=== PATIENT | male | born 1970 | race Caucasian/White ===

== ENCOUNTER 2017-01-19 15:50 | Inpatient (IN) | payer OTHER ==
[~2017-01-19] VITALS: Ht 193 cm; Wt 101.4 kg
[~2017-01-19 15:50] MED LIST: GABA-113 PO; HMLI SC; IBUP-1050 PO; INSUINJ12 SC; METF-384 PO; ONDA8TAB7 PO; PROC1TAB5 PO; XLD/500 PO
[2017-01-19] MEDS ORDERED: VANCOMYCIN 1GM/270ML NSS IV STA (17:58)
[2017-01-19] MEDS ORDERED: PIPERACILLIN/TAZOBACTAM 4.5 GM/100ML D5W IV STA (17:58)
[2017-01-19] MEDS ORDERED: SODIUM CHLORIDE 0.9% 1000ML 1,000 ML IV ONE (18:00)
[2017-01-19] MEDS ORDERED: TRIF0.27 PO (18:01)
[2017-01-19] MEDS ORDERED: ATOR-22 PO (18:06)
[2017-01-19] MEDS ORDERED: NITR1CAP32 PO (18:07)
[2017-01-19] MEDS ORDERED: NITR100C41 PO (18:08)
[2017-01-19] MEDS ORDERED: OLAN10TA11 PO (18:09)
[2017-01-19] MEDS ORDERED: LVMI SC (18:15)
[2017-01-19] MEDS ORDERED: ZFR/8 PO (18:20)
[2017-01-19 18:36] LABS: BASO % 0.2 %; BASO ABS # 0.01 K/uL (0-0.2); COMPLETE YES; EOS % 0.7 %; HEMATOCRIT 31.2 % (42-52); IG% 0.2 %; LYMPH % 18.2 %; LYMPH ABS # 1.02 K/uL (1.2-3.4); MEAN CELL VOLUME 80.4 fL (80-100); MEAN CORPUSCULAR HEMOGLOBIN 26.5 pg (25-34); MEAN PLATELET VOLUME 9.4 fL (7.4-10.4); MONO % 10.2 %; NEUT % 70.5 %; PLATELET COUNT 372 K/uL (130-400); RED BLOOD COUNT 3.88 M/uL (4.7-6.1); WHITE BLOOD COUNT 5.59 K/uL (4.8-10.8)
[2017-01-19 18:53] LABS: CALCIUM 9.2 mg/dl (8.5-10.1); CREATININE 1.7 mg/dl (0.60-1.40); POTASSIUM 4.4 mmol/L (3.5-5.1)
[2017-01-19 19:03] LABS: BETA-HYDROXYBUTYRATE 0.92 mg/dL (0.2-2.81)
--- NOTE | 2017-01-19 19:12 | DIAGNOSTIC IMAGING REPORT ---
RIGHT FOOT MIN 3 VIEWS ROUTINE CLINICAL HISTORY: foot infection Right pain COMPARISON: 11/18/2013 DISCUSSION: Prior dictation phalanges of the right great toe. Cortical fracture distal aspect proximal phalanx fourth toe. Localized soft tissue edematous change. Heel spur. Soft tissue vascular calcifications. Moderate generalized soft tissue edema IMPRESSION: Cortical fracture distal aspect proximal phalanx fourth toe. Soft tissue edematous change. Postoperative changes as noted Electronically signed by: Edmund Iniguez M.D. 01/19/2017 7:10 PM Dictated Date/Time: 01/19/2017 7:09 PM
[2017-01-19] MEDS ORDERED: GLUCOSE 10 TABS/TUBE PO PRN (19:30)
[2017-01-19] MEDS ORDERED: ACETAMINOPHEN 325 MG TAB PO PRN (19:30)
[2017-01-19] MEDS ORDERED: ONDANSETRON INJ 2 MG/ML 2 ML VIAL IV PRN (19:30)
[2017-01-19] MEDS ORDERED: GLUCAGON FOR INJ 1 MG VIAL SQ PRN (19:30)
[2017-01-19] MEDS ORDERED: ONDANSETRON 8 MG TAB PO PRN (19:30)
[2017-01-19] MEDS ORDERED: GLUCOSE 40% GEL 15 GM TUBE PO PRN (19:30)
[2017-01-19] MEDS ORDERED: PROCHLORPERAZINE MALEATE 10 MG TAB PO PRN (19:30)
[2017-01-19] MEDS ORDERED: ZOLPIDEM TARTRATE 5 MG TAB PO PRN (19:30)
[2017-01-19] MEDS ORDERED: DEXTROSE 50% 50 ML SYR IV PRN (19:30)
[2017-01-19] MEDS ORDERED: VANCOMYCIN CONSULT ACTIVE PRN (21:00)
[2017-01-19] MEDS ORDERED: PIPERACILL/TAZOBAC CONSULT ACTIVE PRN (21:00)
--- NOTE | 2017-01-19 21:11 | History and Physical ---
History & Physical Date & Time of Service: Jan 19, 2017 at 21:11 Chief Complaint: Smashed 4TH Toe On Rt Foot Primary Care Physician: Ozzie Cohen M.D. History of Present Illness Source: patient The patient is a 46-year-old male who presents to the emergency department complaining of progressively worsening redness and swelling after injuring his right fourth toe by dropping a heavy object on it several days ago. He has a previous history of diabetic foot ulcers, and is status post amputation of his right great toe. He reports that he was hoping that the symptoms will go away on their own, as he was also hoping that his abnormally high blood sugars in the 250s and 300s since he injured his foot will go away as well. Because of worsening symptoms, he presents to the emergency department for assessment tonight. Past Medical/Surgical History Medical Problems: (1) Colon Cancer Status: Chronic (2) Colostomy Status: Resolved (3) Diabetes mellitus Status: Chronic (4) Necrotizing fasciitis Status: Resolved (5) Rectal adenocarcinoma Status: Chronic Family History No significant family history Social History Smoking Status: Never Smoker Smokeless Tobacco Use: No Alcohol Use: none Drug Use: none Marital Status: single Occupational Status: employed Immunizations History of Influenza Vaccine: Yes Influenza Vaccine Date: Jul 26, 2013 History of Tetanus Vaccine?: utd History of Pneumococcal: Unknown History of Hepatitis B Vaccine: No Multi-Drug Resistant Organisms History of MDRO: No Allergies Coded Allergies: No Known Allergies (Verified , 01/19/17) Home Medications Scheduled Atorvastatin (Lipitor), 20 MG PO HS Gabapentin (Neurontin), 300 MG PO TID Insulin Detemir (Levemir), 100 UNITS SC HS Insulin Lispro (Humalog), 16 UNITS SC AC Metformin Hcl (Glucophage), 1,000 MG PO BID Nitrofurantoin Macrocrystal (Nitrofurantoin), 100 MG PO QPM Olanzapine (Zyprexa), 10 MG PO DAILY Trifluridine-Tipiracil (Lonsurf 20-8.19 mg), 4 TABS PO QAM AND QPM Scheduled PRN Ondansetron (Ondansetron HCl), 8 MG PO Q8H PRN for Nausea Prochlorperazine Maleate (Compazine), 10 MG PO Q6H PRN for Nausea Review of Systems The patient denies chest pain, palpitations, shortness of breath, cough, vision change, hearing change, sore throat, fevers, chills, sweats, weight change, fatigue, nausea, vomiting, abdominal pain, pelvic pain, blood in urine or stool , dysuria, urinary frequency or urgency, lightheadedness, dizziness, headache, memory loss, rash, abnormal bruising or bleeding, imbalance, focal or generalized weakness, arthralgias or myalgias, back or neck pain, night sweats, or allergy symptoms. The review of systems is otherwise negative other than for that already noted above, and at least 10 systems have been reviewed. Physical Exam Vital Signs Date Time Temp Pulse Resp B/P Pulse Ox O2 Delivery O2 Flow Rate FiO2 01/19/17 21:03 104 20 116/83 94 01/19/17 19:21 95 20 111/70 99 Room Air 01/19/17 18:06 103 18 114/77 98 Room Air 01/19/17 15:52 36.6 118 18 117/71 99 Room Air The patient is awake, well-developed and adequately nourished, alert and oriented 3, normocephalic and atraumatic, lying in bed and in no acute distress. HEENT--PERRL, EOMI, mucous membranes and oropharynx dry. Neck--supple, no JVD or bruits, thyroid normal, trachea midline, no adenopathy. Heart--normal S1 and S2, no extra beats, no murmurs, rubs or gallops. Lungs--clear bilaterally with good air movement, no respiratory distress, no accessory muscle use. Abdomen--normal bowel sounds and soft, nontender and nondistended, no hernias or masses, no organomegaly. Extremities--left lower extremity-no cyanosis, clubbing or edema. There are diminished distal pulses b/l. Right lower extremity with 2+ pedal edema, right great toe amputation, erythema and warmth third and fourth toes and skin over second through fifth metatarsals. Dermatologic--normal skin turgor, normal color, warm and dry, no abnormal lymph nodes, no rash. Neurologic--cranial nerves II through XII grossly intact, motor and sensory examination normal. Rheumatologic--normal range of motion, nontender, muscles and joints. Psychiatric--normal affect. Diagnostics Laboratory Results Results Past 24 Hours Test 01/19/17 18:10 01/19/17 18:12 01/19/17 19:29 Range/Units White Blood Count 5.59 4.8-10.8 K/uL Red Blood Count 3.88 4.7-6.1 M/uL Hemoglobin 10.3 14.0-18.0 g/dL Hematocrit 31.2 42-52 % Mean Corpuscular Volume 80.4 80-100 fL Mean Corpuscular Hemoglobin 26.5 25-34 pg Mean Corpuscular Hemoglobin Concent 33.0 32-36 g/dl Platelet Count 372 130-400 K/uL Mean Platelet Volume 9.4 7.4-10.4 fL Neutrophils (%) (Auto) 70.5 % Lymphocytes (%) (Auto) 18.2 % Monocytes (%) (Auto) 10.2 % Eosinophils (%) (Auto) 0.7 % Basophils (%) (Auto) 0.2 % Neutrophils # (Auto) 3.94 1.4-6.5 K/uL Lymphocytes # (Auto) 1.02 1.2-3.4 K/uL Monocytes # (Auto) 0.57 0.11-0.59 K/uL Eosinophils # (Auto) 0.04 0-0.5 K/uL Basophils # (Auto) 0.01 0-0.2 K/uL RDW Standard Deviation 47.0 36.4-46.3 fL RDW Coefficient of Variation 16.2 11.5-14.5 % Immature Granulocyte % (Auto) 0.2 % Immature Granulocyte # (Auto) 0.01 0.00-0.02 K/uL Sodium Level 135 136-145 mmol/L Potassium Level 4.4 3.5-5.1 mmol/L Chloride Level 102 98-107 mmol/L Carbon Dioxide Level 21 21-32 mmol/L Anion Gap 12.0 3-11 mmol/L Blood Urea Nitrogen 29 7-18 mg/dl Creatinine 1.70 0.60-1.40 mg/dl Est Creatinine Clear Calc Drug Dose 65.9 ml/min Estimated GFR () 54.5 Estimated GFR (Non- 47.0 BUN/Creatinine Ratio 17.0 10-20 Random Glucose 325 70-99 mg/dl Calcium Level 9.2 8.5-10.1 mg/dl Beta-Hydroxybutyric Acid 0.92 0.2-2.81 mg/dL Bedside Lactic Acid Venous 2.93 0.90-1.70 mmol/L Bedside Glucose 351 70-99 mg/dl Microbiology Results 01/19/17 Blood Culture, Received Pending 01/19/17 Blood Culture, Received Pending Diagnostic Radiology Patient Name: LUCILLE EASTON Unit Number: [id number] Dictated: 01/19/171908 Transcribed: 01/19/171908 MS Printed Date/Time: [~ rep prt dt]/[~ rep prt tm] [~ rep ct labl] - [~ rep ct ivnm] [facility] [place] [address] Dictated: 01/19/171908 Transcribed: 01/19/171908 MS Printed Date/Time: [~ rep prt dt]/[~ rep prt tm] [~ rep ct labl] - [~ rep ct ivnm] [~ rep ct add3]] RIGHT FOOT MIN 3 VIEWS ROUTINE CLINICAL HISTORY: foot infection Right pain COMPARISON: 11/18/2013 DISCUSSION: Prior dictation phalanges of the right great toe. Cortical fracture distal aspect proximal phalanx fourth toe. Localized soft tissue edematous change. Heel spur. Soft tissue vascular calcifications. Moderate generalized soft tissue edema IMPRESSION: Cortical fracture distal aspect proximal phalanx fourth toe. Soft tissue edematous change. Postoperative changes as noted Electronically signed by: Lucille Iniguez M.D. 01/19/2017 7:10 PM Dictated Date/Time: 01/19/2017 7:09 PM The status of this report is Signed. Draft = Not yet reviewed or approved by Radiologist. Signed = Reviewed and approved by Radiologist. <AttendingPhy></AttendingPhy> <FamilyPhy>Ozzie Cohen M.D.</FamilyPhy> < PrimaryPhy>Ozzie Cohen M.D.</PrimaryPhy> <UnitNumber>[id number]</UnitNumber > <VisitNumber>[id number]</VisitNumber> <PatientName>LUCILLE EASTON</ PatientName> <DateOfBirth>1970</DateOfBirth> <Location>C.EDC</Location> < ServiceDate>01/19/17</ServiceDate> <MNE>ESINDI</MNE> <OrderingPhy>Juanito Garrido PA-C</OrderingPhy> <OrderingPhyMNE>f rep ord dr mccall</OrderingPhyMNE> < DictatingPhyMNE>f rep dict dr mccall</DictatingPhyMNE> <CCListMNE>f rep ct mne</ CCListMNE> <AdmittingPhyMNE>f pt admit dr mccall</AdmittingPhyMNE> <AttendingPhyMNE >f pt attend dr mccall</AttendingPhyMNE> <ConsultingPhyMNE>f pt consult dr mccall</ConsultingPhyMNE> <FamilyPhyMNE>f pt fam dr mccall</FamilyPhyMNE> <OtherPhyMNE>f pt other dr mccall</OtherPhyMNE> < PrimaryPhyMNE>f pt prim care dr mccall</PrimaryPhyMNE> <ReferringPhyMNE>f pt referring dr mccall</ReferringPhyMNE> Patient Name: LUCILLE EASTON Unit Number: [id number] Dictated: 01/19/172142 Transcribed: 01/19/172142 MS Printed Date/Time: [~ rep prt dt]/[~ rep prt tm] [~ rep ct labl] - [~ rep ct ivnm] [facility] [place] [address] Dictated: 01/19/172142 Transcribed: 01/19/172142 MS Printed Date/Time: [~ rep prt dt]/[~ rep prt tm] [~ rep ct labl] - [~ rep ct ivnm] [~ rep ct add3]] ULTRASOUND ART DOP LOWER EXT BILAT CLINICAL HISTORY: diabetic right foot infection COMPARISON STUDY: None FINDINGS: Real-time as well as Doppler evaluation of the arterial structures of the lower legs was performed. Waveforms are triphasic throughout. Velocity characteristics are unremarkable. The following blood pressure indices were obtained. On the right, posterior tibial is 9) and dorsalis pedis is 1.57. On the left, posterior tibial is 1.28 and dorsalis pedis is 1.41. IMPRESSION: Moderate atherosclerotic change throughout. Moderate small vessel change inferior to the knees bilaterally. No evidence for high-grade/or critical stenosis. Electronically signed by: Lucille Iniguez M.D. 01/19/2017 9:46 PM Dictated Date/Time: 01/19/2017 9:43 PM The status of this report is Signed. Draft = Not yet reviewed or approved by Radiologist. Signed = Reviewed and approved by Radiologist. <AttendingPhy>Anmol Henson M.D.</AttendingPhy> <FamilyPhy>Ozzie Cohen M.D.</FamilyPhy> <PrimaryPhy>Ozzie Cohen M.D.</PrimaryPhy> <UnitNumber> [id number]</UnitNumber> <VisitNumber>[id number]</VisitNumber> <PatientName> LUCILLE EASTON</PatientName> <DateOfBirth>1970</DateOfBirth> <Location> C.4E</Location> <ServiceDate>01/19/17</ServiceDate> <MNE>ESINDI</MNE> < OrderingPhy>Anmol Henson M.D.</OrderingPhy> <OrderingPhyMNE>f rep ord dr mccall</OrderingPhyMNE> <DictatingPhyMNE>f rep dict dr mccall</DictatingPhyMNE> < CCListMNE>f rep ct stefany</CCListMNE> <AdmittingPhyMNE>f pt admit dr mccall</ AdmittingPhyMNE> <AttendingPhyMNE>f pt attend dr mccall</AttendingPhyMNE> <ConsultingPhyMNE>f pt consult dr mccall</ConsultingPhyMNE> <FamilyPhyMNE>f pt fam dr mccall</FamilyPhyMNE> <OtherPhyMNE>f pt other dr mccall</OtherPhyMNE> < PrimaryPhyMNE>f pt prim care dr mccall</PrimaryPhyMNE> <ReferringPhyMNE>f pt referring dr mccall</ReferringPhyMNE> Impression Assessment and Plan Right foot diabetic infection/fourth toe proximal phalanx fracture--patient will be admitted to the medical floor. Who placed on vancomycin IV per renal dosing, and Zosyn 3.375 mg IV every 8 hours. He will get a three-phase limited bone scan in the a.m. to assess for possible osteomyelitis. We'll consult infectious disease and wound care to follow patient inpatient and outpatient setting. Of note, he does have a portcan be accessed for long-term antibiotics. We'll also add Floranex 4 tabs by mouth 4 times a day. Diabetes mellitus--continue Levemir insulin 100 units subcutaneous at bedtime. Place on Accu-Cheks before meals and at bedtime with NovoLog coverage. Hold metformin 1000 mg by mouth twice a day and lispro standing order of 16 units subcutaneous before meals. Hypercholesterolemia--continue atorvastatin 20 mg by mouth at bedtime. Next Peripheral neuropathy--continue gabapentin 3 mg by mouth 3 times a day. Metastatic colorectal cancer--continue lonsurf oral chemotherapy. Of note, the patient does have an appointment at [facility] with oncology in 4 days. Level of Care Med/Surg Advanced Directives Existing Advance Directive: No Existing Living Will: No Existing Power of Still Pump Operator: No Resuscitation Status FULL RESUSCITATION VTE Prophylaxis VTE Risk Assessment Done? Y/N: Yes Risk Level: Moderate
--- NOTE | 2017-01-19 21:48 | DIAGNOSTIC IMAGING REPORT ---
ULTRASOUND ART DOP LOWER EXT BILAT CLINICAL HISTORY: diabetic right foot infection COMPARISON STUDY: None FINDINGS: Real-time as well as Doppler evaluation of the arterial structures of the lower legs was performed. Waveforms are triphasic throughout. Velocity characteristics are unremarkable. The following blood pressure indices were obtained. On the right, posterior tibial is 9) and dorsalis pedis is 1.57. On the left, posterior tibial is 1.28 and dorsalis pedis is 1.41. IMPRESSION: Moderate atherosclerotic change throughout. Moderate small vessel change inferior to the knees bilaterally. No evidence for high-grade/or critical stenosis. Electronically signed by: Edmund Iniguez M.D. 01/19/2017 9:46 PM Dictated Date/Time: 01/19/2017 9:43 PM
[2017-01-19 22:00] VITALS: BP 108/72; PULSE 91; TEMP 36.9; O2SAT 98; BMI 27.2
[2017-01-19] MEDS ORDERED: LACTOBACILLUS ACIDOPHILUS (FLORANEX) TAB PO ONE (22:00)
[2017-01-19] MEDS ORDERED: VANCOMYCIN INJ 1,500 MG in SODIUM CHLORIDE 0.9% 500ML 500 ML IV SCH (22:00)
[2017-01-19] MEDS: INSULIN DETEMIR SC SCH (23:00)
[2017-01-19] MEDS: INSULIN ASPART 100 UNITS/ML 3 ML PEN SC SCH (23:01)
[2017-01-20] MEDS: ATORVASTATIN 20 MG TAB PO SCH ×2 (00:03→21:12)
[2017-01-20] MEDS: GABAPENTIN 300 MG CAP PO SCH ×4 (00:03→21:12)
[2017-01-20] MEDS: OLANZAPINE 10 MG TAB PO SCH ×2 (00:04→21:12)
[2017-01-20] MEDS: PIPERACILL/TAZOBAC IV 3.375 GM in DEXTROSE 5% 100ML 100 ML IV SCH ×4 (00:13→23:46)
--- NOTE | 2017-01-20 02:17 | EMERGENCY ROOM VISIT NOTE ---
ED Visit Note First contact with patient: 17:50 Chief Complaint: My right toe is turning black. History of Present Illness: Mr. Rose is a 46-year-old white male who ambulates into the ED complaining of right fourth toe injury. Historically patient has a history of colon cancer, diabetes, diabetic neuropathy, diabetic foot ulcers, status post amputation of right great toe, necrotizing fasciitis and rectal cancer. Patient reports approximately one week ago he dropped something heavy on his right foot injuring the right fourth toe. He reports there was some mild swelling in the area. Then from last night to the day he noted that the toe started turning black. He grew concerning came into the ED. Currently he describes his pain as a deep achy sensation. He rates his discomfort 8/10. The pain is nonradiating. The pain worsens with palpation and percussion off during ambulation. He has not identified any alleviating factors related to the pain. He has been using [id number] medications without relief of his discomfort. He denies any associated fevers, chills, other skin eruptions, other skin color changes, chest pain, shortness of breath, abdominal pain, nausea, vomiting, decreased appetite. Review of Systems: As noted above in history of present illness. 8 body systems were reviewed and found to be negative as noted above. Past Medical History: As noted above. Current Medications: Medications Dose Route/Sig Max Daily Dose Days Date Category Dose Instructions Ondansetron HCl (Ondansetron) 8 Mg Tab 8 Mg PO Q8H PRN 01/19/17 Reported Levemir (Insulin Detemir) 100 Units/Ml Inj 100 Units SC HS 01/19/17 Reported Zyprexa (Olanzapine) 10 Mg Tab 10 Mg PO DAILY 01/19/17 Reported Nitrofurantoin (Nitrofurantoin Macrocrystal) 100 Mg Cap 100 Mg PO QPM 01/19/17 Reported Lipitor (Atorvastatin Calcium) 20 Mg Tab 20 Mg PO HS 01/19/17 Reported Lonsurf 20-8.19 mg (Trifluridine-Tipiracil) 1 Tab Tab 4 Tabs PO QAM AND QPM 01/19/17 Reported TAKE 4 TABLETS IN THE MORNING AND EVENING FOLLOWING THE REGIMEN BELOW 5 DAYS ON 3 DAYS OFF 5 DAYS ON 28 HOURS OFF Compazine (Prochlorperazine Maleate) 10 Mg Tab 10 Mg PO Q6H PRN 09/23/15 Reported Humalog (Insulin Human Lispro) Inj 16 Units SC AC 09/23/15 Reported Neurontin (Gabapentin) 300 Mg Cap 300 Mg PO TID 09/23/15 Reported Glucophage (Metformin Hcl) 1,000 Mg Tab 1,000 Mg PO BID 09/23/15 Reported Allergies to Medications: Patient denies. Social History: Patient is currently employed; he feels safe in his home environment; he denies tobacco use. Physical Examination: Vital Signs: Date Time Temp Pulse Resp B/P Pulse Ox O2 Delivery O2 Flow Rate FiO2 01/19/17 19:21 95 20 111/70 99 Room Air 01/19/17 18:06 103 18 114/77 98 Room Air 01/19/17 15:52 36.6 118 18 117/71 99 Room Air GENERAL: 46-year-old male in mild distress due to pain, nontoxic-appearing, afebrile and hemodynamically stable. NEUROLOGICAL: Awake, alert and oriented to person, place and time. Answering questions appropriately and following commands. Normal gait. Good hand eye coordination. SKIN: Warm, dry and pink. Right Fourth Toe: Shows no acute fractures or dislocations. The central portion of the toe appears gangrenous. The toe itself is swollen and there is mild erythema extending into the foot but no true lymphangitis. Capillary refill was brisk. HEENT: Atraumatic and normocephalic. THORAX: Lungs sounds are clear to auscultation and equal bilaterally with symmetrical chest wall. HEART: Regular rate and rhythm. No gallops, rubs or murmurs are appreciated. ABDOMEN: Flat, soft and nontender. Positive bowel sounds in all quadrants. No guarding, rigidity or organomegaly. EXTREMITIES: Moves all extremities well on command and with purpose. All distal neurovascular statuses are intact and equal bilaterally. Right Foot: Please note skin above. Capillary refill is brisk. No palpable bony crepitus. Moderate soft tissue edema. Positive dorsalis pedis and anterior tibialis pulses. Unable to distinguish light sensations to neuropathy. ED Course: Patient is assessed as noted above. Laboratory Testing: Test 01/19/17 18:10 01/19/17 18:12 01/19/17 19:29 Range/Units White Blood Count 5.59 4.8-10.8 K/uL Red Blood Count 3.88 4.7-6.1 M/uL Hemoglobin 10.3 14.0-18.0 g/dL Hematocrit 31.2 42-52 % Mean Corpuscular Volume 80.4 80-100 fL Mean Corpuscular Hemoglobin 26.5 25-34 pg Mean Corpuscular Hemoglobin Concent 33.0 32-36 g/dl Platelet Count 372 130-400 K/uL Mean Platelet Volume 9.4 7.4-10.4 fL Neutrophils (%) (Auto) 70.5 % Lymphocytes (%) (Auto) 18.2 % Monocytes (%) (Auto) 10.2 % Eosinophils (%) (Auto) 0.7 % Basophils (%) (Auto) 0.2 % Neutrophils # (Auto) 3.94 1.4-6.5 K/uL Lymphocytes # (Auto) 1.02 1.2-3.4 K/uL Monocytes # (Auto) 0.57 0.11-0.59 K/uL Eosinophils # (Auto) 0.04 0-0.5 K/uL Basophils # (Auto) 0.01 0-0.2 K/uL RDW Standard Deviation 47.0 36.4-46.3 fL RDW Coefficient of Variation 16.2 11.5-14.5 % Immature Granulocyte % (Auto) 0.2 % Immature Granulocyte # (Auto) 0.01 0.00-0.02 K/uL Sodium Level 135 136-145 mmol/L Potassium Level 4.4 3.5-5.1 mmol/L Chloride Level 102 98-107 mmol/L Carbon Dioxide Level 21 21-32 mmol/L Anion Gap 12.0 3-11 mmol/L Blood Urea Nitrogen 29 7-18 mg/dl Creatinine 1.70 0.60-1.40 mg/dl Est Creatinine Clear Calc Drug Dose 65.9 ml/min Estimated GFR () 54.5 Estimated GFR (Non- 47.0 BUN/Creatinine Ratio 17.0 10-20 Random Glucose 325 70-99 mg/dl Calcium Level 9.2 8.5-10.1 mg/dl Beta-Hydroxybutyric Acid 0.92 0.2-2.81 mg/dL Bedside Lactic Acid Venous 2.93 0.90-1.70 mmol/L Bedside Glucose 351 70-99 mg/dl Blood Culture: Pending Right Foot X-Rays: Was read by myself and the radiologist showing a cortical fracture of the distal aspect of the proximal phalanx of the fourth toe with moderate soft-tissue edematous changes. Patient was hydrated with normal saline and received 4.5 g of Zosyn IV and 1 g of vancomycin IV. Patient was offered pain medications and refused. Patient's case was reviewed with Dr. Lee; we agreed on diagnostic approach , treatment, disposition and plan. Patient's case was consulted with case management and Dr. Shepard, hospitalist, for medical observation/admission. Patient was educated about tonight's findings. Clinical Impression: Gangrenous right toe. Disposition and Plan: Patient be brought in the hospital by Dr. Shepard; please see his notes and orders for final disposition and plan.
[2017-01-20 06:45] LABS: BASO % 0.3 %; BASO ABS # 0.01 K/uL (0-0.2); HEMATOCRIT 28.3 % (42-52); IG% 0.3 %; LYMPH % 29.7 %; LYMPH ABS # 1.14 K/uL (1.2-3.4); MEAN CELL VOLUME 81.6 fL (80-100); MEAN CORPUSCULAR HEMOGLOBIN 25.6 pg (25-34); MEAN CORPUSCULAR HGB CONC 31.4 g/dl (32-36); MEAN PLATELET VOLUME 9.1 fL (7.4-10.4); MONO % 10.4 %; NEUT % 58.3 %; PLATELET COUNT 285 K/uL (130-400); RED BLOOD COUNT 3.47 M/uL (4.7-6.1); WHITE BLOOD COUNT 3.84 K/uL (4.8-10.8)
[2017-01-20 07:16] LABS: CREATININE 1.3 mg/dl (0.60-1.40)
[2017-01-20 07:17] LABS: BUN/CREATININE RATIO 15.6 (10-20); CALCIUM 8.6 mg/dl (8.5-10.1); POTASSIUM 4.1 mmol/L (3.5-5.1)
[2017-01-20 07:28] VITALS: BP 107/68; PULSE 83; TEMP 36.6; O2SAT 98
[2017-01-20 08:14] LABS: COMPLETE YES; GIANT PLATELETS 1+; MICROCYTOSIS PRESENT; POLYCHROMASIA 1+; TOXIC GRANULATION 1+
[2017-01-20] MEDS: LACTOBACILLUS ACIDOPHILUS (FLORANEX) TAB PO SCH ×3 (08:37→18:15)
[2017-01-20] MEDS: INSULIN ASPART 100 UNITS/ML 3 ML PEN SC SCH ×4 (08:48→21:17)
[2017-01-20] MEDS ORDERED: VANCOMYCIN INJ 1,450 MG in SODIUM CHLORIDE 0.9% 500ML 500 ML IV SCH ×2 (09:00→18:00)
--- NOTE | 2017-01-20 10:21 | Pharmacy Progress Note ---
Pharmacy Antibiotic Consult Date of Service: Jan 20, 2017. Pharmacy Dosing Scope Pharmacy is consulted to initiate Vancomycin IV dosing therapy, order appropriate labs and adjust drug dose/frequency. Subjective The patient is a 46 year old male admitted on Jan 19, 2017 at 19:36. Objective Height (Feet): 6 Height (Inches): 4.00 Weight (Kilograms): 101.400 Lab Results (24hrs): Laboratory Tests Test 01/19/17 18:10 01/20/17 06:15 BUN/Creatinine Ratio 17.0 15.6 Blood Urea Nitrogen 29 mg/dl 20 mg/dl Creatinine 1.70 mg/dl 1.30 mg/dl White Blood Count 5.59 K/uL 3.84 K/uL Red Blood Count 3.88 M/uL 3.47 M/uL Hemoglobin 10.3 g/dL 8.9 g/dL Hematocrit 31.2 % 28.3 % Mean Corpuscular Volume 80.4 fL 81.6 fL Mean Corpuscular Hemoglobin 26.5 pg 25.6 pg Mean Corpuscular Hemoglobin Concent 33.0 g/dl 31.4 g/dl Platelet Count 372 K/uL 285 K/uL Mean Platelet Volume 9.4 fL 9.1 fL Neutrophils (%) (Auto) 70.5 % 58.3 % Lymphocytes (%) (Auto) 18.2 % 29.7 % Monocytes (%) (Auto) 10.2 % 10.4 % Eosinophils (%) (Auto) 0.7 % 1.0 % Basophils (%) (Auto) 0.2 % 0.3 % Neutrophils # (Auto) 3.94 K/uL 2.24 K/uL Lymphocytes # (Auto) 1.02 K/uL 1.14 K/uL Monocytes # (Auto) 0.57 K/uL 0.40 K/uL Eosinophils # (Auto) 0.04 K/uL 0.04 K/uL Basophils # (Auto) 0.01 K/uL 0.01 K/uL Micro Results: Item Value Date Time Blood Culture Received 01/19/17 1820 Blood Pending Blood Culture Received 01/19/17 1810 Blood Pending Recent Pertinent Medications Item Value Date Time Piperacillin Sod/ 115 ml @ 28.75 mls/hr 01/20/17 0000 Tazobactam Sod Q8H/IV 01/20/17 0829 3.375 gm/Dextrose Assessment & Plan 46 yo M admitted with Right diabetic foot infection, possible osteo, initiated on Vancomycin and Zosyn IV. Blood cultures pending. Bone scan pending. Vancomycin * Loading dose: 1000 mg IV X 1 in ED 01/19 @1900 + 1500 mg IV X 1 @2300 for a total dose = 2500 mg (25 mg/kg) * Vancomycin 1450 mg IV every 8 hours was originally ordered to start this morning at 0900, however, his renal function has not improved enough yet for this dose to be appropriate (per population kinetic estimation) * Change to Vancomycin 1500 mg IV every 10 hours. * Goal trough level estimate: between 15 - 20 mcg/mL (diabetic foot infection, r/o osteo) * A trough level has been ordered for: @1330 prior to the 1400 dose. Zosyn * 4.5 g IV every 8 hours * Higher dose selected for better penetration into site of infection * No renal adjustment necessary for CrCl >20 mL/min Pharmacy will continue to follow and will adjust dose/frequency as necessary. Thank you
--- NOTE | 2017-01-20 11:09 | Medical Consult ---
Consultation Date of Consultation: Jan 20, 2017. Attending Physician: Anmol Henson M.D. Reason for Consultation: Diabetic foot ulcer History of Present Illness Patient is a 46-year-old diabetic male who presents to the emergency department with complaints of right 4th toe injury. The patient does have history of right great toe amputation. He also has history of diabetes, diabetic neuropathy of the bilateral lower extremities, and colon cancer. The patient states approximately 1 week prior to admission he did dropped something on his right 4th toe. At that time, his toe became very red, but he was hoping that it would go away on its own. After becoming red, his toe became gradually black. He became concerned and presented to the emergency department for evaluation. He states that he does not have a whole lot of feeling in his right lower extremity, but he does feel a deep ache pain. The patient denies fever, sweats, chills, nausea, vomiting, diarrhea, or other associated symptoms. His creatinine on admission was 1.70. His white blood cell count was normal at 5.59. Blood cultures are currently pending. He did have an x- ray of his right foot which showed fracture of the proximal phalanx of the 4th toe, soft tissue changes, and postoperative changes of the right great toe amputation. A lower extremity arterial ultrasound showed moderate atherosclerotic changes throughout, moderate small vessel change inferior to the knees bilaterally, but no evidence for high-grade stenosis. The patient is anticipating bone scan this afternoon. He is currently on IV vancomycin and Zosyn. Past Medical/Surgical History Medical Problems: (1) Pyelonephritis Status: Acute Medical Problems: (1) Colon Cancer (2) Colostomy (3) Diabetes mellitus (4) Diabetic foot ulcer (5) Necrotizing fasciitis (6) Rectal adenocarcinoma Surgical: Hx Right Great toe amputation Family History No significant family history Noncontributory Social History Smoking Status: Never Smoker Smokeless Tobacco Use: No Alcohol Use: none Drug Use: none Marital Status: single Housing Status: lives with family Occupation Status: employed Allergies Coded Allergies: No Known Allergies (Verified , 01/19/17) Home Medications Reported Home Medications Medications Dose Route/Sig Max Daily Dose Days Date Category Dose Instructions Ondansetron HCl (Ondansetron) 8 Mg Tab 8 Mg PO Q8H PRN 01/19/17 Reported Levemir (Insulin Detemir) 100 Units/Ml Inj 100 Units SC HS 01/19/17 Reported Zyprexa (Olanzapine) 10 Mg Tab 10 Mg PO DAILY 01/19/17 Reported Nitrofurantoin (Nitrofurantoin Macrocrystal) 100 Mg Cap 100 Mg PO QPM 01/19/17 Reported Lipitor (Atorvastatin Calcium) 20 Mg Tab 20 Mg PO HS 01/19/17 Reported Lonsurf 20-8.19 mg (Trifluridine-Tipiracil) 1 Tab Tab 4 Tabs PO QAM AND QPM 01/19/17 Reported TAKE 4 TABLETS IN THE MORNING AND EVENING FOLLOWING THE REGIMEN BELOW 5 DAYS ON 3 DAYS OFF 5 DAYS ON 28 HOURS OFF Compazine (Prochlorperazine Maleate) 10 Mg Tab 10 Mg PO Q6H PRN 09/23/15 Reported Humalog (Insulin Human Lispro) Inj 16 Units SC AC 09/23/15 Reported Neurontin (Gabapentin) 300 Mg Cap 300 Mg PO TID 09/23/15 Reported Glucophage (Metformin Hcl) 1,000 Mg Tab 1,000 Mg PO BID 09/23/15 Reported Current Inpatient Medications Current Inpatient Medications Medications (Trade) Dose Ordered Sig/Rosie Route Start Time Stop Time Status Last Admin Dose Admin Acetaminophen (Tylenol Tab) 650 mg Q4H PRN PO 01/19/17 19:30 02/18/17 19:29 Zolpidem Tartrate (Ambien Tab) 5 mg HSZ PRN PO 01/19/17 19:30 02/18/17 19:29 Ondansetron HCl (Zofran Inj) 4 mg Q6H PRN IV 01/19/17 19:30 02/18/17 19:29 Insulin Aspart (novoLOG ASPART) SLIDING SCALE If C... ACHS SC 01/19/17 21:00 02/18/17 20:59 01/20/17 08:48 4 UNITS Glucose (Glucose 40% Gel) UD PRN PO 01/19/17 19:30 02/18/17 19:29 Glucose (Glucose Chew Tab) 1 tabs UD PRN PO 01/19/17 19:30 02/18/17 19:29 Dextrose (Dextrose 50% 50ML Syringe) 50 ml UD PRN IV 01/19/17 19:30 02/18/17 19:29 Glucagon (Glucagon Inj) 1 mg UD PRN SQ 01/19/17 19:30 02/18/17 19:29 Atorvastatin Calcium (Lipitor Tab) 20 mg HS PO 01/19/17 21:00 02/18/17 20:59 01/20/17 00:03 20 MG Gabapentin (Neurontin Cap) 300 mg TID PO 01/19/17 21:00 02/18/17 20:59 01/20/17 08:36 300 MG Olanzapine (Zyprexa Tab) 10 mg HS PO 01/19/17 21:00 02/18/17 20:59 01/20/17 00:04 10 MG Ondansetron HCl (Zofran Tab) 8 mg Q8H PRN PO 01/19/17 19:30 02/18/17 19:29 Prochlorperazine Maleate (Compazine Tab) 10 mg Q6H PRN PO 01/19/17 19:30 02/18/17 19:29 Insulin Detemir 100 units 100 units HS SC 01/19/17 21:00 02/18/17 20:59 01/19/17 23:00 100 UNITS Piperacillin Sod/ Tazobactam Sod/ Dextrose (Zosyn Iv/D5 100ml) 115 ml @ 28.75 mls/ hr Q8H IV 01/20/17 00:00 01/30/17 00:00 01/20/17 08:29 28.75 MLS/HR Lactobacillus Acidophilus (Floranex Tab) 4 tab TIDM PO 01/20/17 08:00 02/19/17 07:59 01/20/17 08:37 4 TAB Vancomycin HCl (Consult) 1 ea UD PRN N/A 01/19/17 21:00 02/18/17 20:59 Piperacillin Sod/ Tazobactam Sod (Consult) 1 ea UD PRN N/A 01/19/17 21:00 02/18/17 20:59 Miscellaneous Information 1 ea 1 ea QS N/A 01/20/17 08:00 02/19/17 07:59 Vancomycin HCl/ Sodium Chloride (Vancomycin Inj/ Nss 500ml) 530 ml @ 200 mls/hr Q10H IV 01/20/17 18:00 01/30/17 17:59 Review of Systems Constitutional: No chills, No fever, No sweats Eyes: No worsening of vision ENT: No hearing loss Respiratory: No cough, No shortness of breath Cardiovascular: No chest pain Abdomen: No nausea, No pain, No vomiting Musculoskeletal: + swelling (right distal foot with some "aching" pain) Neurologic: + numbness/tingling (DM neuropathy B/L LE) Integumentary: + color change (erythema of the right distal foot), + new/ changing skin lesions (4th right toe turned black/draining) Physical Exam Date Time Temp Pulse Resp B/P Pulse Ox O2 Delivery O2 Flow Rate FiO2 01/20/17 10:22 Room Air 01/20/17 07:28 36.6 83 16 107/68 98 Room Air 01/20/17 00:00 Room Air 01/19/17 22:00 36.9 91 16 108/72 98 Room Air 01/19/17 21:03 104 20 116/83 94 01/19/17 19:21 95 20 111/70 99 Room Air 01/19/17 18:06 103 18 114/77 98 Room Air 01/19/17 15:52 36.6 118 18 117/71 99 Room Air General Appearance: WD/WN, no apparent distress Head: normocephalic, atraumatic Eyes: normal inspection, sclerae normal ENT: hearing grossly normal Neck: supple, trachea midline Respiratory/Chest: no respiratory distress, no accessory muscle use Cardiovascular: regular rate, rhythm, no gallop, no murmur, + pertinent finding (regular rate) Abdomen/GI: normal bowel sounds, non tender, soft, no organomegaly Back: normal inspection, no CVA tenderness Extremities/Musculoskelatal: normal inspection, no calf tenderness, + pertinent finding (edema noted of the right distal foot) Neurologic/Psych: alert, normal mood/affect Skin: normal color, no rash, + pertinent finding (erythema of the distal right foot. Dark ulceration of the distal 4th toe with some mild drainage noted. ) Lymphatic: no adenopathy Laboratory Results Item Value Date Time Blood Culture Received 01/19/17 1820 Blood Pending Blood Culture Received 01/19/17 1810 Blood Pending RIGHT FOOT MIN 3 VIEWS ROUTINE CLINICAL HISTORY: foot infection Right pain COMPARISON: 11/18/2013 DISCUSSION: Prior dictation phalanges of the right great toe. Cortical fracture distal aspect proximal phalanx fourth toe. Localized soft tissue edematous change. Heel spur. Soft tissue vascular calcifications. Moderate generalized soft tissue edema IMPRESSION: Cortical fracture distal aspect proximal phalanx fourth toe. Soft tissue edematous change. Postoperative changes as notedULTRASOUND ART DOP LOWER EXT BILAT CLINICAL HISTORY: diabetic right foot infection COMPARISON STUDY: None FINDINGS: Real-time as well as Doppler evaluation of the arterial structures of the lower legs was performed. Waveforms are triphasic throughout. Velocity characteristics are unremarkable. The following blood pressure indices were obtained. On the right, posterior tibial is 9) and dorsalis pedis is 1.57. On the left, posterior tibial is 1.28 and dorsalis pedis is 1.41. IMPRESSION: Moderate atherosclerotic change throughout. Moderate small vessel change inferior to the knees bilaterally. No evidence for high-grade/or critical stenosis. Last 24 Hours Test 01/19/17 18:10 01/19/17 18:12 01/19/17 19:29 01/19/17 22:43 White Blood Count 5.59 K/uL Red Blood Count 3.88 M/uL Hemoglobin 10.3 g/dL Hematocrit 31.2 % Mean Corpuscular Volume 80.4 fL Mean Corpuscular Hemoglobin 26.5 pg Mean Corpuscular Hemoglobin Concent 33.0 g/dl Platelet Count 372 K/uL Mean Platelet Volume 9.4 fL Neutrophils (%) (Auto) 70.5 % Lymphocytes (%) (Auto) 18.2 % Monocytes (%) (Auto) 10.2 % Eosinophils (%) (Auto) 0.7 % Basophils (%) (Auto) 0.2 % Neutrophils # (Auto) 3.94 K/uL Lymphocytes # (Auto) 1.02 K/uL Monocytes # (Auto) 0.57 K/uL Eosinophils # (Auto) 0.04 K/uL Basophils # (Auto) 0.01 K/uL RDW Standard Deviation 47.0 fL RDW Coefficient of Variation 16.2 % Immature Granulocyte % (Auto) 0.2 % Immature Granulocyte # (Auto) 0.01 K/uL Sodium Level 135 mmol/L Potassium Level 4.4 mmol/L Chloride Level 102 mmol/L Carbon Dioxide Level 21 mmol/L Anion Gap 12.0 mmol/L Blood Urea Nitrogen 29 mg/dl Creatinine 1.70 mg/dl Est Creatinine Clear Calc Drug Dose 65.9 ml/min Estimated GFR () 54.5 Estimated GFR (Non- 47.0 BUN/Creatinine Ratio 17.0 Random Glucose 325 mg/dl Calcium Level 9.2 mg/dl Beta-Hydroxybutyric Acid 0.92 mg/dL Bedside Lactic Acid Venous 2.93 mmol/L Bedside Glucose 351 mg/dl 172 mg/dl Test 01/20/17 06:15 01/20/17 07:48 White Blood Count 3.84 K/uL Red Blood Count 3.47 M/uL Hemoglobin 8.9 g/dL Hematocrit 28.3 % Mean Corpuscular Volume 81.6 fL Mean Corpuscular Hemoglobin 25.6 pg Mean Corpuscular Hemoglobin Concent 31.4 g/dl Platelet Count 285 K/uL Mean Platelet Volume 9.1 fL Neutrophils (%) (Auto) 58.3 % Lymphocytes (%) (Auto) 29.7 % Monocytes (%) (Auto) 10.4 % Eosinophils (%) (Auto) 1.0 % Basophils (%) (Auto) 0.3 % Neutrophils # (Auto) 2.24 K/uL Lymphocytes # (Auto) 1.14 K/uL Monocytes # (Auto) 0.40 K/uL Eosinophils # (Auto) 0.04 K/uL Basophils # (Auto) 0.01 K/uL RDW Standard Deviation 48.4 fL RDW Coefficient of Variation 16.5 % Immature Granulocyte % (Auto) 0.3 % Immature Granulocyte # (Auto) 0.01 K/uL Toxic Granulation 1+ Giant Platelets 1+ Polychromasia 1+ Microcytosis PRESENT Sodium Level 139 mmol/L Potassium Level 4.1 mmol/L Chloride Level 109 mmol/L Carbon Dioxide Level 21 mmol/L Anion Gap 9.0 mmol/L Blood Urea Nitrogen 20 mg/dl Creatinine 1.30 mg/dl Est Creatinine Clear Calc Drug Dose 86.2 ml/min Estimated GFR () 75.3 Estimated GFR (Non- 65.0 BUN/Creatinine Ratio 15.6 Random Glucose 130 mg/dl Calcium Level 8.6 mg/dl Magnesium Level 2.0 mg/dl Bedside Glucose 111 mg/dl Assessment & Plan Diabetic male with right 4th toe infection/ulceration, surrounding cellulitis, and possible gangrene. He is currently on IV Zosyn and Vancomycin. Blood cultures are pending. Will order surface wound culture as well. Recommend orthopedics also evaluate this patient. Patient is anticipating Bone Scan of the right foot today to evaluate for osteomyelitis. Will continue broad coverage with IV abx pending further workup. Note: This document was dictated utilizing [employer] voice recognition software. Minor errors in lan specialist may be present. PROVIDER ADDENDUM: Patient examined and reviewed with Ms. Galaviz. Agree with above assessment.
[2017-01-20 12:43] VITALS: Ht 193 cm; Wt 101.4 kg
--- NOTE | 2017-01-20 14:22 | DIAGNOSTIC IMAGING REPORT ---
Pain. Osteomyelitis. BONE SCAN 3PHASE WHOLE BODY CLINICAL HISTORY: diabetic right foot infection infection. Cellulitis. TECHNIQUE: Triple phase fashion from the administration of 26 mCi technetium 99m MDP. COMPARISON STUDY: None FINDINGS: Increased vascular flow to the right foot and ankle as compared to the contralateral left. Immediate static delayed images demonstrate increased activity involving the metatarsophalangeal joint regions of the right third and fourth toes. There is low-grade activity involving the left metatarsophalangeal joint L to be degenerative. IMPRESSION: 1. Increased vascular flow to the right foot and ankle suggesting generalized cellulitis. 2. Increase in focal activity distal aspects of the right third and fourth metatarsal at the metatarsophalangeal joints raise the possibility of osteomyelitis. Electronically signed by: Edmund Iniguez M.D. 01/20/2017 2:21 PM Dictated Date/Time: 01/20/2017 2:17 PM
[2017-01-20 15:34] VITALS: BP 110/72; PULSE 83; TEMP 36.7; O2SAT 99
--- NOTE | 2017-01-20 17:04 | Hospitalist Progress Note ---
Hospitalist Progress Note Date of Service Jan 20, 2017. Subjective Pt evaluation today including: conversation w/ patient, physical exam, chart review, review of studies Voiding: no voiding problems Respiratory: No cough, No dyspnea at rest, No dyspnea on exertion, No hemoptysis, No problem reported, No see HPI, No shortness of breath, No sputum, No wheezing Cardiovascular: No PND, No chest pain, No claudication, No edema, No orthopnea, No palpitations, No problem reported, No see HPI Skin: + problem reported (right foot swelling reduced) Objective Vital Signs Date Time Temp Pulse Resp B/P Pulse Ox O2 Delivery O2 Flow Rate FiO2 01/20/17 15:34 36.7 83 20 110/72 99 Room Air 01/20/17 10:22 Room Air 01/20/17 07:28 36.6 83 16 107/68 98 Room Air 01/20/17 00:00 Room Air 01/19/17 22:00 36.9 91 16 108/72 98 Room Air 01/19/17 21:03 104 20 116/83 94 01/19/17 19:21 95 20 111/70 99 Room Air 01/19/17 18:06 103 18 114/77 98 Room Air Physical Exam General Appearance: WD/WN, no apparent distress Eyes: normal inspection, PERRL, EOMI ENT: normal ENT inspection, hearing grossly normal, TMs normal, pharynx normal Neck: supple, no adenopathy, thyroid normal, no carotid bruits, trachea midline Respiratory/Chest: chest non-tender, lungs clear, normal breath sounds, no respiratory distress Cardiovascular: regular rate, rhythm, no edema, no gallop, no JVD, no murmur Abdomen: normal bowel sounds, non tender, soft, no organomegaly Extremities: normal range of motion, non-tender, normal inspection, no pedal edema, + pertinent finding (right foot in dressing) Laboratory Results Last 24 Hours Test 01/19/17 18:10 01/19/17 18:12 01/19/17 19:29 01/19/17 22:43 White Blood Count 5.59 K/uL Red Blood Count 3.88 M/uL Hemoglobin 10.3 g/dL Hematocrit 31.2 % Mean Corpuscular Volume 80.4 fL Mean Corpuscular Hemoglobin 26.5 pg Mean Corpuscular Hemoglobin Concent 33.0 g/dl Platelet Count 372 K/uL Mean Platelet Volume 9.4 fL Neutrophils (%) (Auto) 70.5 % Lymphocytes (%) (Auto) 18.2 % Monocytes (%) (Auto) 10.2 % Eosinophils (%) (Auto) 0.7 % Basophils (%) (Auto) 0.2 % Neutrophils # (Auto) 3.94 K/uL Lymphocytes # (Auto) 1.02 K/uL Monocytes # (Auto) 0.57 K/uL Eosinophils # (Auto) 0.04 K/uL Basophils # (Auto) 0.01 K/uL RDW Standard Deviation 47.0 fL RDW Coefficient of Variation 16.2 % Immature Granulocyte % (Auto) 0.2 % Immature Granulocyte # (Auto) 0.01 K/uL Sodium Level 135 mmol/L Potassium Level 4.4 mmol/L Chloride Level 102 mmol/L Carbon Dioxide Level 21 mmol/L Anion Gap 12.0 mmol/L Blood Urea Nitrogen 29 mg/dl Creatinine 1.70 mg/dl Est Creatinine Clear Calc Drug Dose 65.9 ml/min Estimated GFR () 54.5 Estimated GFR (Non- 47.0 BUN/Creatinine Ratio 17.0 Random Glucose 325 mg/dl Calcium Level 9.2 mg/dl Beta-Hydroxybutyric Acid 0.92 mg/dL Bedside Lactic Acid Venous 2.93 mmol/L Bedside Glucose 351 mg/dl 172 mg/dl Test 01/20/17 06:15 01/20/17 07:48 01/20/17 11:40 01/20/17 16:37 White Blood Count 3.84 K/uL Red Blood Count 3.47 M/uL Hemoglobin 8.9 g/dL Hematocrit 28.3 % Mean Corpuscular Volume 81.6 fL Mean Corpuscular Hemoglobin 25.6 pg Mean Corpuscular Hemoglobin Concent 31.4 g/dl Platelet Count 285 K/uL Mean Platelet Volume 9.1 fL Neutrophils (%) (Auto) 58.3 % Lymphocytes (%) (Auto) 29.7 % Monocytes (%) (Auto) 10.4 % Eosinophils (%) (Auto) 1.0 % Basophils (%) (Auto) 0.3 % Neutrophils # (Auto) 2.24 K/uL Lymphocytes # (Auto) 1.14 K/uL Monocytes # (Auto) 0.40 K/uL Eosinophils # (Auto) 0.04 K/uL Basophils # (Auto) 0.01 K/uL RDW Standard Deviation 48.4 fL RDW Coefficient of Variation 16.5 % Immature Granulocyte % (Auto) 0.3 % Immature Granulocyte # (Auto) 0.01 K/uL Toxic Granulation 1+ Giant Platelets 1+ Polychromasia 1+ Microcytosis PRESENT Sodium Level 139 mmol/L Potassium Level 4.1 mmol/L Chloride Level 109 mmol/L Carbon Dioxide Level 21 mmol/L Anion Gap 9.0 mmol/L Blood Urea Nitrogen 20 mg/dl Creatinine 1.30 mg/dl Est Creatinine Clear Calc Drug Dose 86.2 ml/min Estimated GFR () 75.3 Estimated GFR (Non- 65.0 BUN/Creatinine Ratio 15.6 Random Glucose 130 mg/dl Calcium Level 8.6 mg/dl Magnesium Level 2.0 mg/dl Bedside Glucose 111 mg/dl 193 mg/dl 282 mg/dl Assessment and Plan (1) Diabetic foot ulcer Right foot diabetic infection/fourth toe proximal phalanx fracture--patient will be admitted to the medical floor. Who placed on vancomycin IV per renal dosing, and Zosyn 3.375 mg IV every 8 hours. He will get a three-phase limited bone scan in the a.m. to assess for possible osteomyelitis. We'll consult infectious disease and wound care to follow patient inpatient and outpatient setting. Of note, he does have a portcath that can be accessed for long-term antibiotics. We'll also add Floranex 4 tabs by mouth 4 times a day. Will consult Dr.Mark Burks, [facility] since bone scan is + for osteo. Diabetes mellitus--continue Levemir insulin 100 units subcutaneous at bedtime. Place on Accu-Cheks before meals and at bedtime with NovoLog coverage. Hold metformin 1000 mg by mouth twice a day and lispro standing order of 16 units subcutaneous before meals. Hypercholesterolemia--continue atorvastatin 20 mg by mouth at bedtime. Peripheral neuropathy--continue gabapentin 3 mg by mouth 3 times a day. Metastatic colorectal cancer--continue on oral chemotherapy. Of note, the patient does have an appointment at [facility] with oncology in 4 days.
[2017-01-20] MEDS: VANCOMYCIN INJ 1,500 MG in SODIUM CHLORIDE 0.9% 500ML 500 ML IV SCH (18:14)
[2017-01-20] MEDS: INSULIN DETEMIR SC SCH (21:15)
[2017-01-21 00:26] VITALS: BP 105/67; PULSE 85; TEMP 36.3; O2SAT 97
[2017-01-21] MEDS: VANCOMYCIN INJ 1,500 MG in SODIUM CHLORIDE 0.9% 500ML 500 ML IV SCH ×2 (03:55→14:30)
[2017-01-21 07:46] VITALS: BP 86/54; PULSE 76; TEMP 36.5; O2SAT 98
[2017-01-21] MEDS: PIPERACILL/TAZOBAC IV 3.375 GM in DEXTROSE 5% 100ML 100 ML IV SCH (07:48)
[2017-01-21] MEDS: GABAPENTIN 300 MG CAP PO SCH ×3 (07:48→20:15)
[2017-01-21] MEDS: LACTOBACILLUS ACIDOPHILUS (FLORANEX) TAB PO SCH ×3 (07:54→17:23)
[2017-01-21 08:10] LABS: BASO % 0.2 %; BASO ABS # 0.01 K/uL (0-0.2); COMPLETE YES; EOS % 1.2 %; HEMATOCRIT 28.9 % (42-52); IG% 0.5 %; LYMPH ABS # 1.24 K/uL (1.2-3.4); MEAN CELL VOLUME 82.8 fL (80-100); MEAN CORPUSCULAR HEMOGLOBIN 25.8 pg (25-34); MEAN CORPUSCULAR HGB CONC 31.1 g/dl (32-36); MEAN PLATELET VOLUME 9.2 fL (7.4-10.4); MONO % 11.5 %; NEUT % 57.6 %; PLATELET COUNT 291 K/uL (130-400); RED BLOOD COUNT 3.49 M/uL (4.7-6.1); WHITE BLOOD COUNT 4.27 K/uL (4.8-10.8)
--- NOTE | 2017-01-21 08:34 | Hospitalist Progress Note ---
Hospitalist Progress Note Date of Service Jan 21, 2017. Subjective Pt evaluation today including: conversation w/ patient, physical exam, chart review No complaints Medications Medications (Trade) Dose Ordered Sig/Rosie Route Start Time Stop Time Status Last Admin Dose Admin Vancomycin HCl 1450 mg/Sodium Chloride 529 ml @ 200 mls/hr Q8H IV 01/20/17 09:00 01/20/17 10:06 DC 01/20/17 08:29 200 MLS/HR Vancomycin HCl/ Sodium Chloride (Vancomycin Inj/ Nss 500ml) 530 ml @ 200 mls/hr Q10H IV 01/20/17 18:00 01/30/17 17:59 01/21/17 03:55 200 MLS/HR Objective Vital Signs Date Time Temp Pulse Resp B/P Pulse Ox O2 Delivery O2 Flow Rate FiO2 01/21/17 07:46 36.5 76 16 86/54 98 Room Air 01/21/17 00:26 36.3 85 18 105/67 97 Room Air 01/20/17 23:45 Room Air 01/20/17 19:32 Room Air 01/20/17 15:34 36.7 83 20 110/72 99 Room Air 01/20/17 10:22 Room Air Physical Exam General Appearance: WD/WN, no apparent distress Eyes: normal inspection, PERRL ENT: normal ENT inspection, hearing grossly normal Neck: supple, no adenopathy Respiratory/Chest: chest non-tender, lungs clear Cardiovascular: regular rate, rhythm, no edema, no gallop Abdomen: normal bowel sounds Extremities: + pertinent finding (right foot in dressing) Laboratory Results Last 24 Hours Test 01/20/17 11:40 01/20/17 16:37 01/20/17 20:11 01/21/17 07:17 Bedside Glucose 193 mg/dl 282 mg/dl 280 mg/dl 145 mg/dl Test 01/21/17 07:35 White Blood Count 4.27 K/uL Red Blood Count 3.49 M/uL Hemoglobin 9.0 g/dL Hematocrit 28.9 % Mean Corpuscular Volume 82.8 fL Mean Corpuscular Hemoglobin 25.8 pg Mean Corpuscular Hemoglobin Concent 31.1 g/dl Platelet Count 291 K/uL Mean Platelet Volume 9.2 fL Neutrophils (%) (Auto) 57.6 % Lymphocytes (%) (Auto) 29.0 % Monocytes (%) (Auto) 11.5 % Eosinophils (%) (Auto) 1.2 % Basophils (%) (Auto) 0.2 % Neutrophils # (Auto) 2.46 K/uL Lymphocytes # (Auto) 1.24 K/uL Monocytes # (Auto) 0.49 K/uL Eosinophils # (Auto) 0.05 K/uL Basophils # (Auto) 0.01 K/uL RDW Standard Deviation 49.6 fL RDW Coefficient of Variation 16.7 % Immature Granulocyte % (Auto) 0.5 % Immature Granulocyte # (Auto) 0.02 K/uL Diagnostic Results Pain. Osteomyelitis. BONE SCAN 3PHASE WHOLE BODY CLINICAL HISTORY: diabetic right foot infection infection. Cellulitis. TECHNIQUE: Triple phase fashion from the administration of 26 mCi technetium 99m MDP. COMPARISON STUDY: None FINDINGS: Increased vascular flow to the right foot and ankle as compared to the contralateral left. Immediate static delayed images demonstrate increased activity involving the metatarsophalangeal joint regions of the right third and fourth toes. There is low-grade activity involving the left metatarsophalangeal joint L to be degenerative. IMPRESSION: 1. Increased vascular flow to the right foot and ankle suggesting generalized cellulitis. 2. Increase in focal activity distal aspects of the right third and fourth metatarsal at the metatarsophalangeal joints raise the possibility of osteomyelitis. Electronically signed by: Edmund Iniguez M.D. 01/20/2017 2:21 PM Dictated Date/Time: 01/20/2017 2:17 PM Assessment and Plan (1) Diabetic foot ulcer Right foot diabetic infection/fourth toe proximal phalanx fracture--patient will be admitted to the medical floor. Who placed on vancomycin IV per renal dosing, and Zosyn 3.375 mg IV every 8 hours. He will get a three-phase limited bone scan in the a.m. to assess for possible osteomyelitis. We'll consult infectious disease and wound care to follow patient inpatient and outpatient setting. Of note, he does have a portcath that can be accessed for long-term antibiotics. We'll also add Floranex 4 tabs by mouth 4 times a day. Will consult [facility] Dwyer since bone scan is + for osteo. Blood cultures are negative so far. Diabetes mellitus--continue Levemir insulin 100 units subcutaneous at bedtime. Place on Accu-Cheks before meals and at bedtime with NovoLog coverage. Hold metformin 1000 mg by mouth twice a day and lispro standing order of 16 units subcutaneous before meals. Hypercholesterolemia--continue atorvastatin 20 mg by mouth at bedtime. Peripheral neuropathy--continue gabapentin 3 mg by mouth 3 times a day. Metastatic colorectal cancer--continue on oral chemotherapy. Of note, the patient does have an appointment at [facility] with oncology in 4 days.
[2017-01-21] MEDS: INSULIN ASPART 100 UNITS/ML 3 ML PEN SC SCH ×4 (08:39→20:25)
[2017-01-21 08:41] LABS: ALB/GLOB RATIO 0.4 (0.9-2); CREATININE 1.2 mg/dl (0.60-1.40); MAGNESIUM 1.7 mg/dl (1.8-2.4); POTASSIUM 4.3 mmol/L (3.5-5.1)
[2017-01-21 10:37] VITALS: BP 105/69
[2017-01-21 11:03] VITALS: BP 103/68; PULSE 80; TEMP 36.2; O2SAT 98
--- NOTE | 2017-01-21 12:43 | Infectious Disease Progress Nt ---
Progress Note Date of Service Jan 21, 2017. Subjective Pt evaluation today including: conversation w/ patient, physical exam, chart review, lab review, review of studies, review of inpatient medication list WBC count today 4.27. Creatinine this morning is 1.20. Wound culture is growing GB Strep with sensitivities pending. Blood cultures showing no growth. Patient is tolerating IV therapy well. Bone scan showed possible osteomyelitis of the 3rd and 4th metatarsals at the distal portions. Note wound care provider consult pending. All Other Systems: Reviewed and Negative Medications Current Inpatient Medications Medications (Trade) Dose Ordered Sig/Rosie Route Start Time Stop Time Status Last Admin Dose Admin Acetaminophen (Tylenol Tab) 650 mg Q4H PRN PO 01/19/17 19:30 02/18/17 19:29 Zolpidem Tartrate (Ambien Tab) 5 mg HSZ PRN PO 01/19/17 19:30 02/18/17 19:29 Ondansetron HCl (Zofran Inj) 4 mg Q6H PRN IV 01/19/17 19:30 02/18/17 19:29 Insulin Aspart (novoLOG ASPART) SLIDING SCALE If C... ACHS SC 01/19/17 21:00 02/18/17 20:59 01/21/17 08:39 3 UNITS Glucose (Glucose 40% Gel) UD PRN PO 01/19/17 19:30 02/18/17 19:29 Glucose (Glucose Chew Tab) 1 tabs UD PRN PO 01/19/17 19:30 02/18/17 19:29 Dextrose (Dextrose 50% 50ML Syringe) 50 ml UD PRN IV 01/19/17 19:30 02/18/17 19:29 Glucagon (Glucagon Inj) 1 mg UD PRN SQ 01/19/17 19:30 02/18/17 19:29 Atorvastatin Calcium (Lipitor Tab) 20 mg HS PO 01/19/17 21:00 02/18/17 20:59 01/20/17 21:12 20 MG Gabapentin (Neurontin Cap) 300 mg TID PO 01/19/17 21:00 02/18/17 20:59 01/21/17 07:48 300 MG Olanzapine (Zyprexa Tab) 10 mg HS PO 01/19/17 21:00 02/18/17 20:59 01/20/17 21:12 10 MG Ondansetron HCl (Zofran Tab) 8 mg Q8H PRN PO 01/19/17 19:30 02/18/17 19:29 Prochlorperazine Maleate (Compazine Tab) 10 mg Q6H PRN PO 01/19/17 19:30 02/18/17 19:29 Insulin Detemir 100 units 100 units HS SC 01/19/17 21:00 02/18/17 20:59 01/20/17 21:15 100 UNITS Piperacillin Sod/ Tazobactam Sod/ Dextrose (Zosyn Iv/D5 100ml) 115 ml @ 28.75 mls/ hr Q8H IV 01/20/17 00:00 01/30/17 00:00 01/21/17 07:48 28.75 MLS/HR Lactobacillus Acidophilus (Floranex Tab) 4 tab TIDM PO 01/20/17 08:00 02/19/17 07:59 01/21/17 07:54 4 TAB Vancomycin HCl (Consult) 1 ea UD PRN N/A 01/19/17 21:00 02/18/17 20:59 Piperacillin Sod/ Tazobactam Sod (Consult) 1 ea UD PRN N/A 01/19/17 21:00 02/18/17 20:59 Miscellaneous Information 1 ea 1 ea QS N/A 01/20/17 08:00 02/19/17 07:59 Vancomycin HCl/ Sodium Chloride (Vancomycin Inj/ Nss 500ml) 530 ml @ 200 mls/hr Q10H IV 01/20/17 18:00 01/30/17 17:59 01/21/17 03:55 200 MLS/HR Objective Vital Signs Date Time Temp Pulse Resp B/P Pulse Ox O2 Delivery O2 Flow Rate FiO2 01/21/17 11:03 36.2 80 17 103/68 98 Room Air 01/21/17 10:37 105/69 01/21/17 08:00 Room Air 01/21/17 07:46 36.5 76 16 86/54 98 Room Air 01/21/17 00:26 36.3 85 18 105/67 97 Room Air 01/20/17 23:45 Room Air 01/20/17 19:32 Room Air 01/20/17 15:34 36.7 83 20 110/72 99 Room Air Physical Exam General Appearance: WD/WN, no apparent distress Eyes: normal inspection, sclerae normal ENT: hearing grossly normal Neck: supple, trachea midline Respiratory/Chest: no respiratory distress, no accessory muscle use Cardiovascular: regular rate, rhythm Extremities: + pertinent finding (mild edema of the righ distal foot. ) Neurologic/Psychiatric: alert, normal mood/affect Skin: + pertinent finding (Black area on the dorsal right 4th toe. Decreased surrounding erythema today. Foul smelling drainage noted on bandage when removed. ) Laboratory Results RUN DATE: 01/21/17 [facility] PAGE 1 RUN TIME: 1045 Specimen Inquiry PATIENT: LUCILLE EASTON LOC: Norm U # : [id number] AGE/SX: 46/M ROOM: E409 REG : 01/19/[address]: Anmol Henson M.D : 1970 BED: 1 DIS : STATUS: ADM IN TLOC: SPEC #: [id number] ELEUTERIO: 01/20/17 STATUS: RES REQ #: [id number] RECD: 01/20/[address]: Klaee Galaviz . BURKE SOURCE: ULCER ENTR: 01/20/[address] [facility] DR: Romaine Campo MD SPDESC: TOE R4 Anmol Henson M.D., Dennis, M.D. ORDERED: SURF WND CU/[facility] COMMENTS: Has Specimen Been Obtained/Collected? Y Procedure Result Verified Site GRAM STAIN Final 01/21/17 RESULT FEW GRAM POSITIVE COCCI FEW GRAM POSITIVE BACILLI FEW EPITHELIAL CELLS RARE WBCs SEEN SURFACE WOUND CULTURE Preliminary 01/21/17 Organism 1 GROUP B BETA STREP QUANITY MODERATE SENS SENSITIVITY TO FOLLOW Item Value Date Time Gram Stain - Final Resulted 01/20/17 1124 Ulcer Toe Right 4 Blood Culture - Preliminary Resulted 01/19/17 1820 Blood NO GROWTH TO DATE. Blood Culture - Preliminary Resulted 01/19/17 1810 Blood NO GROWTH TO DATE. BONE SCAN 3PHASE WHOLE BODY CLINICAL HISTORY: diabetic right foot infection infection. Cellulitis. TECHNIQUE: Triple phase fashion from the administration of 26 mCi technetium 99m MDP. COMPARISON STUDY: None FINDINGS: Increased vascular flow to the right foot and ankle as compared to the contralateral left. Immediate static delayed images demonstrate increased activity involving the metatarsophalangeal joint regions of the right third and fourth toes. There is low-grade activity involving the left metatarsophalangeal joint L to be degenerative. IMPRESSION: 1. Increased vascular flow to the right foot and ankle suggesting generalized cellulitis. 2. Increase in focal activity distal aspects of the right third and fourth metatarsal at the metatarsophalangeal joints raise the possibility of osteomyelitis. Last 24 Hours Test 01/20/17 16:37 01/20/17 20:11 01/21/17 07:17 01/21/17 07:35 Bedside Glucose 282 mg/dl 280 mg/dl 145 mg/dl White Blood Count 4.27 K/uL Red Blood Count 3.49 M/uL Hemoglobin 9.0 g/dL Hematocrit 28.9 % Mean Corpuscular Volume 82.8 fL Mean Corpuscular Hemoglobin 25.8 pg Mean Corpuscular Hemoglobin Concent 31.1 g/dl Platelet Count 291 K/uL Mean Platelet Volume 9.2 fL Neutrophils (%) (Auto) 57.6 % Lymphocytes (%) (Auto) 29.0 % Monocytes (%) (Auto) 11.5 % Eosinophils (%) (Auto) 1.2 % Basophils (%) (Auto) 0.2 % Neutrophils # (Auto) 2.46 K/uL Lymphocytes # (Auto) 1.24 K/uL Monocytes # (Auto) 0.49 K/uL Eosinophils # (Auto) 0.05 K/uL Basophils # (Auto) 0.01 K/uL RDW Standard Deviation 49.6 fL RDW Coefficient of Variation 16.7 % Immature Granulocyte % (Auto) 0.5 % Immature Granulocyte # (Auto) 0.02 K/uL Sodium Level 141 mmol/L Potassium Level 4.3 mmol/L Chloride Level 112 mmol/L Carbon Dioxide Level 23 mmol/L Anion Gap 6.0 mmol/L Blood Urea Nitrogen 12 mg/dl Creatinine 1.20 mg/dl Est Creatinine Clear Calc Drug Dose 93.4 ml/min Estimated GFR () 83.0 Estimated GFR (Non- 71.6 BUN/Creatinine Ratio 10.0 Random Glucose 135 mg/dl Calcium Level 9.0 mg/dl Magnesium Level 1.7 mg/dl Total Bilirubin 0.3 mg/dl Aspartate Amino Transf (AST/SGOT) 10 U/L Alanine Aminotransferase (ALT/SGPT) 10 U/L Alkaline Phosphatase 58 U/L Total Protein 7.6 gm/dl Albumin 2.3 gm/dl Globulin 5.3 gm/dl Albumin/Globulin Ratio 0.4 Test 01/21/17 11:17 Bedside Glucose 199 mg/dl Assessment and Plan (1) Diabetic foot ulcer Diabetic male with right 4th toe infection/ulceration, surrounding cellulitis, and probable gangrene. He is currently on IV Zosyn and Vancomycin. Blood cultures showing NGTD. Wound culture growing GBS with sensitivities pending. Will D/C IV Zosyn and continue Vancomycin pending culture results. Had a long discussion with this patient in regards to probable bone infection and gangrene of the 4th toe. He would prefer not to do IV antibiotics. Will consult orthopedics to evaluate this patient's toes and probable osteomyelitis. If not a surgical candidate, patient would prefer to continue on PO abx rather than 6 weeks of IV therapy. If ortho recommends continued IV therapy over surgical intervention, I would recommend checking to see if this patient would be a potential candidate for IV Dalvance (once every 2 week IV abx therapy), otherwise likely would consider PO Zyvox. We will continue to follow along. PROVIDER ADDENDUM: Patient reviewed with Ms. Galaviz. Agree with above assessment.
[2017-01-21] MEDS ORDERED: VANCOMYCIN TROUGH SCH (13:30)
--- NOTE | 2017-01-21 14:08 | CONSULTATION REPORT ---
DATE OF CONSULTATION: 01/21/2017 CHIEF COMPLAINT: Redness, swelling, trauma to the 4th toe right foot. HISTORY OF PRESENT ILLNESS: The patient states that approximately 1 week ago, a heavy piece of machinery fell on his toe. Following this, the toe became red, swollen, with increased pain. This worsened and the patient presented to the hospital and was admitted 2 days prior. The patient states that he has no significant pain at the present time. Denies any fever, chills, or night sweats. Denies any chest pain, shortness of breath, abdominal discomfort, nausea or vomiting. The patient has had prior amputation of the great toe on the right foot due to a diabetic foot ulcer. The patient denies any other systemic complaints. PAST MEDICAL HISTORY: Positive for colon cancer, diabetes, necrotizing fasciitis, rectal adenocarcinoma. PAST SURGICAL HISTORY: Positive for colostomy, nephrostomy, cancer surgery. MEDICATIONS: Noted in the nursing list were reviewed. SOCIAL HISTORY: The patient is a nonsmoker, lives at home, single. ALLERGIES: None. REVIEW OF SYSTEMS: Ten systems were reviewed in their entirety and positive findings were noted in the chief complaint and history of present illness. PHYSICAL EXAMINATION: VITAL SIGNS: Reviewed and found to be unremarkable. The patient is afebrile. GENERAL: The patient is sitting in a hospital bed in no acute distress, alert and cooperative throughout the examination. HEENT: Pupils equal and reactive to light. Sclerae clear. NECK: Supple. CHEST: Heart and lungs clear to auscultation. EXTREMITIES: Reveal the presence of a traumatic wound with eschar formation to the 4th digit of the right foot. This wound site is 3/4 circumferential at proximal portion of the toe with a blackened eschar that is noted. Distal capillary refill is less than 2 seconds. Proximal pulses are intact. NEUROLOGIC: The patient is alert and oriented x3. There are no focal deficits noted. IMPRESSION: Fracture 4th toe, right foot. PLAN: At this time, the site did require debridement. With the patient's permission, this was performed with scissors and forceps. Surrounding blackened eschar with necrotic skin was removed. Underlying slough was also removed. Minimal bleeding occurred which was controlled with direct pressure. This site will be dressed with Santyl and gauze, changed on a daily basis. The patient will be reevaluated in 48 hours in the outpatient setting. The patient states he has to return to [facility] at 9:00 on Thursday for nephrostomy tube replacement. Culture was also obtained of the site even though the patient is currently on antibiotic therapy. This represented an excisional debridement of less than 20 square cm.
[2017-01-21 15:31] VITALS: BP 110/68; PULSE 89; TEMP 36.5; O2SAT 95
--- NOTE | 2017-01-21 15:39 | Pharmacy Progress Note ---
Pharmacy Antibiotic Prog Note Date of Service: Jan 21, 2017. Subjective: The patient is currently receiving Vancomycin 1500 mg IV every 10 hours. The patient is currently on day # 3 of IV therapy. Objective: Height (Feet): 6 Height (Inches): 4.00 Weight (Kilograms): 101.400 Levels: Item Value Date Time Vancomycin Level Trough 24.0 mcg/ml 01/21/17 1316 Lab Results (24hrs): Laboratory Tests Test 01/21/17 07:35 BUN/Creatinine Ratio 10.0 Blood Urea Nitrogen 12 mg/dl Creatinine 1.20 mg/dl White Blood Count 4.27 K/uL Red Blood Count 3.49 M/uL Hemoglobin 9.0 g/dL Hematocrit 28.9 % Mean Corpuscular Volume 82.8 fL Mean Corpuscular Hemoglobin 25.8 pg Mean Corpuscular Hemoglobin Concent 31.1 g/dl Platelet Count 291 K/uL Mean Platelet Volume 9.2 fL Neutrophils (%) (Auto) 57.6 % Lymphocytes (%) (Auto) 29.0 % Monocytes (%) (Auto) 11.5 % Eosinophils (%) (Auto) 1.2 % Basophils (%) (Auto) 0.2 % Neutrophils # (Auto) 2.46 K/uL Lymphocytes # (Auto) 1.24 K/uL Monocytes # (Auto) 0.49 K/uL Eosinophils # (Auto) 0.05 K/uL Basophils # (Auto) 0.01 K/uL Micro Results: Item Value Date Time Gram Stain Received 01/21/17 1310 Ulcer Foot Right Pending Gram Stain - Final Resulted 01/20/17 1124 Ulcer Toe Right 4 GRAM STAIN Final 01/21/17-1045 RESULT FEW GRAM POSITIVE COCCI FEW GRAM POSITIVE BACILLI FEW EPITHELIAL CELLS RARE WBCs SEEN SURFACE WOUND CULTURE Preliminary 01/21/17-0844 Organism 1 GROUP B BETA STREP QUANITY MODERATE SENS SENSITIVITY TO FOLLOW Blood Culture - Preliminary Resulted 01/19/17 1820 Blood NO GROWTH TO DATE. Blood Culture - Preliminary Resulted 01/19/17 1810 Blood NO GROWTH TO DATE. Recent Pertinent Medications: Item Value Date Time Piperacillin Sod/ 115 ml @ 28.75 mls/hr 01/20/17 0000 Tazobactam Sod Q8H/IV 01/21/17 0748 3.375 gm/Dextrose Assessment & Plan: 46 yo M admitted with Right diabetic foot infection, initiated on Vancomycin and Zosyn IV. Blood cultures negative to date. Ulcer growing Group B strep. ID following. Vancomycin * This drug level is: X Supratherapeutic. * Change to 1500 mg IV every 12 hours. * Patient's renal function continues to improve, and given nature of infection , I do not want to back off too much with dosing * Patient not at risk for drug accumulation * Goal trough level estimate: ~20 mcg/mL (probable bone infection/gangrene) * A trough level has been ordered for: @0530 prior to 0600 dose. Zosyn * D/C per ID today Pharmacy will continue to follow and will adjust dose/frequency as necessary. Thank you
--- NOTE | 2017-01-21 15:42 | ORTHOPEDIC CONSULTATION ---
DATE: 01/21/2017 The patient was asked to be seen regarding need for amputation of his fourth toe of his right foot. He had the toe debrided by Dr. Burks earlier, is scheduled for discharge in the morning for evaluation at [facility] at 9:00 a.m. for exchange of his nephrostomy tube. After discussion with the patient he is not having anything done at this exact time. Will make recommendations for followup as an outpatient with Dr. Gonzalez for definitive management should this need any further treatment. EDELMIRA
[2017-01-21] MEDS: OLANZAPINE 10 MG TAB PO SCH (20:15)
[2017-01-21] MEDS: ATORVASTATIN 20 MG TAB PO SCH (20:16)
[2017-01-21] MEDS: INSULIN DETEMIR SC SCH (20:20)
[2017-01-22 00:02] VITALS: BP 110/73; PULSE 84; TEMP 36.9; O2SAT 98
[2017-01-22] MEDS ORDERED: VANCOMYCIN INJ 1,500 MG in SODIUM CHLORIDE 0.9% 500ML 500 ML IV SCH (06:00)
[2017-01-22 06:13] LABS: BASO % 0.3 %; BASO ABS # 0.01 K/uL (0-0.2); EOS % 1.1 %; HEMATOCRIT 28.6 % (42-52); IG% 0.8 %; LYMPH % 33.2 %; LYMPH ABS # 1.26 K/uL (1.2-3.4); MEAN CELL VOLUME 81.9 fL (80-100); MEAN CORPUSCULAR HEMOGLOBIN 25.5 pg (25-34); MEAN CORPUSCULAR HGB CONC 31.1 g/dl (32-36); MEAN PLATELET VOLUME 9.2 fL (7.4-10.4); MONO % 10.3 %; NEUT % 54.3 %; PLATELET COUNT 291 K/uL (130-400); RED BLOOD COUNT 3.49 M/uL (4.7-6.1)
[2017-01-22 06:48] LABS: BUN/CREATININE RATIO 9.4 (10-20); CALCIUM 8.8 mg/dl (8.5-10.1); CREATININE 1.1 mg/dl (0.60-1.40); MAGNESIUM 1.6 mg/dl (1.8-2.4); POTASSIUM 4.2 mmol/L (3.5-5.1)
[2017-01-22 07:22] LABS: COMPLETE YES; POLYCHROMASIA 1+
[2017-01-22] MEDS ORDERED: COLLAGENASE OINT 30 GM TUBE EXT SCH (08:00)
[2017-01-22 08:16] VITALS: BP 116/67; PULSE 68; TEMP 36.7; O2SAT 98
[2017-01-22] MEDS: LACTOBACILLUS ACIDOPHILUS (FLORANEX) TAB PO SCH ×2 (09:07→12:34)
[2017-01-22] MEDS: GABAPENTIN 300 MG CAP PO SCH ×2 (09:07→14:56)
[2017-01-22] MEDS: INSULIN ASPART 100 UNITS/ML 3 ML PEN SC SCH ×2 (09:11→12:36)
--- NOTE | 2017-01-22 10:19 | Infectious Disease Progress Nt ---
Progress Note Date of Service Jan 22, 2017. Subjective Pt evaluation today including: conversation w/ patient, physical exam, chart review, lab review, review of studies, review of inpatient medication list WBC count this morning wsa 3.80. Creatinine stable at 1.10. Wound culture continues to grow Group B Strep, and repeat culture pending. Wound images were reviewed this morning. Patient is feeling slightly better this morning, and he needs discharged this afternoon. I spoke to Adrian in [facility]- working on getting IV Dalvance for this patient. All Other Systems: Reviewed and Negative Medications Current Inpatient Medications Medications (Trade) Dose Ordered Sig/Rosie Route Start Time Stop Time Status Last Admin Dose Admin Acetaminophen (Tylenol Tab) 650 mg Q4H PRN PO 01/19/17 19:30 02/18/17 19:29 Zolpidem Tartrate (Ambien Tab) 5 mg HSZ PRN PO 01/19/17 19:30 02/18/17 19:29 Ondansetron HCl (Zofran Inj) 4 mg Q6H PRN IV 01/19/17 19:30 02/18/17 19:29 Insulin Aspart (novoLOG ASPART) SLIDING SCALE If C... ACHS SC 01/19/17 21:00 02/18/17 20:59 01/22/17 09:11 7 UNITS Glucose (Glucose 40% Gel) UD PRN PO 01/19/17 19:30 02/18/17 19:29 Glucose (Glucose Chew Tab) 1 tabs UD PRN PO 01/19/17 19:30 02/18/17 19:29 Dextrose (Dextrose 50% 50ML Syringe) 50 ml UD PRN IV 01/19/17 19:30 02/18/17 19:29 Glucagon (Glucagon Inj) 1 mg UD PRN SQ 01/19/17 19:30 02/18/17 19:29 Atorvastatin Calcium (Lipitor Tab) 20 mg HS PO 01/19/17 21:00 02/18/17 20:59 01/21/17 20:16 20 MG Gabapentin (Neurontin Cap) 300 mg TID PO 01/19/17 21:00 02/18/17 20:59 01/22/17 09:07 300 MG Olanzapine (Zyprexa Tab) 10 mg HS PO 01/19/17 21:00 02/18/17 20:59 01/21/17 20:15 10 MG Ondansetron HCl (Zofran Tab) 8 mg Q8H PRN PO 01/19/17 19:30 02/18/17 19:29 Prochlorperazine Maleate (Compazine Tab) 10 mg Q6H PRN PO 01/19/17 19:30 02/18/17 19:29 Insulin Detemir (Levemir Insulin) 100 units HS SC 01/19/17 21:00 02/18/17 20:59 01/21/17 20:20 100 UNITS Lactobacillus Acidophilus (Floranex Tab) 4 tab TIDM PO 01/20/17 08:00 02/19/17 07:59 01/22/17 09:07 4 TAB Vancomycin HCl (Consult) 1 ea UD PRN N/A 01/19/17 21:00 02/18/17 20:59 Miscellaneous Information (Order Awaiting Action) 1 ea QS N/A 01/20/17 08:00 02/19/17 07:59 Collagenase 1 appln 1 appln DAILY EXT 01/22/17 08:00 02/21/17 07:59 01/22/17 09:08 1 APPLN Vancomycin HCl/ Sodium Chloride (Vancomycin Inj/ Nss 500ml) 530 ml @ 200 mls/hr Q12H IV 01/22/17 06:00 03/05/17 05:59 01/22/17 05:49 200 MLS/HR Objective Vital Signs Date Time Temp Pulse Resp B/P Pulse Ox O2 Delivery O2 Flow Rate FiO2 01/22/17 09:05 Room Air 01/22/17 08:16 36.7 68 18 116/67 98 Room Air 01/22/17 03:37 Room Air 01/22/17 00:02 36.9 84 16 110/73 98 Room Air 01/21/17 18:08 Room Air 01/21/17 15:31 36.5 89 16 110/68 95 01/21/17 11:03 36.2 80 17 103/68 98 Room Air 01/21/17 10:37 105/69 Physical Exam General Appearance: WD/WN, no apparent distress Eyes: normal inspection, sclerae normal ENT: hearing grossly normal Neck: supple, trachea midline Respiratory/Chest: no respiratory distress, no accessory muscle use Cardiovascular: regular rate, rhythm Extremities: normal range of motion Neurologic/Psychiatric: alert, normal mood/affect Skin: normal color, warm/dry, no rash Laboratory Results Item Value Date Time Gram Stain - Final Resulted 01/21/17 1310 Ulcer Foot Right Gram Stain - Final Resulted 01/20/17 1124 Ulcer Toe Right 4 Blood Culture - Preliminary Resulted 01/19/17 1810 Blood NO GROWTH TO DATE. Blood Culture - Preliminary Resulted 01/19/17 1820 Blood NO GROWTH TO DATE. Last 24 Hours Test 01/21/17 11:17 01/21/17 13:16 01/21/17 16:41 01/21/17 19:45 Bedside Glucose 199 mg/dl 304 mg/dl 263 mg/dl Vancomycin Level Trough 24.0 mcg/ml Test 01/22/17 05:37 01/22/17 07:58 White Blood Count 3.80 K/uL Red Blood Count 3.49 M/uL Hemoglobin 8.9 g/dL Hematocrit 28.6 % Mean Corpuscular Volume 81.9 fL Mean Corpuscular Hemoglobin 25.5 pg Mean Corpuscular Hemoglobin Concent 31.1 g/dl Platelet Count 291 K/uL Mean Platelet Volume 9.2 fL Neutrophils (%) (Auto) 54.3 % Lymphocytes (%) (Auto) 33.2 % Monocytes (%) (Auto) 10.3 % Eosinophils (%) (Auto) 1.1 % Basophils (%) (Auto) 0.3 % Neutrophils # (Auto) 2.07 K/uL Lymphocytes # (Auto) 1.26 K/uL Monocytes # (Auto) 0.39 K/uL Eosinophils # (Auto) 0.04 K/uL Basophils # (Auto) 0.01 K/uL RDW Standard Deviation 48.9 fL RDW Coefficient of Variation 16.6 % Immature Granulocyte % (Auto) 0.8 % Immature Granulocyte # (Auto) 0.03 K/uL Polychromasia 1+ Sodium Level 138 mmol/L Potassium Level 4.2 mmol/L Chloride Level 109 mmol/L Carbon Dioxide Level 22 mmol/L Anion Gap 7.0 mmol/L Blood Urea Nitrogen 10 mg/dl Creatinine 1.10 mg/dl Est Creatinine Clear Calc Drug Dose 101.9 ml/min Estimated GFR () 92.2 Estimated GFR (Non- 79.5 BUN/Creatinine Ratio 9.4 Random Glucose 222 mg/dl Calcium Level 8.8 mg/dl Magnesium Level 1.6 mg/dl Bedside Glucose 196 mg/dl Assessment and Plan (1) Diabetic foot ulcer Diabetic male with right 4th toe infection/ulceration, surrounding cellulitis, and probable gangrene. He is currently on IV Vancomycin. Blood cultures showing NGTD. Wound culture growing GBS with sensitivities pending. Patient needs to leave today due to multiple appointments tomorrow as an outpatient. Working on getting IV Dalvance set up for this patient. If we do not hear from Dalvance by the afternoon, recommend discharging the patient on PO Zyvox today, anticipating that we may get IV Dalbavancin as an outpatient. Either way, the patient cannot have a dose of this medication as an inpatient. Addendum (Kalee Galaviz PA-C): Patient approved for IV Dalvance with 100% coverage. He will have a dose on Thursday morning at 8am. The patient is aware. He will be given a dose of IV Daptomycin this afternoon prior to discharge to cover him into tomorrow until he can get his dose of Dalvance. We will F/U as outpatient. Thanks PROVIDER ADDENDUM: Patient reviewed with Ms. Galaviz. Agree with above assessment.
[2017-01-22] MEDS ORDERED: DAPTOmycin IV 600 MG in SODIUM CHLORIDE 0.9% 50ML 50 ML IV ONE (12:00)
[2017-01-22] MEDS ORDERED: SNTO30 EXT (13:33)
--- NOTE | 2017-01-22 13:36 | Discharge Instructions ---
Discharge Instructions Date of Service Jan 22, 2017. Admission Reason for Admission: Diabetic Foot Ulcer Discharge Discharge Diagnosis / Problem: Diabetic foot ulcer, Right foot osteomyelitis Discharge Goals Goal(s): Learn about illness Activity Recommendations Activity Limitations: as noted below Lifting Limitations: none Exercise/Sports Limitations: as tolerated Shower/Bathe: no limitations Driving or Machine Use: no limitations . Instructions / Follow-Up Instructions / Follow-Up Follow up with Infectious diseases for IV antibiotics infusion. Current Hospital Diet Patient's current hospital diet: AHA Diet (Heart Healthy), Diabetes Type 2 Diet Discharge Diet Recommended Diet: Diabetes Type 2 Diet Pending Studies Studies pending at discharge: no Laboratory Results 01/22/17 05:37 Red Blood Count 3.49, Mean Corpuscular Volume 81.9, Mean Corpuscular Hemoglobin 25.5, Mean Corpuscular Hemoglobin Concent 31.1, Mean Platelet Volume 9.2, Neutrophils (%) (Auto) 54.3, Lymphocytes (%) (Auto) 33.2, Monocytes (%) (Auto) 10.3, Eosinophils (%) (Auto) 1.1, Basophils (%) (Auto) 0.3, Neutrophils # (Auto ) 2.07, Lymphocytes # (Auto) 1.26, Monocytes # (Auto) 0.39, Eosinophils # (Auto ) 0.04, Basophils # (Auto) 0.01 01/22/17 05:37 Test 01/19/17 18:10 01/19/17 18:12 01/20/17 06:15 01/21/17 07:35 Beta-Hydroxybutyric Acid 0.92 mg/dL (0.2-2.81) Bedside Lactic Acid Venous 2.93 mmol/L (0.90-1.70) Toxic Granulation 1+ Giant Platelets 1+ Microcytosis PRESENT Total Bilirubin 0.3 mg/dl (0.2-1) Aspartate Amino Transf (AST/SGOT) 10 U/L (15-37) Alanine Aminotransferase (ALT/SGPT) 10 U/L (12-78) Alkaline Phosphatase 58 U/L (45-117) Total Protein 7.6 gm/dl (6.4-8.2) Albumin 2.3 gm/dl (3.4-5.0) Globulin 5.3 gm/dl (2.5-4.0) Albumin/Globulin Ratio 0.4 (0.9-2) Test 01/21/17 13:16 01/22/17 05:37 01/22/17 11:45 Vancomycin Level Trough 24.0 mcg/ml (SEE COMMENT) White Blood Count 3.80 K/uL (4.8-10.8) Red Blood Count 3.49 M/uL (4.7-6.1) Hemoglobin 8.9 g/dL (14.0-18.0) Hematocrit 28.6 % (42-52) Mean Corpuscular Volume 81.9 fL (80-100) Mean Corpuscular Hemoglobin 25.5 pg (25-34) Mean Corpuscular Hemoglobin Concent 31.1 g/dl (32-36) Platelet Count 291 K/uL (130-400) Mean Platelet Volume 9.2 fL (7.4-10.4) Neutrophils (%) (Auto) 54.3 % Lymphocytes (%) (Auto) 33.2 % Monocytes (%) (Auto) 10.3 % Eosinophils (%) (Auto) 1.1 % Basophils (%) (Auto) 0.3 % Neutrophils # (Auto) 2.07 K/uL (1.4-6.5) Lymphocytes # (Auto) 1.26 K/uL (1.2-3.4) Monocytes # (Auto) 0.39 K/uL (0.11-0.59) Eosinophils # (Auto) 0.04 K/uL (0-0.5) Basophils # (Auto) 0.01 K/uL (0-0.2) RDW Standard Deviation 48.9 fL (36.4-46.3) RDW Coefficient of Variation 16.6 % (11.5-14.5) Immature Granulocyte % (Auto) 0.8 % Immature Granulocyte # (Auto) 0.03 K/uL (0.00-0.02) Polychromasia 1+ Anion Gap 7.0 mmol/L (3-11) Est Creatinine Clear Calc Drug Dose 101.9 ml/min Estimated GFR () 92.2 Estimated GFR (Non- 79.5 BUN/Creatinine Ratio 9.4 (10-20) Calcium Level 8.8 mg/dl (8.5-10.1) Magnesium Level 1.6 mg/dl (1.8-2.4) Bedside Glucose 332 mg/dl (70-99) Date/Time Source Procedure Growth Status 01/19/17 18:20 Blood Blood Culture - Preliminary NO GROWTH TO DATE. Resulted 01/21/17 13:10 Ulcer Foot Right Gram Stain - Final Resulted 01/21/17 13:10 Wound Culture - Preliminary Group B Beta Strep Resulted Medical Emergencies . Who to Call and When: Medical Emergencies: If at any time you feel your situation is an emergency, please call 911 immediately. . Non-Emergent Contact Non-Emergency issues call your: Primary Care Provider Call Non-Emergent contact if: wound has increased drainage, wound has increased redness . Past History Medical & Surgical History: (1) Diabetic foot ulcer (2) Colon Cancer (3) Diabetes mellitus . "Provider Documentation" section prepared by Bull Mendoza. VTE Core Measure Inpt VTE Proph given/why not?: Enoxaparin (Lovenox)SQ
--- NOTE | 2017-01-22 13:48 | Discharge Summary ---
Discharge Summary Date of Service Jan 22, 2017. Discharge Summary Admission Date: Jan 19, 2017 at 19:36 Discharge Date: Jan 22, 2017 Discharge Disposition: Home Principal Diagnosis: Osteomyelitis right foot, Diabetic foot ulcer Problems/Secondary Diagnoses: Diabetes mellitus type2 Colon cancer Immunizations: Have You Had Influenza Vaccine: Yes Influenza Vaccine Date: Jul 26, 2013 History of Tetanus Vaccine?: utd History of Pneumococcal: Unknown History of Hepatitis B Vaccine: No Consultations: Infectious disease Medication Reconciliation New Medications: Collagenase (Santyl) 250 Unit/Gm Oin 1 APPLN EXT DAILY for 30 Days, #1 Continued Medications: Atorvastatin (Lipitor) 20 Mg Tab 20 MG PO HS, TAB Gabapentin (Neurontin) 300 Mg Cap 300 MG PO TID, CAP Insulin Detemir (Levemir) 100 Units/Ml Inj 100 UNITS SC HS Insulin Lispro (Humalog) Inj 16 UNITS SC AC, VIAL Olanzapine (Zyprexa) 10 Mg Tab 10 MG PO DAILY, TAB Ondansetron (Ondansetron HCl) 8 Mg Tab 8 MG PO Q8H PRN for Nausea Prochlorperazine Maleate (Compazine) 10 Mg Tab 10 MG PO Q6H PRN for Nausea, TAB Trifluridine-Tipiracil (Lonsurf 20-8.19 mg) 1 Tab Tab 4 TABS PO QAM AND QPM TAKE 4 TABLETS IN THE MORNING AND EVENING FOLLOWING THE REGIMEN BELOW 5 DAYS ON 3 DAYS OFF 5 DAYS ON 28 HOURS OFF Discontinued Medications: Metformin Hcl (Glucophage) 1,000 Mg Tab 1000 MG PO BID, TAB Nitrofurantoin Macrocrystal (Nitrofurantoin) 100 Mg Cap 100 MG PO QPM Discharge Exam Physical Exam: General Appearance: + pertinent finding (HEENT--PERRL, EOMI, mucous membranes and oropharynx dry.) Hospital Course (1) Diabetic foot ulcer Right foot diabetic infection/fourth toe proximal phalanx fracture--patient will be admitted to the medical floor. Who placed on vancomycin IV per renal dosing, and Zosyn 3.375 mg IV every 8 hours. Of note, he does have a portcath that can be accessed for long-term antibiotics. We'll also add Floranex 4 tabs by mouth 4 times a day. Patient was seen by ID and Ortho since bone scan is + for osteo. Blood cultures were negative. Patient is to follow up with ID for OP IV antibiotics, IV [place] Diabetes mellitus--continue Levemir insulin 100 units subcutaneous at bedtime and lispro standing order of 16 units subcutaneous before meals. Hold metformin 1000 mg by mouth twice a day for now. Check Accucheck qac and hs. Hypercholesterolemia--continue atorvastatin 20 mg by mouth at bedtime. Peripheral neuropathy--continue gabapentin 3 mg by mouth 3 times a day. Metastatic colorectal cancer--continue on oral chemotherapy. Of note, the patient does have an appointment at [facility] with oncology in 4 days. Total Time Spent: Greater than 30 minutes This includes examination of the patient, discharge planning, medication reconciliation, and communication with other providers. Discharge Instructions Please refer to the electronic Patient Visit Report (Discharge Instructions) for additional information. Follow-Up PCP Infectious disease Medical Oncology
[2017-01-22 14:54] VITALS: BP 116/67; PULSE 68; TEMP 36.7; O2SAT 98
[2017-01-24] MEDS ORDERED: VANCOMYCIN TROUGH SCH (05:30)
[2017-02-26] MEDS ORDERED: FLUC100T4 PO (08:05)
[2017-02-26] MEDS ORDERED: AMOX875T PO ×2 (08:08→09:35)
[2017-02-26] MEDS ORDERED: HYDR-5688 PO (09:36)
[2017-02-26] MEDS ORDERED: ENOX40IN SQ (09:42)
[2017-03-16] MEDS ORDERED: HALO5TAB PO (14:29)
[2017-03-16] MEDS ORDERED: SULF800T23 PO (14:29)
[2017-04-08] MEDS ORDERED: LEVO-366 PO (09:09)
== END 2017-01-22 16:14 | disposition home or self-care (01) | DRG 623 ==
LOC: ENRESERVDT → ENRESERVTM → C.EDB 15:51 → C.4E 19:36
PROVIDERS: ADMIT Hospitalist; ATTEND Hospitalist
PROC: 0HBMXZZ Excision of Right Foot Skin, External Approach (ICD-10-PCS; principal; 2017-01-21)
DX: E11.69 Type 2 diabetes mellitus with other specified complication (principal); I96 Gangrene, not elsewhere classified; C18.9 Malignant neoplasm of colon, unspecified; M86.8X7 Other osteomyelitis, ankle and foot; L03.115 Cellulitis of right lower limb; S92.511A Displaced fracture of proximal phalanx of right lesser toe(s), initial encounter for closed fracture; E11.621 Type 2 diabetes mellitus with foot ulcer; E11.40 Type 2 diabetes mellitus with diabetic neuropathy, unspecified; E78.00 Pure hypercholesterolemia, unspecified; W22.8XXA Striking against or struck by other objects, initial encounter; Y92.009 Unspecified place in unspecified non-institutional (private) residence as the place of occurrence of the external cause; Z89.411 Acquired absence of right great toe; Z93.3 Colostomy status

== ENCOUNTER → 2017-01-24 | Day surgery (SDC) | payer OTHER ==
[~2017-01-24] VITALS: Ht 193 cm; Wt 105.4 kg
[~2017-01-24] MED LIST changes: +AMOX875T PO; +ATOR-22 PO; +DALBAVANCIN IV 1,500 MG in DEXTROSE 5% 250ML 250 ML IV SCH; +ENOX40IN SQ; +FLUC100T4 PO; +HALO0.5T9 PO; +HALO5TAB PO; +HYDR-5688 PO; -IBUP-1050 PO; +INSU100I SC; -INSUINJ12 SC; +LEVO-366 PO; +LORA-741 PO; +LVMI SC; +MRN5 PO; +NITR1CAP32 PO; +OLAN10TA11 PO; -ONDA8TAB7 PO; +SNTO30 EXT; +SULF800T23 PO; +TRIF0.27 PO; -XLD/500 PO; +ZFR/8 PO
[2017-01-24 08:38] VITALS: Ht 193 cm; Wt 105.4 kg
[2017-01-24 08:40] VITALS: BP 111/71; PULSE 68; TEMP 37.3; O2SAT 97
== END | disposition home or self-care (01) ==
LOC: C.MTU 08:02
PROVIDERS: ATTEND Internal Medicine Infectious Disease
DX: L03.90 Cellulitis, unspecified (principal)

== ENCOUNTER → 2017-02-17 | Outpatient (CLI) | payer OTHER ==
[~2017-02-17] MED LIST changes: -DALBAVANCIN IV 1,500 MG in DEXTROSE 5% 250ML 250 ML IV SCH
== END | disposition home or self-care (01) ==
LOC: C.RDSM 08:00
PROVIDERS: ATTEND Physical Medicine & Rehabilitation Sports Medicine
DX: M86.9 Osteomyelitis, unspecified (principal)

== ENCOUNTER → 2017-02-26 | Day surgery (SDC) | payer OTHER ==
[2017-02-23 13:18] LABS: BASO % 0.4 %; BASO ABS # 0.01 K/uL (0-0.2); EOS % 1.7 %; HEMATOCRIT 36.8 % (42-52); IG% 0.4 %; LYMPH % 39.8 %; LYMPH ABS # 0.92 K/uL (1.2-3.4); MEAN CELL VOLUME 88.5 fL (80-100); MEAN CORPUSCULAR HEMOGLOBIN 28.1 pg (25-34); MEAN CORPUSCULAR HGB CONC 31.8 g/dl (32-36); MEAN PLATELET VOLUME 8.6 fL (7.4-10.4); MONO % 10.4 %; NEUT % 47.3 %; PLATELET COUNT 177 K/uL (130-400); RED BLOOD COUNT 4.16 M/uL (4.7-6.1); WHITE BLOOD COUNT 2.31 K/uL (4.8-10.8)
[2017-02-23 13:22] VITALS: Ht 193 cm; Wt 106.8 kg
[2017-02-23 13:57] LABS: BUN/CREATININE RATIO 17.2 (10-20); CALCIUM 10.2 mg/dl (8.5-10.1); CREATININE 1.1 mg/dl (0.60-1.40); POTASSIUM 4.5 mmol/L (3.5-5.1)
[2017-02-23 14:05] LABS: ANISOCYTOSIS PRESENT; COMPLETE YES; TEAR DROP CELLS 1+
[~2017-02-26] VITALS: Ht 193 cm; Wt 106.8 kg
[~2017-02-26] MED LIST changes: +ATROPINE SULFATE 0.1 MG/ML 5ML SYR IV PRN; +BUPIVACAINE 0.5 % 5 MG/1 ML MPF 30ML VIAL ONE; +BUPIVACAINE/EPINEPHRINE 0.25% 1:200,000 30 ML VIAL ONE; +CEFAZOLIN 2000 MG/60 ML D5W IV SCH; +DEXAMETHASONE SOD INJ 4 MG/ML VIAL IV PRN; +EpHEDrine SULFATE INJ 50 MG/ML AMP IV PRN; +FENTANYL CITRATE INJ 50 MCG/1 ML 2 ML VIAL IV PRN; +FENTANYL CITRATE INJ 50 MCG/1 ML 2 ML VIAL ONE; +KETOROLAC TROMETHAMINE 30 MG/ML VIAL IV. PRN; +LABETALOL HCL IV 5 MG/ML 20ML IV PRN; +LACTATED RINGER'S 1000ML 1,000 ML IV SCH; +LIDOCAINE HCL 1% 20 ML VIAL ONE; +LIDOCAINE HCL 2% 2 ML VIAL (20MG/ML) ONE; +METOCLOPRAMIDE HCL INJ 5 MG/ML 2 ML VIAL IV PRN; +MIDAZOLAM HCL 1 MG/ML 2ML VIAL ONE; +MoRPHine SULFATE 10 MG/ML CARP/VIAL IV PRN; +ONDANSETRON INJ 2 MG/ML 2 ML VIAL IV PRN; +ONDANSETRON INJ 2 MG/ML 2 ML VIAL ONE; +OXYCODONE/ACETAMINOPHEN 5-325 TAB PO PRN; +PHENYLEPHRINE 100MCG/ML 5ML SYR IV PRN; +POVIDONE-IODINE OP SOLN 30 ML BTL ONE; +PROPOFOL IV EMULSION 10 MG/ML 20 ML VIAL IV ONE; +ROPIVACAINE 0.5% 5 MG/ML 30 ML VIAL ONE; -SNTO30 EXT; +SODIUM CHLORIDE 0.9% 1000ML 1,000 ML IV SCH
--- NOTE | 2017-02-26 08:10 | History & Physical Bridge Note ---
H&P Re-Evaluation Bridge Note: I have examined the patient, reviewed the History & Physical and in the interval since the performance of the History & Physical I have noted the following changes of clinical significance: No changes noted
[2017-02-26 09:33] VITALS: BP 108/74; PULSE 81; TEMP 36.5; O2SAT 98
--- NOTE | 2017-02-26 09:38 | [facility] Post Operative Brief Note ---
Immediate Operative Summary Operative Date February 26, 2017. Pre-Operative Diagnosis Right 4th Toe Osteomyelitis Post-Operative Diagnosis Same Procedure(s) Performed Right 4th Toe Amputation Surgeon Dr. Cordova Coffee Supervisor Surgeon(s) Michael Frye PA-C Estimated Blood Loss 10 ML Findings open wound, deficient bone Specimens A. Right 4th Toe 1. Right 4th Toe for culture (bladimir, aero, gram stain) Drains 0 Anesthesia local with UV sedation Complication(s) None Disposition Recovery Room / PACU
--- NOTE | 2017-02-26 09:41 | Discharge Instructions-SurgCtr ---
Discharge Instructions Date of Service February 26, 2017. Visit Reason for Visit: Right 4TH Toe Osteomyelitis Discharge Discharge Diagnosis / Problem: right 4th toe osteomyelitis Discharge Goals Goal(s): Decrease discomfort, Improve function, Increase independence Medications Stopped Medications Name(s): metformin, last dose 02/23/17 Activity Recommendations Activity Limitations: per Instructions/Follow-up section Anesthesia . Post Anesthesia Instructions: If you have had General Anesthesia or IV Sedation: * Do not drive today. * Resume driving when surgeon permits. * Do not make important decisions or sign legal documents today. * Call surgeon for: 1. Temperature elevations greater than 101 degrees F. 2. Uncontrollable pain. 3. Excessive bleeding. 4. Persistent nausea and vomiting. 5. Medication intolerance (nausea, vomiting or rash). * For nausea and vomiting use only clear liquids such as: tea, soda, bouillon until nausea subsides, then gradually increase diet as tolerated. * If you have any concerns or questions, call your surgeon's office. If physician is unavailable and it is an emergency, call 911 or go to the nearest emergency room. . Instructions / Follow-Up Instructions / Follow-Up DIET: * Resume previous diet. MEDICATIONS: * Please take your prescriptions as instructed at your pre-op appointment and/ or see medication discharge instructions listed above. * Start Lovenox tonight at 10 p.m. Take daily at 10 p.m. x 1 week. * If concerns develop, call your physician's office at . SPECIAL CARE INSTRUCTIONS: * Ice to right foot as needed for pain/swelling. * Elevate right foot as needed for pain/swelling. * Keep dressing clean, dry, intact. You may remove dressing in 4 days after surgery. * You may weight bear on right foot as tolerated with boot on. * After dressings removed on day 4 you may shower and redress foot with new dressings. Keep covered. * Use walker or crutches as needed for assistance with walking. * Your surgical extremity may be discolored due to prepping agents used on the skin. A bluish-green tint is a normal variant and should not cause alarm. Call your doctor at [phone] if: * Temperature above 101 degrees * Pain not relieved by pain medicine ordered * There is increased drainage or redness from any incision * You have any unanswered questions, problems or concerns. FOLLOW UP VISIT: * If not already scheduled, please call the office at to schedule a follow-up appointment. * You have a follow up appointment on Thursday03/02/17 with Kaycee Frye PA-C at 10:15 a.m. * You have a follow up appointment with Dr. Cordova on at 2:15 p.m. Diet Recommendations Home Diet: no limitations, resume previous diet Procedures Procedures Performed: Right 4th Toe Amputation Pending Studies Studies pending at discharge: no Medical Emergencies . Who to Call and When: Medical Emergencies: If at any time you feel your situation is an emergency, please call 911 immediately. . Non-Emergent Contact Non-Emergency issues call your: Surgeon Call Non-Emergent contact if: temperature is above 101, your pain is not controlled, your pain is concerning you, wound has increased drainage, wound has increased redness, you have any medication questions . . "Provider Documentation" section prepared by Kaycee Frye. . [place] Drug Monitoring Program Search Results: patient reviewed within database, no issues identified
--- NOTE | 2017-02-26 09:47 | [facility] Operative Report ---
Operative Report Operative Date February 26, 2017. Pre-Operative Diagnosis Right 4th Toe Osteomyelitis Post-Operative Diagnosis Right 4th toe osteomyelitis Procedure(s) Performed Amputation right 4th toe Surgeon Dr. Cordova Senior Net Programmer Surgeon(s) Kaycee Frye PA-C Estimated Blood Loss 10 ML Findings Osteomyelitis right 4th toe Specimens A. Right 4th Toe 1. Right 4th Toe for culture (bladimir, aero, gram stain) Drains 0 Anesthesia local with UV sedation Complication(s) None Disposition Recovery Room / PACU (stable) Indications Patient is a 46 year old male who injured his right 4th toe approximately 6 weeks ago. At the time of his injury he did have a laceration. He did not seek treatment. The wound became infected. He was treated and it continue to be swollen and he developed a non healing wound. He was seen and treated at [facility]. He had a bone scan that was consistent with osteomyelitis. He was referred to Dr. Cordova, surgery was recommended. Risks/complications discussed, informed consent obtained. Description of Procedure Patinet was taken to the operating room, given IV sedation with local block. Time out performed, prepped and draped in routine sterile fashion. He was given 2gm IV Ancef for surgical prophylaxis. I was present the entire case, please see Dr. Cordova's operative report for further detail. Patient was taken to the recovery room in stable condition. I attest to the content of the Intraoperative Record and any orders documented therein. Any exceptions are noted below.
--- NOTE | 2017-02-26 10:26 | OPERATIVE REPORT ---
DATE OF OPERATION: 02/26/2017 PREOPERATIVE DIAGNOSIS: Right foot fourth toe osteomyelitis. POSTOPERATIVE DIAGNOSIS: Same. PROCEDURE: Amputation of right foot fourth toe through the metatarsophalangeal joint. SURGEON: Dr. Luiz Cordova. CREDIT ADJUSTER: Kaycee Frye. No resident or fellow available. ANESTHESIA: Local with sedation. INDICATIONS FOR THE PROCEDURE: The patient is a 46-year-old male with colon cancer, on chemotherapy, who is also a severe diabetic. He has had a history of blood clots as well. He has a multiple-week history of an infection involving his right fourth toe. This has been treated in the wound clinic. The injury occurred due to a trauma. He likely had an open wound and developed osteomyelitis. Bone had been removed from the toe in the office. He now has radiographic evidence of bone destruction of the proximal phalanx. There was an open wound medially and laterally on the toe. He is status post a great toe resection through the MTP joint with good results. He has been off his chemotherapy for the past 2 weeks. His white blood cell count is noted. He will be back on chemotherapy in 2 weeks, which should give him adequate time for early healing. He continued to be on antibiotics and was seen in the wound clinic as well as infectious diseases. Treatment options, risks and benefits were discussed. He elected to proceed with surgery. PROCEDURE IN DETAIL: Informed consent was obtained. The patient was identified as Edmund Rose. He identified the operative site as the right foot fourth toe. I marked it with my initials. A preop surgical timeout was performed. He received a preoperative dose of IV antibiotics. He was taken to the operating room and positioned supine on the OR table. A bump was placed under the right hip. A tourniquet applied to the right calf distal to the fibular neck. The foot was then prepped and draped in the usual sterile fashion with Betadine. DVT prophylaxis intraoperatively with foot pumps, postoperatively with early mobility and he will start on Lovenox 40 mg subQ 12-15 hours postoperatively. The foot was injected for digital block using 1% lidocaine and 0.5% Marcaine, both without epinephrine. Intravenous sedation was administered. The toe was floppy. There was a 1 x 1.5 cm open wound with granulation tissue on the medial side of the fourth toe. There was also a 3 x 4 mm ulceration directly opposite to that on the lateral side of the toe. The limb was exsanguinated with gravity and tourniquet was inflated to 225 mmHg. It was let down after approximately 25 minutes of inflation prior to wound closure. There was good pink discoloration of the tissue; however, there was not robust bleeding. He did have a palpable pedal pulse preoperatively. I made a longitudinal incision, intersecting the lateral portion of the medial ulcer. This was extended distally and the nail plate was removed along with the nail bed and the germinal matrix and the entire distal phalanx in a Syme type amputation. Additionally, prior to that, I debrided the ulceration and took a culture, Gram stain, aerobic and anaerobic. Tissue removed and body was sent for pathological specimen. His preoperative cultures had grown out multiple organisms. I then identified the metatarsal head and performed an en bloc resection of the remnant of the proximal and middle phalanx and an extracapsular dissection using a knife. The flexor and extensor tendons were cut proximally and allowed to retract and the resected bone was sent for specimen. The metatarsal head showed intact cartilage with no softened bone. I did not note any purulence. There was a lot of granulation tissue around the area of the open wound. Both areas were thoroughly debrided with a rongeur. Irrigation was performed with Betadine lavage for 3-5 minutes followed by bulb syringe sterile saline irrigation at the end of case. The tourniquet was let down. Sharp excisional debridement was performed. The rongeur and scalpel were also utilized along with the tenotomy scissors. I did not feel any remaining pieces of bone. The surrounding tissue remained healthy, although not bleeding robustly and did have a pinkish discoloration to it. I then closed the dorsal proximal incision side to side with 3-0 nylon horizontal mattress stitches. I then had to resect laterally through the proximal margin of the lateral ulcer. I then was able to fashion a plantar medial flap, which did then joined over to the lateral wound for a complete wound closure. I carefully resected the extra skin as necessary to ensure proper closure without tension. This was closed with interrupted 3-0 nylon sutures and several places were left as gap for drainage to occur. Bleeding was well controlled. The resected tissue was sent for specimen. Cultures were obtained. Counts were correct at the end of the case. Blood loss was approximately 10 mL. At the conclusion of the operation, I spoke to the patient's family and informed them of my findings. Postoperative instructions were given. The patient was awakened from anesthesia without difficulty and taken to recovery room in stable condition. A soft sterile dressing was applied. Xeroform, 4 x 4's, Kerlix and an Ari wrap loose fitted. He was then applied into his clean fracture boot. He can weightbear as tolerated on his heel. He will continue to elevate. Continue antibiotics and start Lovenox as discussed earlier. He will be in the clinic for followup evaluation and wound check in 3-4 days. The distal phalanx appeared relatively normal up to the metatarsal head. Intervening bone was either destroyed or soft like the base of the proximal phalanx, which could not be saved due to the level of the infection. I attest to the content of the Intraoperative Record and any orders documented therein. Any exceptions are noted below. [employer]
--- NOTE | 2017-02-26 10:31 | Anesthesia Progress Nt - [facility] ---
Anesthesia Post Op Note Date & Time February 26, 2017 at 10:31 Vital Signs Pain Intensity: 0 Vital Signs Past 12 Hours Date Time Temp Pulse Resp B/P Pulse Ox O2 Delivery O2 Flow Rate FiO2 02/26/17 09:33 36.5 81 16 108/74 98 Room Air 02/26/17 07:44 36.7 92 16 136/92 98 Room Air Notes Mental Status: alert / awake / arousable, participated in evaluation Pt Amnestic to Procedure: Yes Nausea / Vomiting: adequately controlled Pain: adequately controlled Airway Patency, RR, SpO2: stable & adequate BP & HR: stable & adequate Hydration State: stable & adequate Anesthetic Complications: no major complications apparent
== END | disposition home or self-care (01) ==
LOC: X.SURG 07:32
PROVIDERS: ATTEND Physical Medicine & Rehabilitation Sports Medicine
DX: M86.171 Other acute osteomyelitis, right ankle and foot (principal); M86.471 Chronic osteomyelitis with draining sinus, right ankle and foot; E08.69 Diabetes mellitus due to underlying condition with other specified complication; Z86.718 Personal history of other venous thrombosis and embolism; C20 Malignant neoplasm of rectum; Z79.899 Other long term (current) drug therapy; Z79.4 Long term (current) use of insulin; E66.9 Obesity, unspecified

== ENCOUNTER → 2017-03-04 | Outpatient (CLI) | payer OTHER ==
[~2017-03-04] MED LIST changes: -ATROPINE SULFATE 0.1 MG/ML 5ML SYR IV PRN; -BUPIVACAINE 0.5 % 5 MG/1 ML MPF 30ML VIAL ONE; -BUPIVACAINE/EPINEPHRINE 0.25% 1:200,000 30 ML VIAL ONE; -CEFAZOLIN 2000 MG/60 ML D5W IV SCH; -DEXAMETHASONE SOD INJ 4 MG/ML VIAL IV PRN; -EpHEDrine SULFATE INJ 50 MG/ML AMP IV PRN; -FENTANYL CITRATE INJ 50 MCG/1 ML 2 ML VIAL IV PRN; -FENTANYL CITRATE INJ 50 MCG/1 ML 2 ML VIAL ONE; -KETOROLAC TROMETHAMINE 30 MG/ML VIAL IV. PRN; -LABETALOL HCL IV 5 MG/ML 20ML IV PRN; -LACTATED RINGER'S 1000ML 1,000 ML IV SCH; -LIDOCAINE HCL 1% 20 ML VIAL ONE; -LIDOCAINE HCL 2% 2 ML VIAL (20MG/ML) ONE; -METOCLOPRAMIDE HCL INJ 5 MG/ML 2 ML VIAL IV PRN; -MIDAZOLAM HCL 1 MG/ML 2ML VIAL ONE; -MoRPHine SULFATE 10 MG/ML CARP/VIAL IV PRN; -ONDANSETRON INJ 2 MG/ML 2 ML VIAL IV PRN; -ONDANSETRON INJ 2 MG/ML 2 ML VIAL ONE; -OXYCODONE/ACETAMINOPHEN 5-325 TAB PO PRN; -PHENYLEPHRINE 100MCG/ML 5ML SYR IV PRN; -POVIDONE-IODINE OP SOLN 30 ML BTL ONE; -PROPOFOL IV EMULSION 10 MG/ML 20 ML VIAL IV ONE; -ROPIVACAINE 0.5% 5 MG/ML 30 ML VIAL ONE; -SODIUM CHLORIDE 0.9% 1000ML 1,000 ML IV SCH
[2017-03-04 15:38] LABS: BASO % 0.2 %; BASO ABS # 0.01 K/uL (0-0.2); COMPLETE YES; EOS % 0.4 %; HEMATOCRIT 38.6 % (42-52); IG% 0.2 %; LYMPH % 15.2 %; LYMPH ABS # 0.73 K/uL (1.2-3.4); MEAN CELL VOLUME 88.1 fL (80-100); MEAN CORPUSCULAR HEMOGLOBIN 27.6 pg (25-34); MEAN CORPUSCULAR HGB CONC 31.3 g/dl (32-36); MEAN PLATELET VOLUME 9.9 fL (7.4-10.4); MONO % 12.7 %; NEUT % 71.3 %; PLATELET COUNT 203 K/uL (130-400); RED BLOOD COUNT 4.38 M/uL (4.7-6.1); WHITE BLOOD COUNT 4.81 K/uL (4.8-10.8)
[2017-03-04 16:12] LABS: ALT/SGPT 15 U/L (12-78); AST/SGOT 8 U/L (15-37); BLOOD UREA NITROGEN 25 mg/dl (7-18); BUN/CREATININE RATIO 15.9 (10-20); CALCIUM 9.6 mg/dl (8.5-10.1); CARBON DIOXIDE 27 mmol/L (21-32); CHLORIDE 100 mmol/L (98-107); GLUCOSE 333 mg/dl (70-99); POTASSIUM 5.3 mmol/L (3.5-5.1); SODIUM 133 mmol/L (136-145)
[2017-03-04 16:15] LABS: ALB/GLOB RATIO 0.7 (0.9-2); ALKALINE PHOSPHATASE 85 U/L (45-117)
[2017-03-04 16:22] LABS: BETA-HYDROXYBUTYRATE 1.12 mg/dL (0.2-2.81)
== END | disposition home or self-care (01) ==
LOC: C.LAB1850 14:39
PROVIDERS: ATTEND Physician Assistant
DX: E11.21 Type 2 diabetes mellitus with diabetic nephropathy (principal); L03.115 Cellulitis of right lower limb; A49.8 Other bacterial infections of unspecified site

== ENCOUNTER → 2017-03-18 | Outpatient (CLI) | payer OTHER ==
[~2017-03-18] MED LIST changes: -AMOX875T PO; -ENOX40IN SQ; -FLUC100T4 PO
[2017-03-18 15:42] LABS: BASO % 0.5 %; BASO ABS # 0.03 K/uL (0-0.2); COMPLETE YES; EOS % 1.4 %; HEMATOCRIT 37.2 % (42-52); IG% 0.5 %; LYMPH % 20.3 %; LYMPH ABS # 1.29 K/uL (1.2-3.4); MEAN CORPUSCULAR HEMOGLOBIN 27.3 pg (25-34); MEAN CORPUSCULAR HGB CONC 32.5 g/dl (32-36); MEAN PLATELET VOLUME 9.5 fL (7.4-10.4); MONO % 7.9 %; NEUT % 69.4 %; PLATELET COUNT 252 K/uL (130-400); RED BLOOD COUNT 4.43 M/uL (4.7-6.1); WHITE BLOOD COUNT 6.34 K/uL (4.8-10.8)
[2017-03-18 16:05] LABS: AST/SGOT 9 U/L (15-37); BLOOD UREA NITROGEN 31 mg/dl (7-18); BUN/CREATININE RATIO 19.2 (10-20); CALCIUM 9.4 mg/dl (8.5-10.1); CARBON DIOXIDE 20 mmol/L (21-32); CHLORIDE 111 mmol/L (98-107); GLUCOSE 205 mg/dl (70-99); POTASSIUM 5.4 mmol/L (3.5-5.1); SODIUM 139 mmol/L (136-145)
[2017-03-18 16:12] LABS: ALB/GLOB RATIO 0.8 (0.9-2); ALKALINE PHOSPHATASE 95 U/L (45-117); ALT/SGPT 13 U/L (12-78)
== END | disposition home or self-care (01) ==
LOC: C.LAB1850 14:27
PROVIDERS: ATTEND Physician Assistant
DX: E11.21 Type 2 diabetes mellitus with diabetic nephropathy (principal); L03.115 Cellulitis of right lower limb

== ENCOUNTER → 2017-04-01 | Outpatient (CLI) | payer OTHER ==
[2017-04-01 15:02] LABS: BASO % 0.3 %; BASO ABS # 0.01 K/uL (0-0.2); COMPLETE YES; EOS % 1.5 %; HEMATOCRIT 32.4 % (42-52); IG% 0.6 %; LYMPH % 29.7 %; LYMPH ABS # 0.99 K/uL (1.2-3.4); MEAN CELL VOLUME 83.1 fL (80-100); MEAN CORPUSCULAR HEMOGLOBIN 27.7 pg (25-34); MEAN CORPUSCULAR HGB CONC 33.3 g/dl (32-36); MEAN PLATELET VOLUME 8.8 fL (7.4-10.4); MONO % 3.9 %; PLATELET COUNT 174 K/uL (130-400); WHITE BLOOD COUNT 3.33 K/uL (4.8-10.8)
[2017-04-01 15:40] LABS: ALB/GLOB RATIO 0.9 (0.9-2); ALKALINE PHOSPHATASE 108 U/L (45-117); ALT/SGPT 19 U/L (12-78); AST/SGOT 15 U/L (15-37); BLOOD UREA NITROGEN 26 mg/dl (7-18); BUN/CREATININE RATIO 18.3 (10-20); C-REACTIVE PROTEIN 1.01 mg/dl (0-0.29); CALCIUM 9.1 mg/dl (8.5-10.1); CARBON DIOXIDE 22 mmol/L (21-32); CHLORIDE 104 mmol/L (98-107); POTASSIUM 4.7 mmol/L (3.5-5.1); SODIUM 135 mmol/L (136-145)
[2017-04-01 15:46] LABS: GLUCOSE 350 mg/dl (70-99)
[2017-04-01 15:50] LABS: BETA-HYDROXYBUTYRATE 1.04 mg/dL (0.2-2.81)
== END | disposition home or self-care (01) ==
LOC: C.LAB1850 14:10
PROVIDERS: ATTEND Physician Assistant
DX: E11.9 Type 2 diabetes mellitus without complications (principal); S90.829A Blister (nonthermal), unspecified foot, initial encounter; X58.XXXA Exposure to other specified factors, initial encounter; L03.115 Cellulitis of right lower limb

== ENCOUNTER → 2017-05-20 | Outpatient (CLI) | payer OTHER ==
[~2017-05-20] MED LIST changes: -HALO0.5T9 PO; -INSU100I SC; -LORA-741 PO; -METF-384 PO; -MRN5 PO; -NITR1CAP32 PO; -SULF800T23 PO; -TRIF0.27 PO
--- NOTE | 2017-05-20 10:58 | DIAGNOSTIC IMAGING REPORT ---
PET/CT SKULL-THIGH HISTORY: Colorectal carcinoma COLORECTAL CANCER TECHNIQUE: PET/CT was performed from the base of the skull through the pelvis following the intravenous administration of 15.4 mCi of F18-FDG. Non-contrast CT imaging was performed over the same range without breath-hold for attenuation correction of PET images and anatomic correlation, but not for primary interpretation as it is not of standard diagnostic quality. CT DOSE: COMPARISON: 05/19/2016. 10/21/2016 FINDINGS: HEAD AND NECK: Thyroid goiter remains unchanged. No metabolically active floresita pathology. CHEST: No metabolically active floresita pathology within the mediastinal or hilar region. Mildly progressive pulmonary nodularity. There is 7 mm interval nodule left pulmonary apex. There is a stable 4 mm nodular density left upper lobe. There is an enlarging 4 mm nodular density adjacent to the left major fissure. There is a new 5 mm nodular density left lower lobe posteriorly. There is a 5 mm nodular density posterior right lower lobe. There is an enlarging 4 mm nodule left lung base moderately increased in volume from the prior study. There is 9 mm nodular density right lower lobe increased in volume from the prior exam. There is interval increased metabolic activity of the left superior segment nodule with an SUV of 2.9 a posterior right lower lobe nodule demonstrates SUVs of 2.1 there is an infrahilar nodule on the right with an SUV of 1.9 pulmonary nodule slightly progressive compared to the prior CT study ABDOMEN/PELVIS: Enlarging right adrenal mass. Current dimensions are 5 cm at maximum. Patient be characteristics are intense at 15.1-2.5 cm focus peripheral right hepatic lobe unchanged. No abnormal metabolic activity characteristics. Unchanging left ureteral stent. Mild bilateral hydronephrosis stable. Interval small inguinal left inguinal nodule measuring SUVs of 7.9. Stable postoperative activity of the low pelvic region. MUSCULOSKELETAL: Minimal low-grade increased metabolic activity of the thoracolumbar spine unchanged. IMPRESSION: 1. Findings consistent with mildly progressive pulmonary metastatic disease. This has this has progressed slightly compared to the patient's prior CT study dated 10/21/2016. 2. Progressive right adrenal metastatic deposit. This is shown only slightly progressive change compared to the prior study of 10/21/2016 3. No current evidence for metabolically active abdominal or pelvic nodular pathology The above report was generated using voice recognition software. It may contain grammatical, syntax or spelling errors. Electronically signed by: Edmund Iniguez M.D. 05/20/2017 10:57 AM Dictated Date/Time: 05/20/2017 10:30 AM
== END | disposition home or self-care (01) ==
LOC: C.PET 07:56
PROVIDERS: ATTEND Internal Medicine Hematology & Oncology
DX: C20 Malignant neoplasm of rectum (principal)

== ENCOUNTER 2017-09-09 14:40 | Inpatient (IN) | payer OTHER ==
[~2017-09-09] VITALS: Ht 193 cm; Wt 97.1 kg
[~2017-09-09 14:40] MED LIST changes: -HYDR-5688 PO
[2017-09-09] MEDS ORDERED: SODIUM CHLORIDE 0.9% 1000ML 1,000 ML IV STA ×2 (15:10→16:27)
--- NOTE | 2017-09-09 15:27 | EMERGENCY ROOM VISIT NOTE ---
History First contact with patient: 14:56 Chief Complaint: URINARY SYMPTOMS Stated Complaint: UTI Nursing Triage Summary: Pt has nephrostomy tube that is to be changed in [place] tomorrow, was last changed 10 weeks ago. Pt c/o fatigue, chills, n/v since Thursday. History of Present Illness The patient is a 46 year old male who presents to the Emergency Room with complaints of "symptoms of a urinary tract infection" for the past 4 days. Symptoms include fatigue and generalized weakness, feeling dehydrated, body aches and chills, he reports that his urine has been dark and foul-smelling, and has had decreased output. He has had a lot of nausea and vomiting for the past few days, and states he has barely been keeping anything down because of this, however he does note this is better today and he has been keeping down sips of water. He states "I've had lots of urinary tract infections, this is how I feel every time." Patient has a history of stage IV rectal cancer, resulting in ileostomy and urostomy. He also states that he has a nephrostomy tube that comes out through his urostomy which is scheduled to be changed at [facility] tomorrow, he states this is changed every 10 weeks. He states that he is taking an oral chemotherapy drug to treat his cancer. He also notes that he is a diabetic, takes Humalog and Levemir insulin. He states he has not checked his sugars for the past few days due to feeling so poorly. He denies any headaches, neck pain, chest pain, shortness of breath, cough or congestion, sore throat, abdominal pain, diarrhea or blood in the stool, rash. Review of Systems A complete 10 point review of systems was reviewed with the patient with pertinent positives and negatives as per history of present illness. All else were negative. Past Medical/Surgical History Medical Problems: (1) Colon Cancer (2) Colostomy (3) Complicated UTI (urinary tract infection) (4) Diabetes mellitus (5) Diabetic foot ulcer (6) Diabetic foot ulcer associated with type 1 diabetes mellitus (7) Diabetic peripheral neuropathy associated with type 1 diabetes mellitus (8) Loss of sensation (9) Necrotizing fasciitis (10) Rectal adenocarcinoma (11) Status post partial amputation of foot Family History No significant family history Social History Smoking Status: Never Smoker Alcohol Use: occasionally Drug Use: none Marital Status: single Housing Status: lives with family Occupation Status: employed Current/Historical Medications Scheduled Atorvastatin (Lipitor), 20 MG PO HS Dronabinol (Marinol), 5 MG PO BID Gabapentin (Neurontin), 300 MG PO TID Insulin Detemir (Levemir), 100 UNITS SC HS Insulin Lispro (Human) (Humalog), 16 SC AC Metformin Hcl (Glucophage), 1,000 MG PO BID Nitrofurantoin Macrocrystals (Macrodantin), 100 MG PO DAILY Olanzapine (Zyprexa), 10 MG PO DAILY Trifluridine-Tipiracil (Lonsurf 20-8.19 mg), 1 DOSE PO UD Scheduled PRN Haloperidol (Haldol), 0.5 MG PO DAILY PRN for Nausea Lorazepam (Ativan), 0.5 MG PO DAILY PRN for Anxiety Ondansetron (Ondansetron HCl), 8 MG PO Q8H PRN for Nausea Prochlorperazine Maleate (Compazine), 10 MG PO Q6H PRN for Nausea Physical Exam Vital Signs Date Time Temp Pulse Resp B/P (MAP) Pulse Ox O2 Delivery O2 Flow Rate FiO2 09/09/17 17:41 112 20 114/75 96 Room Air 09/09/17 17:05 103 22 109/67 97 Room Air 09/09/17 16:40 36.9 09/09/17 16:14 109 09/09/17 14:42 92 18 123/81 98 Room Air Physical Exam CONSTITUTIONAL: No acute distress, nontoxic appearing. Moderately dehydrated, but otherwise well appearing and well nourished. Alert and oriented X 4 with normal affect. HEENT: Normocephalic, atraumatic. Pupils equal, round and reactive to light, EOMI. TMs normal. Pharynx normal. Dry mucous membranes. NECK: Supple, full active range of motion without discomfort. RESPIRATORY: Clear to auscultation bilaterally with no wheezing, crackles, rhonchi or stridor. Equal expansion bilaterally. CARDIOVASCULAR: Regular rate and rhythm with no murmurs, rubs or gallops. Normal peripheral perfusion. No edema. GASTROINTESTINAL: Soft, nontender, nondistended. Bowel sounds present in all quadrants. Ileostomy stoma with normal output, no erythema, tenderness, or purulent discharge. Urostomy with nephrostomy tube, no erythema, tenderness, or purulent discharge from the site. Dark cloudy urine noted in the collection bag. No CVA tenderness bilaterally. MUSCULOSKELETAL: Full range of motion of all joints without discomfort. INTEGUMENTARY: No rash or other significant dermatologic conditions noted. NEUROLOGIC: Cranial nerves II-XII grossly intact. No focal neurologic deficits noted. Medical Decision & Procedures ER Provider Diagnostic Interpretation: CHEST ONE VIEW PORTABLE CLINICAL HISTORY: 46 years-old Male presenting with Evaluate Fever/Sepsis. TECHNIQUE: Portable upright AP view of the chest was obtained. COMPARISON: 02/20/[address] from 10/21/2016. FINDINGS: Left subclavian Mediport terminates in the upper SVC. Cardiac mediastinal silhouette normal. Lungs and pleural spaces clear. Osseous structures normal. Upper abdomen normal. IMPRESSION: 1. No acute cardiopulmonary disease. Laboratory Results 09/09/17 15:28 Red Blood Count 3.92, Mean Corpuscular Volume 83.2, Mean Corpuscular Hemoglobin 27.0, Mean Corpuscular Hemoglobin Concent 32.5, Mean Platelet Volume 9.1, Neutrophils (%) (Auto) 91.4, Lymphocytes (%) (Auto) 4.2, Monocytes (%) (Auto) 3.6, Eosinophils (%) (Auto) 0.2, Basophils (%) (Auto) 0.2, Neutrophils # (Auto) 8.21, Lymphocytes # (Auto) 0.38, Monocytes # (Auto) 0.32, Eosinophils # (Auto) 0.02, Basophils # (Auto) 0.02 09/09/17 15:28 Test 09/09/17 15:28 09/09/17 15:35 09/09/17 18:19 White Blood Count 8.99 K/uL (4.8-10.8) Red Blood Count 3.92 M/uL (4.7-6.1) Hemoglobin 10.6 g/dL (14.0-18.0) Hematocrit 32.6 % (42-52) Mean Corpuscular Volume 83.2 fL (80-100) Mean Corpuscular Hemoglobin 27.0 pg (25-34) Mean Corpuscular Hemoglobin Concent 32.5 g/dl (32-36) Platelet Count 235 K/uL (130-400) Mean Platelet Volume 9.1 fL (7.4-10.4) Neutrophils (%) (Auto) 91.4 % Lymphocytes (%) (Auto) 4.2 % Monocytes (%) (Auto) 3.6 % Eosinophils (%) (Auto) 0.2 % Basophils (%) (Auto) 0.2 % Neutrophils # (Auto) 8.21 K/uL (1.4-6.5) Lymphocytes # (Auto) 0.38 K/uL (1.2-3.4) Monocytes # (Auto) 0.32 K/uL (0.11-0.59) Eosinophils # (Auto) 0.02 K/uL (0-0.5) Basophils # (Auto) 0.02 K/uL (0-0.2) RDW Standard Deviation 47.9 fL (36.4-46.3) RDW Coefficient of Variation 15.8 % (11.5-14.5) Immature Granulocyte % (Auto) 0.4 % Immature Granulocyte # (Auto) 0.04 K/uL (0.00-0.02) Nucleated RBC Absolute Count (auto) 0.02 K/uL (0-0) Nucleated Red Blood Cells % 0.3 % Hypersegmented Polys 1+ Toxic Vacuolation OCCASIONAL Dohle Bodies OCCASIONAL Anion Gap 14.0 mmol/L (3-11) Est Creatinine Clear Calc Drug Dose 54.9 ml/min Estimated GFR () 43.7 Estimated GFR (Non- 37.7 BUN/Creatinine Ratio 27.3 (10-20) Calcium Level 10.1 mg/dl (8.5-10.1) Total Bilirubin 1.2 mg/dl (0.2-1) Direct Bilirubin 0.3 mg/dl (0-0.2) Aspartate Amino Transf (AST/SGOT) 6 U/L (15-37) Alanine Aminotransferase (ALT/SGPT) 8 U/L (12-78) Alkaline Phosphatase 100 U/L (45-117) Total Protein 9.7 gm/dl (6.4-8.2) Albumin 3.1 gm/dl (3.4-5.0) Beta-Hydroxybutyric Acid 13.82 mg/dL (0.2-2.81) Urine Color DK YELLOW Urine Appearance CLOUDY (CLEAR) Urine pH 7.5 (4.5-7.5) Urine Specific [place] 1.019 (1.000-1.030) Urine Protein 2+ (NEG) Urine Glucose (UA) 1+ (NEG) Urine Ketones NEG (NEG) Urine Occult Blood 2+ (NEG) Urine Nitrite NEG (NEG) Urine Bilirubin NEG (NEG) Urine Urobilinogen NEG (NEG) Urine Leukocyte Esterase LARGE (NEG) Urine WBC (Auto) >30 /hpf (0-5) Urine RBC (Auto) >30 /hpf (0-4) Urine Hyaline Casts (Auto) 1-5 /lpf (0-5) Urine Epithelial Cells (Auto) 10-20 /lpf (0-5) Urine Bacteria (Auto) 2+ (NEG) Urine Crystals AMORPHOUS SEDIMENT (NONE Urine Pathogenic Casts 0-3 GRANULAR CASTS /lpf (0) Lactic Acid Level 1.4 mmol/L (0.4-2.0) Medications Administered Medications (Trade) Dose Ordered Sig/Rosie Route Start Time Stop Time Status Last Admin Dose Admin Sodium Chloride 1,000 ml @ 999 mls/hr Q1H1M STAT IV 09/09/17 15:10 09/09/17 16:10 DC 09/09/17 15:05 999 MLS/HR Sodium Chloride 1,000 ml @ 999 mls/hr Q1H1M STAT IV 09/09/17 16:27 09/09/17 17:27 DC 09/09/17 17:04 999 MLS/HR Cefepime HCl 2000 mg/Syringe 20 ml @ 5 mls/min NOW STAT IV 09/09/17 17:40 09/09/17 17:43 DC 09/09/17 17:58 5 MLS/MIN Insulin Human Regular (novoLIN-R U-100 PER UNIT) 10 units NOW STAT SC 09/09/17 17:50 09/09/17 17:52 DC 09/09/17 18:16 10 UNITS Medical Decision CC: Patient presenting with complaint of fatigue, dark cloudy urine Interpretation of Labs: No leukocytosis, mild anemia (appears to be baseline), hyponatremia, hypochloremia, hypocarbia, significant hyperglycemia, elevated BUN and creatinine, elevated Tbili, otherwise normal liver enzymes. Elevated lactic acid. Beta hydroxybutyric acid level elevated. UA from urostomy consistent with UTI, culture pending. Dedicated UA from nephrostomy tube pending. Differential Diagnosis: Includes, but not limited to UTI, pyelonephritis, dehydration, electrolyte abnormality, VERONICA, hyperglycemia, DKA, bacteremia/sepsis , among others. Medication Reconciliation: I attest that I have personally reviewed the patient' s current medication list. Vital signs review: I reviewed the patient's vital signs and interpret them as follows: T: Afebrile; BP: Normotensive; HR: Mildly tachycardic; RR: Within normal limits; Pulse Ox: Within normal limits on room air. Blood pressure screening: The patient was found to have normal blood pressure on screening and does not require follow-up for repeat blood pressure check. Summary: Patient was evaluated at bedside, history and physical exam performed. Patient is alert and distress, resting comfortably in the stretcher. Patient does appear moderately dehydrated on exam. Urine from the urostomy noted to be dark and cloudy. Orders were placed at bedside for labs, UA, urine culture, blood cultures, IV fluids for hydration, chest x-ray to evaluate for cardiopulmonary disease. Patient discussed with Dr. Toscnao, who agrees with my assessment and plan. Labs reviewed as above, concerning for multiple electrolyte abnormalities and acute kidney injury, elevated lactic acid. Significantly hyperglycemic with positive serum ketones. UA appears consistent with the UTI, culture pending for sensitivities. Chest x-ray is unremarkable. Patient reassessed multiple times throughout ED stay, he reports that he is feeling about the same. Of note, he has become slightly more tachycardic while in the emergency department in spite of receiving 2 L of IV fluids. Given the presence of UTI with significant dehydration and developing acute kidney injury, as well as the presence of significant hyperglycemia, I feel the patient warrants admission at this time. IV cefepime ordered to treat the UTI. Subcutaneous insulin ordered to treat the hyperglycemia, and will continue to monitor. I spoke with Dr. Schultz, hospitalist, who agrees to admit the patient. Patient stable at time of admission. Impression Primary Impression: Complicated UTI (urinary tract infection) Additional Impressions: VERONICA (acute kidney injury) Hyperglycemia Dehydration Departure Information Referrals Ozzie Cohen M.D. (PCP) Patient Instructions My [facility] Problem Qualifiers
[2017-09-09] MEDS ORDERED: HALO0.5T9 PO (15:41)
[2017-09-09 15:44] LABS: HEMATOCRIT 32.6 % (42-52); MEAN CELL VOLUME 83.2 fL (80-100); MEAN CORPUSCULAR HGB CONC 32.5 g/dl (32-36); MEAN PLATELET VOLUME 9.1 fL (7.4-10.4); PLATELET COUNT 235 K/uL (130-400); RED BLOOD COUNT 3.92 M/uL (4.7-6.1); WHITE BLOOD COUNT 8.99 K/uL (4.8-10.8)
[2017-09-09] MEDS ORDERED: INSU100I SC (15:44)
[2017-09-09] MEDS ORDERED: NITR1CAP32 PO (15:45)
[2017-09-09] MEDS ORDERED: METF-384 PO (15:46)
[2017-09-09] MEDS ORDERED: MRN5 PO (15:48)
[2017-09-09] MEDS ORDERED: LORA-741 PO (15:48)
[2017-09-09] MEDS ORDERED: TRIF0.27 PO (15:51)
--- NOTE | 2017-09-09 16:07 | DIAGNOSTIC IMAGING REPORT ---
CHEST ONE VIEW PORTABLE CLINICAL HISTORY: 46 years-old Male presenting with Evaluate Fever/Sepsis. TECHNIQUE: Portable upright AP view of the chest was obtained. COMPARISON: 02/20/[address] from 10/21/2016. FINDINGS: Left subclavian Mediport terminates in the upper SVC. Cardiac mediastinal silhouette normal. Lungs and pleural spaces clear. Osseous structures normal. Upper abdomen normal. IMPRESSION: 1. No acute cardiopulmonary disease. Electronically signed by: Luiz Carnes M.D. 09/09/2017 4:05 PM Dictated Date/Time: 09/09/2017 4:03 PM
[2017-09-09 16:10] LABS: BUN/CREATININE RATIO 27.3 (10-20); CALCIUM 10.1 mg/dl (8.5-10.1); CREATININE 2.04 mg/dl (0.60-1.40); POTASSIUM 4.9 mmol/L (3.5-5.1)
[2017-09-09 16:15] LABS: URINE APPEARANCE CLOUDY (CLEAR); URINE BILIRUBIN NEG (NEG); URINE COLOR DK YELLOW; URINE NITRITE NEG (NEG); URINE PH 7.5 (4.5-7.5); URINE SPECIFIC GRAVITY 1.019 (1.000-1.030); UROBILINOGEN NEG (NEG)
[2017-09-09 16:16] LABS: BASO % 0.2 %; BASO ABS # 0.02 K/uL (0-0.2); COMPLETE YES; DOHLE BODIES OCCASIONAL; EOS % 0.2 %; HYPERSEGMENTED POLYS 1+; IG% 0.4 %; LYMPH % 4.2 %; LYMPH ABS # 0.38 K/uL (1.2-3.4); MONO % 3.6 %; NEUT % 91.4 %; VACUOLIZATION OCCASIONAL
[2017-09-09 16:28] LABS: BETA-HYDROXYBUTYRATE 13.82 mg/dL (0.2-2.81)
[2017-09-09 16:30] LABS: MANUAL MICROSCOPIC REQUIRED? NO; REVIEW REQ? YES
[2017-09-09 16:31] LABS: SULFASALICYLIC ACID POS (NEG)
[2017-09-09 16:36] LABS: URINE PATH CASTS 0-3 GRANULAR CASTS /lpf (0)
[2017-09-09] MEDS ORDERED: CEFEPIME IV 2,000 MG in DEXTROSE 5% 100ML 100 ML IV STA (17:18)
[2017-09-09] MEDS ORDERED: CEFEPIME IV 2,000 MG in SYRINGE 7.5 ML IV STA (17:40)
[2017-09-09] MEDS ORDERED: NovoLIN-R INSULIN PER UNIT CHARGE SC STA (17:50)
[2017-09-09] MEDS ORDERED: ONDANSETRON 8 MG TAB PO PRN (18:00)
[2017-09-09] MEDS ORDERED: PROCHLORPERAZINE MALEATE 10 MG TAB PO PRN (18:00)
[2017-09-09] MEDS ORDERED: LORAZEPAM 0.5 MG TAB PO PRN (18:00)
[2017-09-09] MEDS ORDERED: HALOPERIDOL 0.5 MG TAB PO PRN (18:00)
[2017-09-09] MEDS ORDERED: INSULIN IV INFUSION PROTOCOL SCH (18:32)
--- NOTE | 2017-09-09 19:03 | History and Physical ---
History & Physical Date & Time of Service: Sep 09, 2017 at 18:56 Chief Complaint: UTI Primary Care Physician: Ozzie Cohen M.D. History of Present Illness This unfortunate 46-year-old male with metastatic rectal carcinoma who over the last 7 years and for major resections of his pelvis most recently having bladder invasion of his cancer with a urostomy with a what I believe is a right- sided nephrostomy tube in the urostomy. This nephrostomy tube gets changed every 10 weeks on the last 2-3 occasions the weeks preceding the change the patient's developed a urinary tract infection. The patient presents today with similar symptoms of 4 days' worth of pain in his abdomen chills and body aches symptoms very consistent with his previous urinary tract infections despite having battled cancer for last 7 years the patient is in fairly robust condition very knowledgeable about his care and wishes to stay in the hospital as least as possible other confounding laboratory results show his blood glucose to be elevated in the 400 range despite not eating for the last 3-4 days and although having a low-sodium this is likely correctable not completely to normal but more near-normal he is an elevated lactic acid on presentation. His last urinary tract infection with a pansensitive Klebsiella organism patient also has a colostomy bag in his abdomen which been functioning normally. The patient having not eaten over the last 4 days, also taken his insulin for that period of time. He does have decreased bicarbonate is difficult to tell if it's from dehydration perfusion early sepsis ketoacidosis. Past Medical/Surgical History Medical Problems: (1) Colon Cancer Status: Chronic (2) Colostomy Status: Resolved (3) Diabetes mellitus Status: Chronic (4) Necrotizing fasciitis Status: Resolved (5) Rectal adenocarcinoma Status: Chronic Family History No significant family history Social History Smoking Status: Never Smoker Drug Use: none Marital Status: single Occupational Status: employed Immunizations History of Influenza Vaccine: Yes Influenza Vaccine Date: Jul 26, 2013 History of Tetanus Vaccine?: utd History of Pneumococcal: Unknown History of Hepatitis B Vaccine: No Multi-Drug Resistant Organisms History of MDRO: No Allergies Coded Allergies: No Known Allergies (Verified , 09/09/17) Home Medications Scheduled Atorvastatin (Lipitor), 20 MG PO HS Dronabinol (Marinol), 5 MG PO BID Gabapentin (Neurontin), 300 MG PO TID Insulin Detemir (Levemir), 100 UNITS SC HS Insulin Lispro (Human) (Humalog), 16 SC AC Metformin Hcl (Glucophage), 1,000 MG PO BID Nitrofurantoin Macrocrystals (Macrodantin), 100 MG PO DAILY Olanzapine (Zyprexa), 10 MG PO DAILY Trifluridine-Tipiracil (Lonsurf 20-8.19 mg), 1 DOSE PO UD Scheduled PRN Haloperidol (Haldol), 0.5 MG PO DAILY PRN for Nausea Lorazepam (Ativan), 0.5 MG PO DAILY PRN for Anxiety Ondansetron (Ondansetron HCl), 8 MG PO Q8H PRN for Nausea Prochlorperazine Maleate (Compazine), 10 MG PO Q6H PRN for Nausea Review of Systems ROS: well nourished well developed No double vision blurry vision No problems with speech or swallowing No palpitations, chest pain or pressure No Wheezing or breathing issues Right lower quadrant abdominal pain mild nausea without vomiting decreased appetite Urostomy urine is normal to him he has however having pain is reminiscent of his previous urine infections No focal joint pain or muscle pain No skin rashes or oral lesions No unusual bruising or bleeding No focused back pain or loss of strength patient suffers from lower extremity peripheral neuropathy No changes in memory or confusion Constitutional: + chills, + weakness, No fever Physical Exam Vital Signs Date Time Temp Pulse Resp B/P (MAP) Pulse Ox O2 Delivery O2 Flow Rate FiO2 09/09/17 18:42 112 20 122/77 100 Room Air 09/09/17 17:41 112 20 114/75 96 Room Air 09/09/17 17:05 103 22 109/67 97 Room Air 09/09/17 16:40 36.9 09/09/17 16:14 109 09/09/17 14:42 92 18 123/81 98 Room Air General Appearance: WD/WN, + moderate distress Eyes: PERRL, EOMI Neck: supple, no JVD Respiratory/Chest: chest non-tender, lungs clear, normal breath sounds Cardiovascular: regular rate, rhythm, no murmur Abdomen/GI: normal bowel sounds, soft, + pertinent finding (tenderness in the right mid quadrant) Back: no CVA tenderness, no muscle spasm Extremities/Musculoskelatal: normal capillary refill, + pertinent finding ( patient has had amputation of his great toe and his right foot fourth metatarsal ) Neurologic/Psych: alert, oriented x 3 Diagnostics Laboratory Results Results Past 24 Hours Test 09/09/17 15:28 09/09/17 15:35 09/09/17 18:19 Range/Units White Blood Count 8.99 4.8-10.8 K/uL Red Blood Count 3.92 4.7-6.1 M/uL Hemoglobin 10.6 14.0-18.0 g/dL Hematocrit 32.6 42-52 % Mean Corpuscular Volume 83.2 80-100 fL Mean Corpuscular Hemoglobin 27.0 25-34 pg Mean Corpuscular Hemoglobin Concent 32.5 32-36 g/dl Platelet Count 235 130-400 K/uL Mean Platelet Volume 9.1 7.4-10.4 fL Neutrophils (%) (Auto) 91.4 % Lymphocytes (%) (Auto) 4.2 % Monocytes (%) (Auto) 3.6 % Eosinophils (%) (Auto) 0.2 % Basophils (%) (Auto) 0.2 % Neutrophils # (Auto) 8.21 1.4-6.5 K/uL Lymphocytes # (Auto) 0.38 1.2-3.4 K/uL Monocytes # (Auto) 0.32 0.11-0.59 K/uL Eosinophils # (Auto) 0.02 0-0.5 K/uL Basophils # (Auto) 0.02 0-0.2 K/uL RDW Standard Deviation 47.9 36.4-46.3 fL RDW Coefficient of Variation 15.8 11.5-14.5 % Immature Granulocyte % (Auto) 0.4 % Immature Granulocyte # (Auto) 0.04 0.00-0.02 K/uL Nucleated RBC Absolute Count (auto) 0.02 0-0 K/uL Nucleated Red Blood Cells % 0.3 % Hypersegmented Polys 1+ Toxic Vacuolation OCCASIONAL Dohle Bodies OCCASIONAL Sodium Level 126 136-145 mmol/L Potassium Level 4.9 3.5-5.1 mmol/L Chloride Level 95 98-107 mmol/L Carbon Dioxide Level 17 21-32 mmol/L Anion Gap 14.0 3-11 mmol/L Blood Urea Nitrogen 56 7-18 mg/dl Creatinine 2.04 0.60-1.40 mg/dl Est Creatinine Clear Calc Drug Dose 54.9 ml/min Estimated GFR () 43.7 Estimated GFR (Non- 37.7 BUN/Creatinine Ratio 27.3 10-20 Random Glucose 473 70-99 mg/dl Lactic Acid Level 2.1 1.4 0.4-2.0 mmol/L Calcium Level 10.1 8.5-10.1 mg/dl Total Bilirubin 1.2 0.2-1 mg/dl Direct Bilirubin 0.3 0-0.2 mg/dl Aspartate Amino Transf (AST/SGOT) 6 15-37 U/L Alanine Aminotransferase (ALT/SGPT) 8 12-78 U/L Alkaline Phosphatase 100 45-117 U/L Total Protein 9.7 6.4-8.2 gm/dl Albumin 3.1 3.4-5.0 gm/dl Beta-Hydroxybutyric Acid 13.82 0.2-2.81 mg/dL Urine Color DK YELLOW Urine Appearance CLOUDY CLEAR Urine pH 7.5 4.5-7.5 Urine Specific [place] 1.019 1.000-1.030 Urine Protein 2+ NEG Urine Glucose (UA) 1+ NEG Urine Ketones NEG NEG Urine Occult Blood 2+ NEG Urine Nitrite NEG NEG Urine Bilirubin NEG NEG Urine Urobilinogen NEG NEG Urine Leukocyte Esterase LARGE NEG Urine WBC (Auto) >30 0-5 /hpf Urine RBC (Auto) >30 0-4 /hpf Urine Hyaline Casts (Auto) 1-5 0-5 /lpf Urine Epithelial Cells (Auto) 10-20 0-5 /lpf Urine Bacteria (Auto) 2+ NEG Urine Crystals AMORPHOUS SEDIMENT NONE PRSENT Urine Pathogenic Casts 0-3 GRANULAR CASTS 0 /lpf Microbiology Results 09/09/17 Blood Culture, Received Pending 09/09/17 Blood Culture, Received Pending 09/09/17 Urine Culture, Received Pending 09/09/17 Urine Culture, Received Pending Impression Assessment and Plan [id number]-year-old male with metastatic rectal carcinoma presents with similar symptoms to previous urine infections, competent UTI possible early sepsis next For the possibility of early sepsis repeat lactic acid be undertaken he'll continue intravenous hydration and being instituted on intravenous cefepime For uncontrolled diabetes possibility of ketoacidosis the patient placed on an insulin drip, will hold all other diabetic medications at this time Hyponatremia corrects likely to 130 range will follow him with normal saline and check the labs in the morning For his nephrostomy tube this will remain in place he wishes to have her see urology follow with him and does not wish for anyone here to follow Regarding DVT prevention will employ enoxaparin due to his malignancy VTE Prophylaxis VTE Risk Assessment Done? Y/N: Yes Risk Level: Moderate
[2017-09-09] MEDS ORDERED: HHS GOAL RANGE 250-350 mg/dl ONE (19:40)
[2017-09-09] MEDS ORDERED: MODERATE STRESS LEVEL ONE (19:40)
[2017-09-09 19:42] VITALS: BP 131/82; PULSE 110; TEMP 36.7; O2SAT 100; BMI 25.7
[2017-09-09] MEDS ORDERED: SODIUM CHLORIDE 0.9% 1000ML 1,000 ML IV SCH (20:30)
[2017-09-09] MEDS ORDERED: SODIUM CHLORIDE 0.9% 1000ML 1,000 ML IV ONE (20:30)
[2017-09-09] MEDS: INSULIN REGULAR 250 UNITS in SODIUM CHLORIDE 0.9% 250ML 250 ML IV SCH ×3 (20:41→23:37)
[2017-09-09] MEDS ORDERED: INSULIN HUMAN REGULAR IV BOLUS 2.5 UNIT in SYRINGE 0 ML IV ONE (20:45)
[2017-09-09 20:49] LABS: INR 1.1 (0.9-1.1); PROTHROMBIN TIME (PATIENT) 11.7 SECONDS (9.0-12.0)
[2017-09-09 20:53] LABS: URINE APPEARANCE CLOUDY (CLEAR); URINE BILIRUBIN NEG (NEG); URINE COLOR YELLOW; URINE EPITHELIAL CELL AUTO 0-5 /lpf (0-5); URINE NITRITE POS (NEG); URINE SPECIFIC GRAVITY 1.015 (1.000-1.030); UROBILINOGEN NEG (NEG)
[2017-09-09 20:58] LABS: BUN/CREATININE RATIO 30.2 (10-20); CALCIUM 9.4 mg/dl (8.5-10.1); CREATININE 1.87 mg/dl (0.60-1.40); PHOSPHORUS 2.7 mg/dl (2.5-4.9); POTASSIUM 4.5 mmol/L (3.5-5.1)
[2017-09-09] MEDS ORDERED: INSULIN DETEMIR 100 UNIT SC SCH (21:00)
[2017-09-09 21:09] LABS: BETA-HYDROXYBUTYRATE 3.11 mg/dL (0.2-2.81)
[2017-09-09] MEDS ORDERED: INFLUENZA VIRUS QUAD VACCINE 0.5 ML SYR IM. ONE (21:15)
[2017-09-09] MEDS ORDERED: INFLUENZA ADMINISTRATION CHARGE ONE (21:15)
[2017-09-09 21:19] LABS: MANUAL MICROSCOPIC REQUIRED? NO; REVIEW REQ? YES
[2017-09-09] MEDS: SODIUM CHLORIDE 0.9% 1000ML 1,000 ML IV SCH (21:37)
[2017-09-09] MEDS ORDERED: CEFEPIME IV 1,000 MG in DEXTROSE 5% 100ML 100 ML IV SCH (22:00)
[2017-09-09] MEDS: ATORVASTATIN 20 MG TAB PO SCH (22:31)
[2017-09-09] MEDS: GABAPENTIN 300 MG CAP PO SCH (22:31)
[2017-09-09] MEDS: ENOXAPARIN 40 MG/0.4 ML SYR SQ SCH (22:31)
[2017-09-09] MEDS: DRONABINOL 2.5 MG CAP PO SCH (23:36)
[2017-09-09] MEDS: ACETAMINOPHEN 325 MG TAB PO PRN (23:36)
[2017-09-09 23:48] VITALS: BP 111/78; PULSE 120; TEMP 38.9; O2SAT 100
[2017-09-10] VITALS (7 sets, daily range): BP systolic 104–126; BP diastolic 70–80; PULSE 101–119; TEMP 36.4–38.6; O2SAT 94–99; BMI 25.8
[2017-09-10 00:21] LABS: BUN/CREATININE RATIO 29.8 (10-20); CALCIUM 9.4 mg/dl (8.5-10.1); CREATININE 1.89 mg/dl (0.60-1.40); MAGNESIUM 1.9 mg/dl (1.8-2.4); PHOSPHORUS 2.4 mg/dl (2.5-4.9); POTASSIUM 4.1 mmol/L (3.5-5.1)
[2017-09-10 00:31] LABS: BETA-HYDROXYBUTYRATE 1.38 mg/dL (0.2-2.81)
[2017-09-10] MEDS: OXYCODONE HCL IR 5 MG TAB (IMMEDIATE RELEASE) PO PRN (01:16)
[2017-09-10 04:30] LABS: BUN/CREATININE RATIO 30.2 (10-20); CALCIUM 9.3 mg/dl (8.5-10.1); CREATININE 1.89 mg/dl (0.60-1.40); POTASSIUM 4.5 mmol/L (3.5-5.1)
[2017-09-10 04:37] LABS: PHOSPHORUS 3.2 mg/dl (2.5-4.9)
[2017-09-10] MEDS: CEFEPIME IV 1,000 MG in SYRINGE 0 ML IV SCH ×2 (05:30→18:22)
[2017-09-10] MEDS ORDERED: INSULIN ASPART 100 UNITS/ML 3 ML PEN SC SCH (06:30)
[2017-09-10] MEDS: SODIUM CHLORIDE 0.9% 1000ML 1,000 ML IV SCH (06:39)
[2017-09-10] MEDS: DRONABINOL 2.5 MG CAP PO SCH ×3 (08:00→21:50)
[2017-09-10] MEDS: GABAPENTIN 300 MG CAP PO SCH ×3 (08:07→21:43)
[2017-09-10] MEDS: OLANZAPINE 10 MG TAB PO SCH (08:08)
[2017-09-10 08:48] LABS: BUN/CREATININE RATIO 29.6 (10-20); CALCIUM 9.1 mg/dl (8.5-10.1); CREATININE 1.73 mg/dl (0.60-1.40); MAGNESIUM 1.8 mg/dl (1.8-2.4); POTASSIUM 4.1 mmol/L (3.5-5.1)
[2017-09-10] MEDS: INSULIN REGULAR 250 UNITS in SODIUM CHLORIDE 0.9% 250ML 250 ML IV SCH ×7 (08:51→19:30)
[2017-09-10 08:52] LABS: PHOSPHORUS 2.4 mg/dl (2.5-4.9)
[2017-09-10] MEDS: INSULIN ASPART 100 UNITS/ML 3 ML PEN SC SCH ×4 (09:23→21:00)
[2017-09-10] MEDS ORDERED: D5W AND 1/2NSS + 20MEQ KCL 1,000 ML IV SCH (09:30)
[2017-09-10] MEDS ORDERED: D5NSS + 20MEQ KCL 1,000 ML IV SCH (10:00)
[2017-09-10 12:38] LABS: BUN/CREATININE RATIO 28.1 (10-20); CALCIUM 8.7 mg/dl (8.5-10.1); CREATININE 1.86 mg/dl (0.60-1.40); MAGNESIUM 1.8 mg/dl (1.8-2.4); PHOSPHORUS 2.3 mg/dl (2.5-4.9); POTASSIUM 4.2 mmol/L (3.5-5.1)
[2017-09-10] MEDS ORDERED: PHARMACY GLYCEMIC MGMT CONSULT PRN (12:45)
[2017-09-10 12:48] LABS: BETA-HYDROXYBUTYRATE 0.69 mg/dL (0.2-2.81)
[2017-09-10] MEDS ORDERED: INSULIN DETEMIR SC ONE (14:30)
[2017-09-10] MEDS ORDERED: SODIUM CHLORIDE 0.9% 1000ML 1,000 ML IV SCH (14:30)
--- NOTE | 2017-09-10 14:49 | Pharmacy Progress Note ---
Glycemic Control Intl Consult Date of Service Sep 10, 2017. Scope Glycemic Pharmacist consulted by Dr Sarkar on 09/10 for glycemic control and to write orders per [facility] inpatient glycemic control protocol Objective Weight (Kilograms): 96.300 Accuchecks BSG (last 24hrs): Test 09/09/17 15:28 09/09/17 18:09 09/09/17 19:09 09/09/17 20:22 Random Glucose 473 mg/dl (70-99) 351 mg/dl (70-99) Bedside Glucose 421 mg/dl (70-99) 373 mg/dl (70-99) Test 09/09/17 20:33 09/09/17 21:26 09/09/17 22:35 09/09/17 23:23 Bedside Glucose 373 mg/dl (70-99) 387 mg/dl (70-99) 346 mg/dl (70-99) 363 mg/dl (70-99) Test 09/09/17 23:54 09/10/17 00:27 09/10/17 01:18 09/10/17 02:24 Random Glucose 311 mg/dl (70-99) Bedside Glucose 389 mg/dl (70-99) 308 mg/dl (70-99) 273 mg/dl (70-99) Test 09/10/17 03:25 09/10/17 04:02 09/10/17 04:28 09/10/17 05:26 Bedside Glucose 279 mg/dl (70-99) 232 mg/dl (70-99) 222 mg/dl (70-99) Random Glucose 246 mg/dl (70-99) Test 09/10/17 06:24 09/10/17 07:31 09/10/17 08:19 09/10/17 08:35 Bedside Glucose 239 mg/dl (70-99) 255 mg/dl (70-99) 246 mg/dl (70-99) Random Glucose 243 mg/dl (70-99) Test 09/10/17 09:47 09/10/17 10:44 09/10/17 11:47 09/10/17 12:07 Bedside Glucose 314 mg/dl (70-99) 315 mg/dl (70-99) 332 mg/dl (70-99) Random Glucose 321 mg/dl (70-99) Test 09/10/17 13:46 Bedside Glucose 384 mg/dl (70-99) Laboratory Data (last 24hrs) Test 09/09/17 15:28 09/09/17 20:22 09/09/17 23:54 09/10/17 04:02 Anion Gap 14.0 mmol/L 12.0 mmol/L 11.0 mmol/L 9.0 mmol/L BUN/Creatinine Ratio 27.3 30.2 29.8 30.2 Blood Urea Nitrogen 56 mg/dl 57 mg/dl 56 mg/dl 57 mg/dl Creatinine 2.04 mg/dl 1.87 mg/dl 1.89 mg/dl 1.89 mg/dl Potassium Level 4.9 mmol/L 4.5 mmol/L 4.1 mmol/L 4.5 mmol/L Sodium Level 126 mmol/L 129 mmol/L 130 mmol/L 131 mmol/L White Blood Count 8.99 K/uL Red Blood Count 3.92 M/uL Hemoglobin 10.6 g/dL Hematocrit 32.6 % Mean Corpuscular Volume 83.2 fL Mean Corpuscular Hemoglobin 27.0 pg Mean Corpuscular Hemoglobin Concent 32.5 g/dl Platelet Count 235 K/uL Mean Platelet Volume 9.1 fL Neutrophils (%) (Auto) 91.4 % Lymphocytes (%) (Auto) 4.2 % Monocytes (%) (Auto) 3.6 % Eosinophils (%) (Auto) 0.2 % Basophils (%) (Auto) 0.2 % Neutrophils # (Auto) 8.21 K/uL Lymphocytes # (Auto) 0.38 K/uL Monocytes # (Auto) 0.32 K/uL Eosinophils # (Auto) 0.02 K/uL Basophils # (Auto) 0.02 K/uL Test 09/10/17 08:19 09/10/17 12:07 Anion Gap 11.0 mmol/L 8.0 mmol/L BUN/Creatinine Ratio 29.6 28.1 Blood Urea Nitrogen 51 mg/dl 52 mg/dl Creatinine 1.73 mg/dl 1.86 mg/dl Potassium Level 4.1 mmol/L 4.2 mmol/L Sodium Level 131 mmol/L 131 mmol/L Recent Pertinent Medications Outpatient Anti-diabetic Regimen: * Levemir 100 units qHS * Humalog 16 units with meals * Metformin 1 gm BID * A1c = 10.2 % 11/15/14 The patient is currently receiving: * An insulin drip at 1.8 units/hr with BSGs not yet controlled Risk Factors for Insulin Resistance: * Infection: complicated UTI * IVF: was on D5NS + 20 K @ 100 cc/hr but this was d/c'd * Diet: type 2 diabetes diet * [facility] insulin resistance Assessment & Plan ASSESSMENT: * 46 y/o male admitted with complicated UTI and hyperglycemia, possibility of ketoacidosis as per H&P. AG 14, beta-hydroxybutyric acid 13.8, no urine ketones. * He was initiated on an insulin drip and this has continued but BSGs have remained elevated as the goal range for the drip was never adjusted * He is quite insulin resistant as an outpatient, using 100 units of Levemir and ~150 units of total insulin/day. No recent A1c available to assess recent outpatient control. * He had his last dose of Levemir on 09/08 PM. Of note, during his last admission this year, he received the 100 units of Levemir with good fasting BSGs but had elevated postprandials. * His current drip rates are less than 2 units/hr but BSGs are in the 300s. Will plan to give a one time dose of 100 units of Levemir to assist with possible transition off the drip. It is currently unclear if he will continue to need this dose or have it reduced to be more of a 50/50 split. PLAN FOR INPATIENT GLYCEMIC CONTROL: * Tighten insulin drip goal range to 100-180 mg/dL * Give 100 units of Levemir x 1 now to assist with transitioning off insulin drip, further dosing to be guided by BSGs tomorrow * If insulin drip held per calculator or less than 1 unit/hr, insulin drip may be d/c'd * Pending order entered to change Novolog to goal 100-140, CF 10 and CR 3 at this time * Spoke with Dr. Sarkar, continue fluids (NS @ 100 cc/hr) to further improve BSGs and d/c when insulin drip d/c's * Please note that the plan above was derived based on current level of insulin resistance and hospital stress. These recommendations are appropriate for inpatient admission only. Plan of care upon discharge will need to be reassessed to avoid potential outpatient hypo/hyperglycemia. Thank you.
--- NOTE | 2017-09-10 15:20 | Progress Note ---
Subjective Date of Service: Sep 10, 2017. Subjective Pt evaluation today including: conversation w/ patient, physical exam, lab review, review of inpatient medication list Pain: no pain PO Intake: adequate Voiding: goff catheter in place patient feels better today, no fever, eating well discussed lab results, sugars remain high consulted pharmacy to manage sugars, going back up despite insulin gtt Cr stable urine culture with gram negative bacilli Problem List Medical Problems: (1) VERONICA (acute kidney injury) Status: Acute (2) Dehydration Status: Acute (3) Hyperglycemia Status: Acute (4) Pyelonephritis Status: Acute Review of Systems Constitutional: + weakness, + fatigue All Other Systems: Reviewed and Negative Medications Current Inpatient Medications Medications (Trade) Dose Ordered Sig/Rosie Route Start Time Stop Time Status Last Admin Dose Admin Atorvastatin Calcium (Lipitor Tab) 20 mg HS PO 09/09/17 21:00 10/09/17 20:59 09/09/17 22:31 20 MG Gabapentin (Neurontin Cap) 300 mg TID PO 09/09/17 20:02 10/09/17 20:59 09/10/17 08:07 300 MG Haloperidol (Haldol Tab) 0.5 mg DAILY PRN PO 09/09/17 18:00 10/09/17 17:59 Lorazepam (Ativan Tab) 0.5 mg DAILY PRN PO 09/09/17 18:00 10/09/17 17:59 Olanzapine (Zyprexa Tab) 10 mg DAILY PO 09/10/17 08:00 10/10/17 08:59 09/10/17 08:08 10 MG Ondansetron HCl (Zofran Tab) 8 mg Q8H PRN PO 09/09/17 18:00 10/09/17 17:59 Prochlorperazine Maleate (Compazine Tab) 10 mg Q6H PRN PO 09/09/17 18:00 10/09/17 17:59 Dronabinol (Marinol Cap) 5 mg BID PO 09/09/17 20:30 10/09/17 20:29 09/09/17 23:36 5 MG Miscellaneous Information (Order Awaiting Action) 1 ea QS N/A 09/10/17 00:00 10/10/17 00:00 Insulin Aspart (novoLOG ASPART) SLIDING SCALE PCHS SC 09/09/17 19:00 10/09/17 18:59 09/10/17 12:46 3 UNITS Enoxaparin Sodium (Lovenox Inj) 40 mg Q24H SQ 09/09/17 22:00 10/09/17 21:59 09/09/17 22:31 40 MG Acetaminophen (Tylenol Tab) 650 mg Q4H PRN PO 09/09/17 18:30 10/09/17 18:29 09/09/17 23:36 650 MG Insulin Human Regular 250 units/ Sodium Chloride 252.5 ml @ 0 mls/hr Q24H IV 09/09/17 20:47 10/09/17 20:46 09/10/17 14:00 2.5 MLS/HR Cefepime HCl 1000 mg/Syringe 11 ml @ 5.5 mls/min Q12@0600,1800 IV 09/10/17 06:00 09/20/17 05:59 09/10/17 05:30 5.5 MLS/MIN Oxycodone HCl (Roxicodone Immediate Rel Tab) @ Q4H PRN PO 09/10/17 00:45 09/24/17 00:44 09/10/17 01:16 10 MG Miscellaneous Information (Consult Glycemic Management Pharmacy) 1 ea UD PRN N/A 09/10/17 12:45 10/10/17 12:44 Sodium Chloride 1,000 ml @ 100 mls/hr Q10H IV 09/10/17 14:30 10/10/17 14:29 Miscellaneous Information (Pending Order) 1 ea QS N/A 09/10/17 16:00 10/10/17 15:59 Objective Vital Signs Date Time Temp Pulse Resp B/P (MAP) Pulse Ox O2 Delivery O2 Flow Rate FiO2 09/10/17 11:30 37.5 109 24 114/71 (85) 94 Room Air 09/10/17 09:30 96 Room Air 09/10/17 08:00 Room Air 09/10/17 07:50 37.3 115 28 126/75 (92) 96 Room Air 09/10/17 03:28 37.3 101 18 104/70 (81) 98 Room Air 09/10/17 00:45 38.5 09/10/17 00:00 Room Air 09/09/17 23:48 38.9 120 18 111/78 (89) 100 Room Air 09/09/17 19:56 115 20 120/79 100 09/09/17 19:42 36.7 110 16 131/82 100 Room Air 09/09/17 18:42 112 20 122/77 100 Room Air 09/09/17 17:41 112 20 114/75 96 Room Air 09/09/17 17:05 103 22 109/67 97 Room Air 09/09/17 16:40 36.9 09/09/17 16:14 109 Physical Exam General Appearance: WD/WN, no apparent distress Neck: supple, no adenopathy, no JVD, trachea midline Respiratory/Chest: chest non-tender, lungs clear, normal breath sounds, no respiratory distress, no accessory muscle use Cardiovascular: regular rate, rhythm, no edema, no gallop, no JVD, no murmur Abdomen: normal bowel sounds, non tender, soft, no organomegaly, + pertinent finding (urostomy tube) Extremities: normal range of motion, non-tender, normal inspection, no pedal edema, no calf tenderness, pelvis stable 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, no motor/sensory deficits, alert, normal mood/affect, oriented x 3 Skin: normal color, warm/dry, no rash Laboratory Results Last 24 Hours Test 09/09/17 15:28 09/09/17 15:35 09/09/17 18:09 09/09/17 18:19 White Blood Count 8.99 K/uL Red Blood Count 3.92 M/uL Hemoglobin 10.6 g/dL Hematocrit 32.6 % Mean Corpuscular Volume 83.2 fL Mean Corpuscular Hemoglobin 27.0 pg Mean Corpuscular Hemoglobin Concent 32.5 g/dl Platelet Count 235 K/uL Mean Platelet Volume 9.1 fL Neutrophils (%) (Auto) 91.4 % Lymphocytes (%) (Auto) 4.2 % Monocytes (%) (Auto) 3.6 % Eosinophils (%) (Auto) 0.2 % Basophils (%) (Auto) 0.2 % Neutrophils # (Auto) 8.21 K/uL Lymphocytes # (Auto) 0.38 K/uL Monocytes # (Auto) 0.32 K/uL Eosinophils # (Auto) 0.02 K/uL Basophils # (Auto) 0.02 K/uL RDW Standard Deviation 47.9 fL RDW Coefficient of Variation 15.8 % Immature Granulocyte % (Auto) 0.4 % Immature Granulocyte # (Auto) 0.04 K/uL Nucleated RBC Absolute Count (auto) 0.02 K/uL Nucleated Red Blood Cells % 0.3 % Hypersegmented Polys 1+ Toxic Vacuolation OCCASIONAL Dohle Bodies OCCASIONAL Prothrombin Time 11.7 SECONDS Prothromb Time International Ratio 1.1 Sodium Level 126 mmol/L Potassium Level 4.9 mmol/L Chloride Level 95 mmol/L Carbon Dioxide Level 17 mmol/L Anion Gap 14.0 mmol/L Blood Urea Nitrogen 56 mg/dl Creatinine 2.04 mg/dl Est Creatinine Clear Calc Drug Dose 54.9 ml/min Estimated GFR () 43.7 Estimated GFR (Non- 37.7 BUN/Creatinine Ratio 27.3 Random Glucose 473 mg/dl Lactic Acid Level 2.1 mmol/L 1.4 mmol/L Calcium Level 10.1 mg/dl Total Bilirubin 1.2 mg/dl Direct Bilirubin 0.3 mg/dl Aspartate Amino Transf (AST/SGOT) 6 U/L Alanine Aminotransferase (ALT/SGPT) 8 U/L Alkaline Phosphatase 100 U/L Total Protein 9.7 gm/dl Albumin 3.1 gm/dl Beta-Hydroxybutyric Acid 13.82 mg/dL Urine Color DK YELLOW Urine Appearance CLOUDY Urine pH 7.5 Urine Specific [place] 1.019 Urine Protein 2+ Urine Glucose (UA) 1+ Urine Ketones NEG Urine Occult Blood 2+ Urine Nitrite NEG Urine Bilirubin NEG Urine Urobilinogen NEG Urine Leukocyte Esterase LARGE Urine WBC (Auto) >30 /hpf Urine RBC (Auto) >30 /hpf Urine Hyaline Casts (Auto) 1-5 /lpf Urine Epithelial Cells (Auto) 10-20 /lpf Urine Bacteria (Auto) 2+ Urine Crystals AMORPHOUS SEDIMENT Urine Pathogenic Casts 0-3 GRANULAR CASTS /lpf Bedside Glucose 421 mg/dl Test 09/09/17 19:09 09/09/17 20:22 09/09/17 20:33 09/09/17 21:26 Bedside Glucose 373 mg/dl 373 mg/dl 387 mg/dl Venous Blood pH 7.34 Sodium Level 129 mmol/L Potassium Level 4.5 mmol/L Chloride Level 99 mmol/L Carbon Dioxide Level 18 mmol/L Anion Gap 12.0 mmol/L Blood Urea Nitrogen 57 mg/dl Creatinine 1.87 mg/dl Est Creatinine Clear Calc Drug Dose 59.9 ml/min Estimated GFR () 48.5 Estimated GFR (Non- 41.9 BUN/Creatinine Ratio 30.2 Random Glucose 351 mg/dl Calcium Level 9.4 mg/dl Phosphorus Level 2.7 mg/dl Magnesium Level 2.0 mg/dl Beta-Hydroxybutyric Acid 3.11 mg/dL Test 09/09/17 22:35 09/09/17 23:23 09/09/17 23:54 09/10/17 00:27 Bedside Glucose 346 mg/dl 363 mg/dl 389 mg/dl Venous Blood pH 7.33 Sodium Level 130 mmol/L Potassium Level 4.1 mmol/L Chloride Level 100 mmol/L Carbon Dioxide Level 19 mmol/L Anion Gap 11.0 mmol/L Blood Urea Nitrogen 56 mg/dl Creatinine 1.89 mg/dl Est Creatinine Clear Calc Drug Dose 59.3 ml/min Estimated GFR () 47.9 Estimated GFR (Non- 41.3 BUN/Creatinine Ratio 29.8 Random Glucose 311 mg/dl Calcium Level 9.4 mg/dl Phosphorus Level 2.4 mg/dl Magnesium Level 1.9 mg/dl Beta-Hydroxybutyric Acid 1.38 mg/dL Test 09/10/17 01:18 09/10/17 02:24 09/10/17 03:25 09/10/17 04:02 Bedside Glucose 308 mg/dl 273 mg/dl 279 mg/dl Venous Blood pH 7.30 Sodium Level 131 mmol/L Potassium Level 4.5 mmol/L Chloride Level 103 mmol/L Carbon Dioxide Level 19 mmol/L Anion Gap 9.0 mmol/L Blood Urea Nitrogen 57 mg/dl Creatinine 1.89 mg/dl Est Creatinine Clear Calc Drug Dose 59.3 ml/min Estimated GFR () 47.9 Estimated GFR (Non- 41.3 BUN/Creatinine Ratio 30.2 Random Glucose 246 mg/dl Calcium Level 9.3 mg/dl Phosphorus Level 3.2 mg/dl Magnesium Level 2.0 mg/dl Test 09/10/17 04:28 09/10/17 05:26 09/10/17 06:24 09/10/17 07:31 Bedside Glucose 232 mg/dl 222 mg/dl 239 mg/dl 255 mg/dl Test 09/10/17 08:19 09/10/17 08:35 09/10/17 09:47 09/10/17 10:44 Venous Blood pH 7.34 Sodium Level 131 mmol/L Potassium Level 4.1 mmol/L Chloride Level 102 mmol/L Carbon Dioxide Level 18 mmol/L Anion Gap 11.0 mmol/L Blood Urea Nitrogen 51 mg/dl Creatinine 1.73 mg/dl Est Creatinine Clear Calc Drug Dose 64.8 ml/min Estimated GFR () 53.3 Estimated GFR (Non- 46.0 BUN/Creatinine Ratio 29.6 Random Glucose 243 mg/dl Calcium Level 9.1 mg/dl Phosphorus Level 2.4 mg/dl Magnesium Level 1.8 mg/dl Bedside Glucose 246 mg/dl 314 mg/dl 315 mg/dl Test 09/10/17 11:47 09/10/17 12:07 09/10/17 12:11 09/10/17 13:46 Bedside Glucose 332 mg/dl 384 mg/dl Sodium Level 131 mmol/L Potassium Level 4.2 mmol/L Chloride Level 105 mmol/L Carbon Dioxide Level 18 mmol/L Anion Gap 8.0 mmol/L Blood Urea Nitrogen 52 mg/dl Creatinine 1.86 mg/dl Est Creatinine Clear Calc Drug Dose 60.3 ml/min Estimated GFR () 48.8 Estimated GFR (Non- 42.1 BUN/Creatinine Ratio 28.1 Random Glucose 321 mg/dl Calcium Level 8.7 mg/dl Phosphorus Level 2.3 mg/dl Magnesium Level 1.8 mg/dl Beta-Hydroxybutyric Acid 0.69 mg/dL Venous Blood pH 7.32 Test 09/10/17 15:01 Bedside Glucose 425 mg/dl Assessment and Plan 46 yo male with metastatic rectal cancer, presents with UTI, hyperglycemia - UTI with sepsis, POA: continue Cefepime, culture growing gram negative bacilli , follow up on final results, fever last night, still with tachycardia, continue IV fluids - Hyperglycemia without DKA: continue insulin gtt, keep fluids at NSS consult pharmacy for management, will give basal insulin, diabetic diet - Hyponatremia: correcting with NSS, likely some of it was pseudohyponatremia in setting of hyperglycemia DVT prophylaxis: Lovenox likely d/c tomorrow on oral antibiotics
[2017-09-10 17:12] LABS: BUN/CREATININE RATIO 25.2 (10-20); CALCIUM 8.7 mg/dl (8.5-10.1); CREATININE 1.84 mg/dl (0.60-1.40); MAGNESIUM 1.8 mg/dl (1.8-2.4); POTASSIUM 4.3 mmol/L (3.5-5.1)
[2017-09-10 17:13] LABS: PHOSPHORUS 2.1 mg/dl (2.5-4.9)
[2017-09-10 17:22] LABS: BETA-HYDROXYBUTYRATE 0.57 mg/dL (0.2-2.81)
[2017-09-10] MEDS: ATORVASTATIN 20 MG TAB PO SCH (21:43)
[2017-09-10] MEDS: ENOXAPARIN 40 MG/0.4 ML SYR SQ SCH (21:44)
[2017-09-10] MEDS: ACETAMINOPHEN 325 MG TAB PO PRN (23:41)
[2017-09-11 01:20] VITALS: PULSE 102; TEMP 36.8
[2017-09-11 03:57] VITALS: BP 101/64; PULSE 95; TEMP 36.6; O2SAT 97
[2017-09-11 06:13] LABS: ESTIMATED AVERAGE GLUCOSE 232 mg/dl; HA1C FLAG Normal (Normal)
[2017-09-11] MEDS: CEFEPIME IV 1,000 MG in SYRINGE 0 ML IV SCH (06:28)
[2017-09-11] MEDS ORDERED: INSULIN ASPART 100 UNITS/ML 3 ML PEN SC SCH (06:30)
[2017-09-11 06:40] LABS: BUN/CREATININE RATIO 23.1 (10-20); CALCIUM 9.1 mg/dl (8.5-10.1); CREATININE 1.78 mg/dl (0.60-1.40); MAGNESIUM 1.8 mg/dl (1.8-2.4); POTASSIUM 4.3 mmol/L (3.5-5.1)
[2017-09-11 06:58] LABS: PHOSPHORUS 3.3 mg/dl (2.5-4.9)
[2017-09-11 07:26] VITALS: BP 102/68; PULSE 102; TEMP 36.5; O2SAT 99
--- NOTE | 2017-09-11 08:56 | Clinical Documentation Query ---
TOMY Adams : CLINICAL DOCUMENTATION QUERY Patient is a 46 year old male admitted for evaluation of sepsis secondary to UTI. Noted to be hyperglycemic, non-ketotic on admission. History of type 2 DM. Has been treated with IVF, IV insulin, serial chemistries, treatment of infections, pharmacy consultation for glycemic management. As appropriate, consider clarification as suggested below in order to capture the appropriate degree of severity of illness and associated risk of mortality in your patient. Thank you. In your clinical opinion is this patient being managed for: ( x ) Type 2 DM with hyperosmolarity ( ) Not Agree ( ) Other explanation of clinical findings (Please Explain) ( ) Unable to determine (Please Define) ( ) Need to Discuss The medical record reflects the following clinical findings, treatment, and risk factors. Clinical Indicators: As above Treatment:Has been treated with IVF, IV insulin, serial chemistries, treatment of infections, pharmacy consultation for glycemic management Risk Factors: DM, infection, noncompliance with serum glucose measurement and management. Please clarify and document your clinical opinion in the progress notes and discharge summary. Terms such as "probable", "suspected", "likely", "questionable", "possible", or "still to be ruled out" are acceptable. IF IN AGREEMENT, YOU MUST DOCUMENT ABOVE DIAGNOSTIC STATEMENT IN DAILY PROGRESS NOTES AND DISCHARGE SUMMARY. This document is not part of the patient's record. Thank You, Jose Rafael Avila, RN [phone]
[2017-09-11] MEDS: GABAPENTIN 300 MG CAP PO SCH (09:01)
[2017-09-11] MEDS: DRONABINOL 2.5 MG CAP PO SCH (09:02)
[2017-09-11] MEDS: OLANZAPINE 10 MG TAB PO SCH (09:02)
[2017-09-11] MEDS: OXYCODONE HCL IR 5 MG TAB (IMMEDIATE RELEASE) PO PRN (09:17)
[2017-09-11 10:00] VITALS: Ht 193 cm; Wt 97.1 kg
[2017-09-11] MEDS ORDERED: SULF800T23 PO (11:01)
--- NOTE | 2017-09-11 11:05 | Discharge Instructions ---
Discharge Instructions Date of Service Sep 11, 2017. Admission Reason for Admission: Complicated Uti Discharge Discharge Diagnosis / Problem: Complicated UTI, dehydration, hyperglycemia Discharge Goals Goal(s): Decrease discomfort, Improve function Activity Recommendations Activity Limitations: resume your previous activity . Instructions / Follow-Up Instructions / Follow-Up Medications: - BACTRIM DS: take one tablet twice a day for 12 more days UTI: culture grew out Klebsiella and Providencia, both are sensitive to Bactrim , there was resistance to Nitrofurantoin so that would explain why you got the infection despite being on Nitrofurantoin complete 12 more days of antibiotics follow up with Dr. Cohen in next 1-2 weeks return to the hospital if you get worse instead of better Hyperglycemia: likely due to worsening infection, sugars now well controlled, there was no signs of DKA continue Levemir, Novolog and Metformin FOLLOW UP - Dr. Cohen in 1-2 weeks - Urology in 1-2 weeks - oncology as previously scheduled Current Hospital Diet Patient's current hospital diet: Diabetes Type 2 Diet Discharge Diet Recommended Diet: Diabetes Type 2 Diet Pending Studies Studies pending at discharge: no Laboratory Results Hemoglobin A1c Test 09/11/17 05:50 Range/Units Estimated Average Glucose 232 mg/dl Hemoglobin A1c 9.7 H 4.5-5.6 % Medical Emergencies . Who to Call and When: Medical Emergencies: If at any time you feel your situation is an emergency, please call 911 immediately. . Non-Emergent Contact Non-Emergency issues call your: Primary Care Provider Call Non-Emergent contact if: you have any medication questions . . "Provider Documentation" section prepared by Foreign Sarkar. . VTE Core Measure Inpt VTE Proph given/why not?: Enoxaparin (Lovenox)[facility] Drug Monitoring Program Search Results: no issues identified
[2017-09-11 11:11] VITALS: BP 102/68; PULSE 102; TEMP 36.5; O2SAT 99
--- NOTE | 2017-09-12 09:57 | Discharge Summary ---
Discharge Summary Date of Service Sep 11, 2017. Discharge Summary Admission Date: Sep 09, 2017 at 18:27 Discharge Date: Sep 11, 2017 Discharge Disposition: Home Principal Diagnosis: UTI, complicated Problems/Secondary Diagnoses: DM with hyperosmolality, no DKA Dehydration Immunizations: Have You Had Influenza Vaccine: Yes Influenza Vaccine Date: Jul 26, 2013 History of Tetanus Vaccine?: utd History of Pneumococcal: Unknown History of Hepatitis B Vaccine: No Procedures: none Consultations: none Medication Reconciliation New Medications: Sulfamethoxazole-Trimethoprim (Bactrim Ds 800MG/160MG) 1 Tab Tab 1 TAB PO BID for 12 Days, #24 TAB Continued Medications: Atorvastatin (Lipitor) 20 Mg Tab 20 MG PO HS, TAB Dronabinol (Marinol) 5 Mg Cap 5 MG PO BID Gabapentin (Neurontin) 300 Mg Cap 300 MG PO TID, CAP Haloperidol (Haldol) 0.5 Mg Tab 0.5 MG PO DAILY PRN for Nausea, TAB Insulin Detemir (Levemir) 100 Units/Ml Inj 100 UNITS SC HS Insulin Lispro (Human) (Humalog) 100 Unit/Ml Inj 16 SC AC Lorazepam (Ativan) 0.5 Mg Tab 0.5 MG PO DAILY PRN for Anxiety, TAB Metformin Hcl (Glucophage) 1,000 Mg Tab 1000 MG PO BID, TAB Olanzapine (Zyprexa) 10 Mg Tab 10 MG PO DAILY, TAB Ondansetron (Ondansetron HCl) 8 Mg Tab 8 MG PO Q8H PRN for Nausea Prochlorperazine Maleate (Compazine) 10 Mg Tab 10 MG PO Q6H PRN for Nausea, TAB Trifluridine-Tipiracil (Lonsurf 20-8.19 mg) 1 Tab Tab 1 DOSE PO UD take 4 tablets by mouth twice a day on days 1-5, and days 8-12 every 28 days. administer within 1 hour after meal. Discontinued Medications: Nitrofurantoin Macrocrystals (Macrodantin) 100 Mg Cap 100 MG PO DAILY, CAP Discharge Exam Patient feeling much better compared to time of admission. Did have a mild fever around midnight. Patient anxious to get out of the hospital. discussed culture results, sensitive to most antibiotics. he has a history of intolerance with Cipro and Augmentin, believes he can tolerate Bactrim d/c on Bactrim, gave patient contact info to let me know if he does not tolerate Review of Systems: Constitutional: No fever, No chills, No sweats, No weight loss, No weakness , No fatigue, No problem reported Eyes: No worsening of vision, No eye pain, No redness, No discharge, No diplopia, No problem reported ENT: No hearing loss, No unusual epistaxis, No nasal symptoms, No sore throat, No tinnitus, No dental problems, No trouble swallowing, No problem reported Respiratory: No cough, No sputum, No wheezing, No shortness of breath, No dyspnea on exertion, No dyspnea at rest, No hemoptysis, No problem reported Cardiovascular: No chest pain, No orthopnea, No PND, No edema, No claudication, No palpitations, No problem reported Abdomen: No pain, No nausea, No vomiting, No diarrhea, No constipation, No GI bleeding, No problem reported Musculoskeletal: No joint pain, No muscle pain, No swelling, No calf pain, No problem reported Genitourinary - Male: + problem reported (urostomy tube) Neurologic: No memory loss, No paralysis, No weakness, No numbness/tingling , No vertigo, No balance problems, No problem reported Endocrine: No fatigue, No excessive thirst, No excessive urination, No problem reported Hematologic / Lymphatic: No abnormal bleeding/bruising, No clotting problems , No swollen lymph nodes, No night sweats, No problem reported Integumentary: No rash, No itch, No new/changing skin lesions, No color change, No bleeding, No problem reported Physical Exam: General Appearance: WD/WN, no apparent distress Eyes: normal inspection, EOMI, sclerae normal ENT: normal ENT inspection, hearing grossly normal, pharynx normal Neck: supple, no adenopathy, no JVD, trachea midline Respiratory/Chest: chest non-tender, lungs clear, normal breath sounds, no respiratory distress, no accessory muscle use Cardiovascular: no edema, no gallop, no JVD, no murmur, normal peripheral pulses, + tachycardia Abdomen / GI: normal bowel sounds, non tender, soft, no organomegaly, + pertinent finding (ostomy bag) Extremities: normal inspection, no calf tenderness, normal capillary refill , no pedal edema, normal range of motion, pelvis stable 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, no motor/sensory deficits , alert, normal mood/affect, normal reflexes, oriented x 3 Skin: normal color, warm/dry, no rash Hospital Course 46 yo male with metastatic rectal cancer, presents with UTI, hyperglycemia - UTI with sepsis, POA: treated with Cefepime, culture grew Klebsiella and Providencia, resistance to Macrobid which he was taking as prophylaxis will d/c on Bactrim DS BID for a total of 14 days since this is a complicated UTI follow up with PCP should change his prophylactic antibiotic since he failed Macrobid - DM type II with hyperosmolality, hyperglycemia without DKA: treated with insulin gtt and aggressive fluids sugars down to 100's after Levemir instituted with drip diabetic diet d/c home on Levemir, Novolog with meals and Metformin - Hyponatremia: resolved with NSS, likely some of it was pseudohyponatremia in setting of hyperglycemia DVT prophylaxis: Lovenox d/c to home, told patient to contact me if he has diarrhea on the Bactrim Total Time Spent: Greater than 30 minutes This includes examination of the patient, discharge planning, medication reconciliation, and communication with other providers. Discharge Instructions Please refer to the electronic Patient Visit Report (Discharge Instructions) for additional information. Follow-Up Dr. Cohen in 1-2 weeks [facility] in 2 weeks as previously scheduled Additional Copies To Ramon Arroyo MD; Ozzie Cohen M.D.
== END 2017-09-11 12:28 | disposition home or self-care (01) | DRG 871 ==
LOC: C.EDB 14:41 → C.4E 18:27 → ENRESERV 18:34
PROVIDERS: ADMIT Internal Medicine; ATTEND Internal Medicine
DX: A41.9 Sepsis, unspecified organism (principal); E11.00 Type 2 diabetes mellitus with hyperosmolarity without nonketotic hyperglycemic-hyperosmolar coma (NKHHC); C79.11 Secondary malignant neoplasm of bladder; E87.1 Hypo-osmolality and hyponatremia; N39.0 Urinary tract infection, site not specified; C20 Malignant neoplasm of rectum; N17.9 Acute kidney failure, unspecified; E86.0 Dehydration; Z93.3 Colostomy status; Z89.421 Acquired absence of other right toe(s)

== ENCOUNTER → 2017-09-30 | Outpatient (CLI) | payer OTHER ==
[~2017-09-30] MED LIST changes: +HALO0.5T9 PO; -HALO5TAB PO; -HMLI SC; +INSU100I SC; -LEVO-366 PO; +LORA-741 PO; +METF-384 PO; +MRN5 PO; +TRIF0.27 PO
[2017-09-30 19:11] LABS: LYME DISEASE AB IGG NEG (NEG)
[2017-09-30 19:12] LABS: LYME DISEASE AB IGM NEG (NEG)
== END | disposition home or self-care (01) ==
LOC: C.LABBFT 15:08
PROVIDERS: ATTEND Internal Medicine
DX: R53.83 Other fatigue (principal); T14.8XXA Other injury of unspecified body region, initial encounter; W57.XXXA Bitten or stung by nonvenomous insect and other nonvenomous arthropods, initial encounter

== ENCOUNTER → 2017-10-07 | Outpatient (CLI) | payer OTHER ==
--- NOTE | 2017-10-07 10:04 | DIAGNOSTIC IMAGING REPORT ---
BILIARY ULTRASOUND CLINICAL HISTORY: R10.11 Abdominal pain, RUQ (right upper quadrant)[id number] COMPARISON STUDY: 05/10/2013, PET/CT scan dated 05/20/2017 FINDINGS: No pancreatic masses are visualized. There are multiple gallstones. There is increased hepatic echogenicity, most likely secondary to hepatic steatosis. There is an area of presumed scarring within the right hepatic lobe. There is no right-sided hydronephrosis. There is no ductal dilatation. The common bile duct measures 4 mm. There is a right adrenal mass measuring 8.2 x 5.6 x 5.4 cm. This appears larger than on the prior CT scan. IMPRESSION: 1. Cholelithiasis. No evidence of ductal dilatation. 2. 8.2 x 5.6 x 5.4 cm right adrenal mass. 3. Increased hepatic echogenicity, consistent with hepatic steatosis Electronically signed by: Dedrick Dow M.D. 10/07/2017 10:03 AM Dictated Date/Time: 10/07/2017 9:59 AM
== END | disposition home or self-care (01) ==
LOC: C.ULTR 09:25
PROVIDERS: ATTEND Internal Medicine
DX: R10.11 Right upper quadrant pain (principal); K80.20 Calculus of gallbladder without cholecystitis without obstruction; E27.9 Disorder of adrenal gland, unspecified; R93.2 Abnormal findings on diagnostic imaging of liver and biliary tract

== ENCOUNTER → 2017-10-08 | Outpatient (CLI) | payer OTHER ==
[2017-10-08 13:17] LABS: BLOOD UREA NITROGEN 26 mg/dl (7-18); BUN/CREATININE RATIO 14.1 (10-20); CARBON DIOXIDE 15 mmol/L (21-32); CHLORIDE 108 mmol/L (98-107); CREATININE 1.81 mg/dl (0.60-1.40); GLUCOSE 342 mg/dl (70-99); POTASSIUM 4.8 mmol/L (3.5-5.1); SODIUM 133 mmol/L (136-145)
[2017-10-08 13:27] LABS: BETA-HYDROXYBUTYRATE 0.65 mg/dL (0.2-2.81)
== END | disposition home or self-care (01) ==
LOC: C.LABBFT 10:30
PROVIDERS: ATTEND Internal Medicine
DX: C67.9 Malignant neoplasm of bladder, unspecified (principal); N39.0 Urinary tract infection, site not specified; E86.0 Dehydration

== ENCOUNTER → 2017-10-23 | Outpatient (CLI) | payer OTHER ==
[~2017-10-23] MED LIST changes: +DIPH-416 PO; +LVNIS40 INJ; +NITR1CAP32 PO; +NVLGIPEN SC; +PRED10TA PO; +PROC10TA PO; -PROC1TAB5 PO; +ULT50 PO; +VNTHFA/IN INH
--- NOTE | 2017-10-23 16:14 | DIAGNOSTIC IMAGING REPORT ---
(CHEST) THORAX WITHOUT CT DOSE: 1231.67 mGy.cm HISTORY: Metastatic rectal carcinoma RECTAL CANCER STAT TECHNIQUE: Multiaxial CT images of the chest were performed without contrast. A dose lowering technique was utilized adhering to the principles of ALARA. COMPARISON: 10/21/2016 FINDINGS: Progressive nodular pathology of the lungs. Interval 1 cm nodular density left pulmonary apex. Interval small 2 or 3 mm nodular densities transaxial image 26 left hemithorax. Interval left lower lobe nodule measuring 1 cm left lower lobe. 5 mm nodular density increased in volume from the prior study adjacent to the left major fissure transaxial image 30. Progressive nodular change posterior aspect right lower lobe as well as left lower lobe. Largest pleural-based nodule right lower lobe measures 1.4 cm increased from 6 mm. New or interval nodular density measuring 8 mm. Nodular density left lower lobe measuring 6 mm. New nodular density measuring 6 mm medial aspect right base. Progressive right adrenal mass of the upper abdomen. Persistent splenomegaly. Moderate degenerative changes thoracic spine. No significant mediastinal or hilar abnormality. IMPRESSION: 1. Moderately progressive pulmonary nodularity consistent with progressive metastatic disease. 2. Enlarging right adrenal mass. 3. Stable splenomegaly. The above report was generated using voice recognition software. It may contain grammatical, syntax or spelling errors. Electronically signed by: Edmund Iniguez M.D. 10/23/2017 4:12 PM Dictated Date/Time: 10/23/2017 4:07 PM
--- NOTE | 2017-10-23 16:23 | DIAGNOSTIC IMAGING REPORT ---
ABD/PELVIS ORAL CONT ONLY CLINICAL HISTORY: 47 years-old Male presenting with RECTAL CANCER STAT. TECHNIQUE: Multidetector CT of the abdomen and pelvis was performed after the administration of oral contrast only. IV contrast: None. A dose lowering technique was used consistent with the principles of ALARA (as low as reasonably achievable). COMPARISON: 10/21/2016. CT DOSE (mGy.cm): The estimated cumulative dose is 1231.[address] chest. FINDINGS: Tub Puller topogram: Left subclavian Mediport in place. Left ureteral stent with ureteral diversion. Cholecystectomy clips. Lung bases: Interval increase in size of the solid pulmonary nodules at the lung bases, in the posterior basal right lower lobe measuring 13 mm previously 9 mm and in the posterior basal left lower lobe measuring 7 mm previously 5 mm (series 9 image 5). An additional solid pulmonary nodule at the posterior basal right lower lobe is also increased in size now measuring 8 mm previously 3 mm (series 9 image 51) additional punctate solid subpleural/peripheral nodule in the lateral basal right lower lobe (series 9 image 41), unchanged from prior calcified granuloma in the right middle lobe. Normal heart size. Mitral annular calcification. No pericardial or pleural effusion. Liver: Normal morphology. Density consistent with hepatic steatosis. Evaluation for liver lesions cannot be made in the absence of intravenous contrast. Biliary: No gross biliary ductal dilatation allowing for noncontrast technique. Gallbladder decompressed. Pancreas: Mild parenchymal atrophy. Spleen: Enlarged measuring 16 cm in maximal sagittal dimension, previously 14 cm. Adrenal glands: Significant interval increase in size of the right adrenal gland lesion, which completely replaces normal right adrenal parenchyma. This now measures approximately 6.7 cm, previously 4.6 cm. Left adrenal gland normal. Kidneys and ureters: Perinephric fat stranding, unchanged. Atrophy of the left kidney. Decompression of the left renal collecting system with a left ureteral stent in place. Postsurgical changes of ureteral diversion with a right lower quadrant ileal conduit. The right ureter is nondilated. No nephrolithiasis. Gas noted in the left renal collecting system, possibly expected in the setting of the stent. Bladder: Postsurgical changes of cystectomy. Pelvic organs: Postsurgical changes of prostatectomy. Bowel: Postsurgical changes of sigmoidectomy and proctectomy with abdominal peroneal resection. No bowel obstruction. An small bowel anastomosis is noted in the right hemipelvis and is widely patent. Oral contrast has transited to the distal ileum. Moderate stool burden. Left mid abdomen descending colostomy. Peritoneal cavity: No free fluid or intraperitoneal gas. Extensive fascial thickening in the extraperitoneal pelvis. Focal nodular fascial thickening along the left hemipelvis is stable to slightly increased in prominence from the prior exam (series 9 images [id number]). Lymph nodes: Numerous prominent hyperenhancing or hyperdense lymph node in the right common iliac region measures 10 mm in the short axis, increased in size from prior. Retroperitoneal and upper abdominal lymph nodes, the largest in the left periaortic region measuring 10 mm in short axis, unchanged. Vasculature: Normal noncontrast appearance. Abdominal wall: Postsurgical changes of the infraumbilical midline ventral abdominal wall. Bilateral ostomies in the mid abdomen. Skin thickening and mild subcutaneous infiltration noted along the lateral anterior abdominal wall. Musculoskeletal: Degenerative changes of the spine. IMPRESSION: 1. Findings consistent with progression of disease given increased size of multiple solid pulmonary nodules at the lung bases, increase size of the right adrenal nodule, and increased size of left periaortic lymph node. The examination is limited by the absence of intravenous contrast. 2. Questionable increased soft tissue nodularity along the left hemipelvis, which raises concern for local recurrent disease versus exuberant granulation tissue and/or postradiation change. Attention on follow-up. 3. Postsurgical changes of ileal conduit. Left urinary collecting system decompressed with a left ureteral stent. 4. Postsurgical changes of sigmoidectomy, proctectomy, and abdominal peroneal resection. No bowel obstruction. 5. Postsurgical changes of cystoprostatectomy. 6. Interval worsening splenomegaly. 7. Hepatic steatosis. 8. Nonspecific subcutaneous infiltration and skin thickening along the lateral anterior abdominal wall bilaterally. Correlate clinically to exclude cellulitis. Electronically signed by: Luiz Carnes M.D. 10/23/2017 4:22 PM Dictated Date/Time: 10/23/2017 4:07 PM
== END | disposition home or self-care (01) ==
LOC: C.CTS 15:41
PROVIDERS: ATTEND Internal Medicine Hematology & Oncology
DX: C20 Malignant neoplasm of rectum (principal); R91.8 Other nonspecific abnormal finding of lung field; E27.9 Disorder of adrenal gland, unspecified; R59.0 Localized enlarged lymph nodes; R16.1 Splenomegaly, not elsewhere classified; K76.0 Fatty (change of) liver, not elsewhere classified; R93.5 Abnormal findings on diagnostic imaging of other abdominal regions, including retroperitoneum; Z98.890 Other specified postprocedural states; Z96.0 Presence of urogenital implants; Z90.6 Acquired absence of other parts of urinary tract; Z90.79 Acquired absence of other genital organ(s)

== ENCOUNTER → 2017-11-11 | Outpatient (CLI) | payer OTHER ==
[~2017-11-11] MED LIST changes: -DIPH-416 PO; -LVNIS40 INJ; -NITR1CAP32 PO; -NVLGIPEN SC; -PRED10TA PO; -PROC10TA PO; +PROC1TAB5 PO; -ULT50 PO; -VNTHFA/IN INH
[2017-11-11 10:32] LABS: HEMOGLOBIN 9.8 g/dL (14.0-18.0); MEAN CELL VOLUME 85.8 fL (80-100); MEAN CORPUSCULAR HEMOGLOBIN 26.3 pg (25-34); MEAN CORPUSCULAR HGB CONC 30.6 g/dl (32-36); MEAN PLATELET VOLUME 9.4 fL (7.4-10.4); PLATELET COUNT 234 K/uL (130-400); RED CELL DISTRIBUTION WIDTH CV 16.1 % (11.5-14.5); WHITE BLOOD COUNT 6.11 K/uL (4.8-10.8)
[2017-11-11 10:57] LABS: ALBUMIN 3.3 gm/dl (3.4-5.0); ALT/SGPT 12 U/L (12-78); AST/SGOT 10 U/L (15-37); BLOOD UREA NITROGEN 14 mg/dl (7-18); CARBON DIOXIDE 22 mmol/L (21-32); CREATININE 1.37 mg/dl (0.60-1.40); GLUCOSE 224 mg/dl (70-99); POTASSIUM 4.6 mmol/L (3.5-5.1); SODIUM 136 mmol/L (136-145)
[2017-11-11 10:59] LABS: ALKALINE PHOSPHATASE 104 U/L (45-117); TOTAL PROTEIN 8.2 gm/dl (6.4-8.2)
--- NOTE | 2017-11-11 11:19 | DIAGNOSTIC IMAGING REPORT ---
EXAMINATION: RENAL ULTRASOUND CLINICAL HISTORY: KIDNEY DISEASE COMPARISON STUDY: CT scan dated 10/23/2017 FINDINGS: The right kidney measures 9.6 cm. The left kidney measures 13.5 cm. There is no evidence of hydronephrosis. There are no renal masses. There is an 8 x 7 x 5 mm right adrenal mass. The bladder surgically absent. IMPRESSION : 1. 8 x 7 x 5 mm right adrenal mass 2. No renal masses identified. No evidence of hydronephrosis 3. Surgically absent bladder Electronically signed by: Dedrick Dow M.D. 11/11/2017 11:18 AM Dictated Date/Time: 11/11/2017 11:13 AM
== END | disposition home or self-care (01) ==
LOC: C.ULTR 09:16
PROVIDERS: ATTEND Internal Medicine Nephrology
DX: D50.0 Iron deficiency anemia secondary to blood loss (chronic) (principal); N18.3 Chronic kidney disease, stage 3 (moderate); R80.9 Proteinuria, unspecified; N28.89 Other specified disorders of kidney and ureter

== ENCOUNTER → 2018-01-05 | Outpatient (CLI) | payer OTHER ==
[2018-01-05 17:36] LABS: BASO % 0.3 %; BASO ABS # 0.02 K/uL (0-0.2); EOS % 1.9 %; EOS ABS # 0.14 K/uL (0-0.5); HEMOGLOBIN 10.4 g/dL (14.0-18.0); IG# 0.03 K/uL (0.00-0.02); LYMPH % 14.3 %; LYMPH ABS # 1.06 K/uL (1.2-3.4); MEAN CELL VOLUME 74.5 fL (80-100); MEAN CORPUSCULAR HEMOGLOBIN 23.5 pg (25-34); MEAN CORPUSCULAR HGB CONC 31.5 g/dl (32-36); MEAN PLATELET VOLUME 8.9 fL (7.4-10.4); MONO % 6.7 %; NEUT % 76.4 %; NEUT ABS # 5.66 K/uL (1.4-6.5); PLATELET COUNT 480 K/uL (130-400); RED CELL DISTRIBUTION WIDTH SD 39.6 fL (36.4-46.3); WHITE BLOOD COUNT 7.41 K/uL (4.8-10.8)
[2018-01-05 17:51] LABS: ALBUMIN 3.3 gm/dl (3.4-5.0); ALT/SGPT 20 U/L (12-78); BLOOD UREA NITROGEN 30 mg/dl (7-18); CALCIUM 10.2 mg/dl (8.5-10.1); CARBON DIOXIDE 19 mmol/L (21-32); CREATININE 1.69 mg/dl (0.60-1.40); GLUCOSE 244 mg/dl (70-99); POTASSIUM 4.6 mmol/L (3.5-5.1); SODIUM 130 mmol/L (136-145)
[2018-01-05 18:02] LABS: ALKALINE PHOSPHATASE 87 U/L (45-117); AST/SGOT 12 U/L (15-37); TOTAL PROTEIN 8.8 gm/dl (6.4-8.2)
== END | disposition home or self-care (01) ==
LOC: C.LABBFT 13:58
PROVIDERS: ATTEND Physician Assistant Medical
DX: R42 Dizziness and giddiness (principal)

== ENCOUNTER 2018-01-24 16:32 | Inpatient (IN) | payer OTHER ==
[~2018-01-24] VITALS: Ht 193 cm; Wt 91.8 kg
[2018-01-24] MEDS ORDERED: FAMOTIDINE 20MG/5ML IV PUSH IV STA (16:40)
[2018-01-24] MEDS ORDERED: METOCLOPRAMIDE HCL INJ 5 MG/ML 2 ML VIAL IV STA (16:40)
[2018-01-24] MEDS ORDERED: SODIUM CHLORIDE 0.9% 1000ML 1,000 ML IV STA ×2 (16:40→21:03)
[2018-01-24 16:56] LABS: BASO % 0.2 %; BASO ABS # 0.02 K/uL (0-0.2); EOS % 0.3 %; EOS ABS # 0.04 K/uL (0-0.5); HEMATOCRIT 32.4 % (42-52); HEMOGLOBIN 10.1 g/dL (14.0-18.0); IG# 0.06 K/uL (0.00-0.02); LYMPH % 7.8 %; LYMPH ABS # 1.01 K/uL (1.2-3.4); MEAN CELL VOLUME 73.5 fL (80-100); MEAN CORPUSCULAR HEMOGLOBIN 22.9 pg (25-34); MEAN CORPUSCULAR HGB CONC 31.2 g/dl (32-36); MEAN PLATELET VOLUME 9.5 fL (7.4-10.4); MONO % 8.5 %; NEUT % 82.7 %; NEUT ABS # 10.67 K/uL (1.4-6.5); PLATELET COUNT 490 K/uL (130-400); RED CELL DISTRIBUTION WIDTH CV 17.1 % (11.5-14.5); RED CELL DISTRIBUTION WIDTH SD 45.8 fL (36.4-46.3)
[2018-01-24] MEDS ORDERED: NITR1CAP32 PO (17:01)
--- NOTE | 2018-01-24 17:04 | EMERGENCY ROOM VISIT NOTE ---
History Report prepared by Kita: Chilango Ruiz Under the Supervision of: Dr. Shaun De Paz M.D. First contact with patient: 16:35 Chief Complaint: GI ASSESSMENT Stated Complaint: NAUSEA, VOMITING, DIZZINESS History of Present Illness The patient is a 47 year old male who presents to the Emergency Room with complaints of waxing and waning nausea beginning a month ago. The patient states he has also developed a headache. He reports he was evaluated by his PCP and was told he had a low blood pressure and he needed to eat more. The patient notes he recently lost 10 pounds for no reason. He states he went home and started eating more. The patient reports his nausea became tolerable and was able to walk. He notes it worsened 7 days ago. The patient states laying down and sitting alleviates his nausea. He reports he experiences shortness of breath upon exertion. The patient notes he is experiencing a decreased appetite again, and he is dry heaving. He states he usually empties his ostomy once a day , but he has only been emptying it once a week. The patient reports he has a history of rectal cancer for the past 8 years, and he had a CT scan two months ago. He notes the scan revealed his cancer has metastasized to his lungs. The patient states he had a dose of chemotherapy three weeks ago, and he has not had one since because of his nausea. He reports he had his nausea before his treatment and was told they are not related. The patient notes he was told his "lungs and lower lobe" are being watched. He states he also has a nephrostomy because his left kidney is only operating at 62 percent. The patient reports he is supposed to start chemotherapy again this week, but it is dependent on how he feels. He notes he is supposed to receive 8 treatments every Thursday, have a break for 2 weeks, and then receive 8 treatments again. The patient states his local oncologist is Dr. Chicas, and his oncologist at [place] is Dr. Santillan. He denies vomiting, chest pain, taking blood thinners, fevers, chills, and abdominal pain. Source of History: patient Onset: month ago Quality: other (nausea) Timing: waxes/wanes Modifying Factors (Relieving): other (lying down and sitting) Associated Symptoms: + headache, + SOB (upon exertion), No fevers, No chills , No chest pain, No vomiting, No abdominal pain Note: Associated symptoms: decreased appetite, dry heaves Review of Systems See HPI for pertinent positives and negatives. A total of ten systems were reviewed and were otherwise negative. 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 Family History Cancer Diabetes mellitus Social History Smoking Status: Never Smoker Alcohol Use: occasionally Drug Use: none Marital Status: single Housing Status: lives with family Occupation Status: employed Current/Historical Medications Scheduled Atorvastatin (Lipitor), 20 MG PO HS Dronabinol (Marinol), 5 MG PO BID Gabapentin (Neurontin), 300 MG PO TID Insulin Detemir (Levemir), 100 UNITS SC HS Insulin Lispro (Human) (Humalog), 16 SC AC Nitrofurantoin Macrocrystals (Macrodantin), 100 MG PO DAILY Olanzapine (Zyprexa), 10 MG PO DAILY Scheduled PRN Haloperidol (Haldol), 0.5 MG PO DAILY PRN for Nausea Lorazepam (Ativan), 0.5 MG PO DAILY PRN for Anxiety Ondansetron (Ondansetron HCl), 8 MG PO Q8H PRN for Nausea Prochlorperazine Maleate (Compazine), 10 MG PO Q6H PRN for Nausea Allergies Coded Allergies: No Known Allergies (Verified , 01/24/18) Physical Exam Vital Signs Date Time Temp Pulse Resp B/P (MAP) Pulse Ox O2 Delivery O2 Flow Rate FiO2 01/24/18 21:29 102 18 105/59 99 Room Air 01/24/18 21:18 106 01/24/18 19:54 105 18 107/60 99 Room Air 01/24/18 18:33 109 18 131/76 99 Room Air 01/24/18 17:13 103 01/24/18 16:39 36.3 122 18 115/74 100 Room Air Physical Exam GENERAL: Awake, alert, fatigued, uncomfortable-appearing. HENT: Normocephalic, atraumatic. Oropharynx with dry and cracked mucous membranes, otherwise normal. EYES: Normal conjunctiva. Sclera non-icteric. NECK: Supple. No nuchal rigidity. FROM. No JVD. RESPIRATORY: Clear to auscultation. CARDIAC: Regular rate, normal rhythm. Extremities warm and well perfused. Pulses equal. ABDOMEN: Soft, non-distended. No tenderness to palpation. No rebound or guarding. No masses. Nephrostomy and ileostomy sites were clean, dry, and intact. RECTAL: Deferred. MUSCULOSKELETAL: Chest examination reveals no tenderness. The back is symmetrical on inspection without obvious abnormality. There is no CVA tenderness to palpation. No joint edema. LOWER EXTREMITIES: Calves are equal size bilaterally and non-tender. No edema. No discoloration. NEURO: Normal sensorium. No sensory or motor deficits noted. SKIN: No rash or jaundice noted. Medical Decision & Procedures ER Provider Diagnostic Interpretation: Radiology results as stated below per my review and radiologist interpretation: SINGLE VIEW CHEST CLINICAL HISTORY: Generalized abdominal pain. FINDINGS: An AP, portable, upright chest radiograph is compared to study dated 09/09/2017 and correlated with chest CT dated 10/23/2017. The examination is degraded by portable technique and patient rotation. A left subclavian central venous infusion port is unchanged in position. The cardiomediastinal silhouette is unremarkable. A 1.5 cm nodule at the right lung bases consistent with the patient's history of metastatic disease. No airspace consolidation or pleural effusion is identified. No pneumothorax is seen. The bony thorax is grossly intact. IMPRESSION: No acute cardiopulmonary abnormality. Electronically signed by: Rafa Coronel M.D. 01/24/2018 5:24 PM Dictated Date/Time: 01/24/2018 5:[address] SCAN OF THE CHEST, ABDOMEN, AND PELVIS WITHOUT IV CONTRAST CLINICAL HISTORY: Dyspnea. Nausea and vomiting. Rectal carcinoma. COMPARISON STUDY: CT scan of the chest, abdomen, and pelvis dated 10/23/2017. Chest CT dated 05/07/2006. TECHNIQUE: CT scan of the chest, abdomen, and pelvis was performed from the thoracic inlet to the proximal femora. Images are reviewed in the axial, sagittal, and coronal planes. IV contrast was not administered as per the referring clinician. Note that the examination was performed in significantly suboptimal fashion without IV contrast. Oral contrast was utilized. Automated dose control exposure was utilized. A dose lowering technique was utilized adhering to the principles of ALARA. CT DOSE: 981.53 mGy.cm FINDINGS: CHEST: Thyroid: Imaged portions of the thyroid gland are enlarged and heterogeneous. Numerous coarse calcifications are identified. Thoracic aorta: The thoracic aorta is normal in caliber and demonstrates standard 3-vessel arch anatomy. A left subclavian central venous infusion port is in place. Heart: The heart is normal in size and configuration, and without pericardial effusion. Lungs and pleural spaces: There are numerous (at least 15) pulmonary metastases identified. These have minimally increased in size from the 10/23/2017 examination. The largest lesions are seen at the left apex on image #62 measuring 1.4 cm, and the right upper lobe on image #101 measuring 1.6 cm, in the right lower lobe on image #177 measuring 1.6 cm. There is no airspace consolidation or pleural effusion. The trachea and central airways are clear. Mediastinum: There is no mediastinal lymphadenopathy. [place]: Not well assessed without IV contrast. There is a calcified left hilar node. Axillae: There is no axillary lymphadenopathy. Bony thorax: No lytic or blastic lesions are identified. ABDOMEN AND PELVIS: Liver: The unenhanced liver is normal in size, contour, and attenuation. There is no intrahepatic or ductal dilatation. Gallbladder: Unremarkable. Spleen: The spleen is enlarged, measuring 17.0 cm and length. Pancreas: The unenhanced pancreas is moderately atrophic. Coarse calcifications are seen in the region of the pancreatic head. Adrenal glands: There are calcified splenic granulomas. A right adrenal mass has modestly increased in size from 10/23/2017, now measuring 7.5 x 5.2 cm (previously measuring 7.1 x 4.8 cm). There is mild thickening of the left adrenal gland without focal lesion seen. Kidneys: There is slightly asymmetric cortical atrophy of the left kidney as compared to the right. A left ureteral stent is in place and extends 2 an ileal conduit. There is only minimal fullness of the left renal collecting system without hydronephrosis. No renal calculi are identified. There is no evidence of contour deforming mass lesion. Mild urothelial thickening of the left renal pelvis is nonspecific and likely related to the presence of an indwelling stent. Abdominal vasculature: The abdominal aorta is normal in course and caliber. Bowel: There are postoperative changes from rectosigmoid colon resection with left lower quadrant colostomy. An ileal conduit has been created and placed in the right lower quadrant. No bowel obstruction is identified. The appendix is well-visualized and normal. Peritoneum: There is no intraperitoneal free air or abdominal ascites. Lymphadenopathy: A left periaortic node on image #303 has modestly increased in size, now measuring 2.6 x 1.2 cm. A calcified right iliac chain node on image #346 has minimally increased in size measuring 1.4 cm in short axis. Calcification may be treatment related. Enlarged mesenteric node is seen on image #379 and measures 1.8 x 1.7 cm. Pelvic viscera: Presacral an posterior pelvic sidewall soft tissue thickening is nonspecific and may be treatment related. The bladder and prostate are surgically absent. Skeletal structures: There is mild lumbosacral spondylosis. No lytic or blastic lesions are seen. Sclerotic change is noted in the sacroiliac joints. IMPRESSION: 1. Significantly suboptimal examination without IV contrast 2. There is no acute cardiopulmonary abnormality. 3. There are no acute infectious or inflammatory findings in the abdomen or pelvis. 4. There has been modest progression of pulmonary metastatic disease as compared to 10/23/2017. 5. There has been modest progression of intra-abdominal metastatic disease as compared to 10/23/2017, with modest enlargement of a right adrenal mass as well as mildly increased size of retroperitoneal and mesenteric lymph nodes. 6. There are postoperative changes from rectosigmoid resection with left lower quadrant colostomy, cystectomy and prostatectomy, and right lower quadrant ileal conduit. No bowel obstruction is seen. 7. A left ureteral stent is in place. There is no left-sided hydronephrosis. 8. Mild urothelial thickening in the left renal pelvis is nonspecific and likely due to the presence of an indwelling stent. 8. Splenomegaly. 9. Additional findings as above. Electronically signed by: Rafa Coronel M.D. 01/24/2018 8:45 PM Dictated Date/Time: 01/24/2018 8:25 PM Laboratory Results 01/24/18 16:45 Red Blood Count 4.41, Mean Corpuscular Volume 73.5, Mean Corpuscular Hemoglobin 22.9, Mean Corpuscular Hemoglobin Concent 31.2, Mean Platelet Volume 9.5, Neutrophils (%) (Auto) 82.7, Lymphocytes (%) (Auto) 7.8, Monocytes (%) (Auto) 8.5, Eosinophils (%) (Auto) 0.3, Basophils (%) (Auto) 0.2, Neutrophils # (Auto) 10.67, Lymphocytes # (Auto) 1.01, Monocytes # (Auto) 1.10, Eosinophils # (Auto) 0.04, Basophils # (Auto) 0.02 01/24/18 16:45 Test 01/24/18 16:45 01/24/18 16:50 01/24/18 17:30 White Blood Count 12.90 K/uL (4.8-10.8) Red Blood Count 4.41 M/uL (4.7-6.1) Hemoglobin 10.1 g/dL (14.0-18.0) Hematocrit 32.4 % (42-52) Mean Corpuscular Volume 73.5 fL (80-100) Mean Corpuscular Hemoglobin 22.9 pg (25-34) Mean Corpuscular Hemoglobin Concent 31.2 g/dl (32-36) Platelet Count 490 K/uL (130-400) Mean Platelet Volume 9.5 fL (7.4-10.4) Neutrophils (%) (Auto) 82.7 % Lymphocytes (%) (Auto) 7.8 % Monocytes (%) (Auto) 8.5 % Eosinophils (%) (Auto) 0.3 % Basophils (%) (Auto) 0.2 % Neutrophils # (Auto) 10.67 K/uL (1.4-6.5) Lymphocytes # (Auto) 1.01 K/uL (1.2-3.4) Monocytes # (Auto) 1.10 K/uL (0.11-0.59) Eosinophils # (Auto) 0.04 K/uL (0-0.5) Basophils # (Auto) 0.02 K/uL (0-0.2) RDW Standard Deviation 45.8 fL (36.4-46.3) RDW Coefficient of Variation 17.1 % (11.5-14.5) Immature Granulocyte % (Auto) 0.5 % Immature Granulocyte # (Auto) 0.06 K/uL (0.00-0.02) Prothrombin Time 11.8 SECONDS (9.0-12.0) Prothromb Time International Ratio 1.1 (0.9-1.1) Anion Gap 14.0 mmol/L (3-11) Est Creatinine Clear Calc Drug Dose 62.6 ml/min Estimated GFR () 51.5 Estimated GFR (Non- 44.4 BUN/Creatinine Ratio 18.5 (10-20) Osmolality 296 mOsm/kg (280-300) Calcium Level 9.6 mg/dl (8.5-10.1) Phosphorus Level 4.5 mg/dl (2.5-4.9) Magnesium Level 1.8 mg/dl (1.8-2.4) Total Bilirubin 1.2 mg/dl (0.2-1) Direct Bilirubin 0.3 mg/dl (0-0.2) Aspartate Amino Transf (AST/SGOT) 10 U/L (15-37) Alanine Aminotransferase (ALT/SGPT) 13 U/L (12-78) Alkaline Phosphatase 84 U/L (45-117) Troponin I < 0.015 ng/ml (0-0.045) Total Protein 9.1 gm/dl (6.4-8.2) Albumin 2.8 gm/dl (3.4-5.0) Lipase 96 U/L (73-393) Beta-Hydroxybutyric Acid 4.29 mg/dL (0.2-2.81) Bedside Lactic Acid Venous 2.70 mmol/L (0.90-1.70) Urine Color YELLOW Urine Appearance TURBID (CLEAR) Urine pH >= 9.0 (4.5-7.5) Urine Specific [place] 1.016 (1.000-1.030) Urine Protein 1+ (NEG) Urine Glucose (UA) TRACE (NEG) Urine Ketones NEG (NEG) Urine Occult Blood 1+ (NEG) Urine Nitrite NEG (NEG) Urine Bilirubin NEG (NEG) Urine Urobilinogen NEG (NEG) Urine Leukocyte Esterase LARGE (NEG) Urine WBC (Auto) >30 /hpf (0-5) Urine RBC (Auto) 5-10 /hpf (0-4) Urine Hyaline Casts (Auto) 0 /lpf (0-5) Urine Epithelial Cells (Auto) >30 /lpf (0-5) Urine Bacteria (Auto) 2+ (NEG) Urine Crystals TRIPLE PHOSPHATE Urine Pathogenic Casts /lpf (0) Urine Yeast (Auto) (NONE PRSENT) Urine Osmolality 525 mOms/kg (500-800) Laboratory results reviewed by me Medications Administered Medications (Trade) Dose Ordered Sig/Rosie Route Start Time Stop Time Status Last Admin Dose Admin Sodium Chloride 1,000 ml @ 999 mls/hr Q1H1M STAT IV 01/24/18 16:40 01/24/18 17:40 DC 01/24/18 17:04 999 MLS/HR Metoclopramide HCl (Reglan Inj) 10 mg NOW STAT IV 01/24/18 16:40 01/24/18 16:47 DC 01/24/18 17:05 10 MG Famotidine (Pepcid 20mg Iv Push) 20 mg ONE STAT IV 01/24/18 16:40 01/24/18 16:47 DC 01/24/18 17:05 20 MG Ondansetron HCl (Zofran Inj) 4 mg NOW STAT IV 01/24/18 17:58 01/24/18 17:59 DC 01/24/18 17:58 4 MG Sodium Chloride 1,000 ml @ 999 mls/hr Q1H1M STAT IV 01/24/18 21:03 01/24/18 22:03 DC 01/24/18 21:28 999 MLS/HR ECG Per My Interpretation Indication: nausea Rate (beats per minute): 111 Rhythm: sinus tachycardia Findings: no acute ischemic change, left axis deviation ED Course 1640: The patient was evaluated in room B06. A complete history and physical exam was performed. 2107: Upon reexamination, the patient was resting comfortably. I discussed the test results and treatment plan with him. The patient will be evaluated for further management. 2128: I discussed the patient's case with Dr. Adan, [facility] Hospitalist. The patient will be evaluated for further management and care. Medical Decision I reviewed the patient's past medical history, medications, and the nursing notes as described above. Differential diagnoses includes: dehydration, electrolyte abnormalities, worsening metastatic disease, obstruction, bowel obstruction, pneumonia, and bronchitis. The patient is a 39-year-old gentleman with a past medical history of rectal cancer status post ostomy and nephrostomy with recent recurrence found to have pulmonary metastases attempting to undergo chemotherapy but delayed due to constant nausea and vomiting and weakness per hpi. On arrival the patient is fatigued appearing but no acute distress, afebrile stable vital signs. Patient appears clinically dry. Abdomen soft nontender nondistended with nephrostomy and ileostomy sites clean dry and intact. WBC 12, nonspecific. Creatinine 1.7 near recent baseline. Lactate elevated to 2.7 consistent with the patient's clinically dry appearance. Glucose 300s with some ketosis likely related to the patient's dehydration. Repeat fingerstick ordered and IV fluid hydration continued.. urine does show evidence of infection however he reports that his urine always appears this way given that it is collected in his nephrostomy bag. He is currently on Macrobid. CT chest and abdomen pelvis with oral contrast only negative for any acute infectious process or any gastric obstruction. However, comment is noted of moderate worsening of the patient's known metastatic disease. Patient feeling improved after IV fluid hydration however still feels very weak and lightheaded. thus given the patient's failure to thrive in the setting of his metastatic disease will admit for further management. Of note, patient does not appear toxic/septic rather he appears clinically dry. Thus leukocytosis and mildly elevated lactate likely related to his dehydration. Will defer antibiotics at this time given no clear infectious source. The case was discussed with Dr. Lisa Adan, [facility] hospitalist to admit the patient for further management. Medication Reconcilliation Current Medication List: was personally reviewed by me Blood Pressure Screening Patient's blood pressure: Normal blood pressure Blood pressure disposition: Did not require urgent referral Consults Time Called: 2111 Consulting Physician: Dr. Adan [facility] Hospitalist Returned Call: [phone] I discussed the patient's case with Dr. Adan [facility] Hospitalist. The patient will be evaluated for further management and care. Impression Primary Impression: Dehydration Additional Impressions: Elevated lactic acid level Failure to thrive Scribe Attestation The scribe's documentation has been prepared under my direction and personally reviewed by me in its entirety. I confirm that the note above accurately reflects all work, treatment, procedures, and medical decision making performed by me. Departure Information Dispostion Being Evaluated By Hospitalist Referrals Ozzie Cohen M.D. (PCP) Patient Instructions My [facility] Problem Qualifiers
[2018-01-24 17:14] LABS: ALBUMIN 2.8 gm/dl (3.4-5.0); ALT/SGPT 13 U/L (12-78); BLOOD UREA NITROGEN 33 mg/dl (7-18); CALCIUM 9.6 mg/dl (8.5-10.1); CARBON DIOXIDE 19 mmol/L (21-32); CREATININE 1.77 mg/dl (0.60-1.40); GLUCOSE 319 mg/dl (70-99); LIPASE 96 U/L (73-393); POTASSIUM 4.9 mmol/L (3.5-5.1); SODIUM 130 mmol/L (136-145)
[2018-01-24 17:17] LABS: AST/SGOT 10 U/L (15-37); PHOSPHORUS 4.5 mg/dl (2.5-4.9); TOTAL PROTEIN 9.1 gm/dl (6.4-8.2)
[2018-01-24 17:24] LABS: ALKALINE PHOSPHATASE 84 U/L (45-117)
--- NOTE | 2018-01-24 17:26 | DIAGNOSTIC IMAGING REPORT ---
SINGLE VIEW CHEST CLINICAL HISTORY: Generalized abdominal pain. FINDINGS: An AP, portable, upright chest radiograph is compared to study dated 09/09/2017 and correlated with chest CT dated 10/23/2017. The examination is degraded by portable technique and patient rotation. A left subclavian central venous infusion port is unchanged in position. The cardiomediastinal silhouette is unremarkable. A 1.5 cm nodule at the right lung bases consistent with the patient's history of metastatic disease. No airspace consolidation or pleural effusion is identified. No pneumothorax is seen. The bony thorax is grossly intact. IMPRESSION: No acute cardiopulmonary abnormality. Electronically signed by: Rafa Coronel M.D. 01/24/2018 5:24 PM Dictated Date/Time: 01/24/2018 5:23 PM
[2018-01-24 17:33] LABS: INR 1.1 (0.9-1.1)
[2018-01-24] MEDS ORDERED: ONDANSETRON INJ 2 MG/ML 2 ML VIAL IV STA (17:58)
--- NOTE | 2018-01-24 20:47 | DIAGNOSTIC IMAGING REPORT ---
CT SCAN OF THE CHEST, ABDOMEN, AND PELVIS WITHOUT IV CONTRAST CLINICAL HISTORY: Dyspnea. Nausea and vomiting. Rectal carcinoma. COMPARISON STUDY: CT scan of the chest, abdomen, and pelvis dated 10/23/2017. Chest CT dated 05/07/2006. TECHNIQUE: CT scan of the chest, abdomen, and pelvis was performed from the thoracic inlet to the proximal femora. Images are reviewed in the axial, sagittal, and coronal planes. IV contrast was not administered as per the referring clinician. Note that the examination was performed in significantly suboptimal fashion without IV contrast. Oral contrast was utilized. Automated dose control exposure was utilized. A dose lowering technique was utilized adhering to the principles of ALARA. CT DOSE: 981.53 mGy.cm FINDINGS: CHEST: Thyroid: Imaged portions of the thyroid gland are enlarged and heterogeneous. Numerous coarse calcifications are identified. Thoracic aorta: The thoracic aorta is normal in caliber and demonstrates standard 3-vessel arch anatomy. A left subclavian central venous infusion port is in place. Heart: The heart is normal in size and configuration, and without pericardial effusion. Lungs and pleural spaces: There are numerous (at least 15) pulmonary metastases identified. These have minimally increased in size from the 10/23/2017 examination. The largest lesions are seen at the left apex on image #62 measuring 1.4 cm, and the right upper lobe on image #101 measuring 1.6 cm, in the right lower lobe on image #177 measuring 1.6 cm. There is no airspace consolidation or pleural effusion. The trachea and central airways are clear. Mediastinum: There is no mediastinal lymphadenopathy. [place]: Not well assessed without IV contrast. There is a calcified left hilar node. Axillae: There is no axillary lymphadenopathy. Bony thorax: No lytic or blastic lesions are identified. ABDOMEN AND PELVIS: Liver: The unenhanced liver is normal in size, contour, and attenuation. There is no intrahepatic or ductal dilatation. Gallbladder: Unremarkable. Spleen: The spleen is enlarged, measuring 17.0 cm and length. Pancreas: The unenhanced pancreas is moderately atrophic. Coarse calcifications are seen in the region of the pancreatic head. Adrenal glands: There are calcified splenic granulomas. A right adrenal mass has modestly increased in size from 10/23/2017, now measuring 7.5 x 5.2 cm (previously measuring 7.1 x 4.8 cm). There is mild thickening of the left adrenal gland without focal lesion seen. Kidneys: There is slightly asymmetric cortical atrophy of the left kidney as compared to the right. A left ureteral stent is in place and extends 2 an ileal conduit. There is only minimal fullness of the left renal collecting system without hydronephrosis. No renal calculi are identified. There is no evidence of contour deforming mass lesion. Mild urothelial thickening of the left renal pelvis is nonspecific and likely related to the presence of an indwelling stent. Abdominal vasculature: The abdominal aorta is normal in course and caliber. Bowel: There are postoperative changes from rectosigmoid colon resection with left lower quadrant colostomy. An ileal conduit has been created and placed in the right lower quadrant. No bowel obstruction is identified. The appendix is well-visualized and normal. Peritoneum: There is no intraperitoneal free air or abdominal ascites. Lymphadenopathy: A left periaortic node on image #303 has modestly increased in size, now measuring 2.6 x 1.2 cm. A calcified right iliac chain node on image #346 has minimally increased in size measuring 1.4 cm in short axis. Calcification may be treatment related. Enlarged mesenteric node is seen on image #379 and measures 1.8 x 1.7 cm. Pelvic viscera: Presacral an posterior pelvic sidewall soft tissue thickening is nonspecific and may be treatment related. The bladder and prostate are surgically absent. Skeletal structures: There is mild lumbosacral spondylosis. No lytic or blastic lesions are seen. Sclerotic change is noted in the sacroiliac joints. IMPRESSION: 1. Significantly suboptimal examination without IV contrast 2. There is no acute cardiopulmonary abnormality. 3. There are no acute infectious or inflammatory findings in the abdomen or pelvis. 4. There has been modest progression of pulmonary metastatic disease as compared to 10/23/2017. 5. There has been modest progression of intra-abdominal metastatic disease as compared to 10/23/2017, with modest enlargement of a right adrenal mass as well as mildly increased size of retroperitoneal and mesenteric lymph nodes. 6. There are postoperative changes from rectosigmoid resection with left lower quadrant colostomy, cystectomy and prostatectomy, and right lower quadrant ileal conduit. No bowel obstruction is seen. 7. A left ureteral stent is in place. There is no left-sided hydronephrosis. 8. Mild urothelial thickening in the left renal pelvis is nonspecific and likely due to the presence of an indwelling stent. 8. Splenomegaly. 9. Additional findings as above. Electronically signed by: Rafa Coronel M.D. 01/24/2018 8:45 PM Dictated Date/Time: 01/24/2018 8:25 PM
[2018-01-24] MEDS ORDERED: ONDANSETRON 8 MG TAB PO PRN (21:45)
[2018-01-24] MEDS ORDERED: LORAZEPAM 0.5 MG TAB PO PRN (21:45)
[2018-01-24] MEDS ORDERED: PROCHLORPERAZINE MALEATE 10 MG TAB PO PRN (21:45)
[2018-01-24] MEDS ORDERED: HALOPERIDOL 0.5 MG TAB PO PRN (21:45)
[2018-01-24] MEDS ORDERED: PHARMACY GLYCEMIC MGMT CONSULT STA (22:16)
[2018-01-24] MEDS ORDERED: SODIUM CHLORIDE 0.9% 1000ML 1,000 ML IV SCH (22:30)
[2018-01-24] MEDS ORDERED: ALUMINUM/MAGNESIUM/SIMETH (MAALOX MAX) 30 ML UDC PO PRN (22:30)
[2018-01-24] MEDS ORDERED: GLUCAGON FOR INJ 1 MG VIAL SQ PRN (22:30)
[2018-01-24] MEDS ORDERED: DC ALL PREVIOUSLY ORDERED DIABETES MEDS ONE ×2 (22:30→23:15)
[2018-01-24] MEDS ORDERED: ACETAMINOPHEN 325 MG TAB PO PRN (22:30)
[2018-01-24] MEDS ORDERED: GLUCOSE 10 TABS/TUBE PO PRN (22:30)
[2018-01-24] MEDS ORDERED: GLUCOSE 40% GEL 15 GM TUBE PO PRN (22:30)
[2018-01-24] MEDS ORDERED: MODERATE STRESS LEVEL ONE (23:15)
[2018-01-24] MEDS ORDERED: INSULIN IV INFUSION PROTOCOL SCH (23:26)
--- NOTE | 2018-01-24 23:26 | History and Physical ---
History & Physical Date & Time of Service: Jan 24, 2018 at 21:40 Chief Complaint: Nausea, Vomiting, Dizziness Primary Care Physician: Ozzie Cohen M.D. History of Present Illness Source: patient Mr. Rose is a 47yo C male with prolonged and complicated history of metastatic colon adenocarcinoma. He was diagnosed in May 2010 and was treated with chemotherapy, XRT x 6 weeks and 5-FU. He had a LAR performed on and was treated with FOLFOX from 11/2010-02/2011. He had recurrent metastatic disease and underwent resection of liver metastases and colonic resection. He has a colostomy and urostomy bag in place. He reports 1 month of progressive lightheadedness and dizziness that has acutely worsened in the last week. He was seen by his PCP for the same 2-3 weeks ago and was told that it was secondary to low blood pressure and possible dehydration. He also reports poor appetite with decrease oral intake over the last week. He has had some nausea with one episode of bilious vomiting this evening. He states that he has dizziness/visual disturbances and presyncope when he stands up. Also reports leakage of stool from his anus occurring today. Patient is not having pain, fevers, chills. Denies cough/SOB/wheeze/ abdominal pain. He is having decreased output from his colostomy and urostomy and his urine is darker than usual. He states that his blood sugar this morning was 210 and typically runs 180-220. He has been compliant with his Levemir 100u qHS but has not been taking his Humalog. Past Medical/Surgical History Medical Problems: 1. Colon Cancer 2. Colostomy 3. VERONICA 4. Anemia 5. Complicated UTI 6. Diabetes 7. DIabetic foot ulcer with osteomyelitis 8. Necrotizing fasciitis Past Surgical History LAR Colonic resection Resection of liver mets Amputation of right 4th toe Colostomy Urostomy Family History Cancer Diabetes mellitus Social History Smoking Status: Never Smoker Smokeless Tobacco Use: Yes Alcohol Use: occasionally Drug Use: none Marital Status: single Housing status: lives alone Occupational Status: employed Immunizations History of Influenza Vaccine: Yes Influenza Vaccine Date: Jul 26, 2013 History of Tetanus Vaccine?: utd History of Pneumococcal: Unknown History of Hepatitis B Vaccine: No Allergies Coded Allergies: No Known Allergies (Verified , 01/24/18) Home Medications Scheduled Atorvastatin (Lipitor), 20 MG PO HS Dronabinol (Marinol), 5 MG PO BID Gabapentin (Neurontin), 300 MG PO TID Insulin Detemir (Levemir), 100 UNITS SC HS Insulin Lispro (Human) (Humalog), 16 SC AC Nitrofurantoin Macrocrystals (Macrodantin), 100 MG PO DAILY Olanzapine (Zyprexa), 10 MG PO DAILY Scheduled PRN Haloperidol (Haldol), 0.5 MG PO DAILY PRN for Nausea Lorazepam (Ativan), 0.5 MG PO DAILY PRN for Anxiety Ondansetron (Ondansetron HCl), 8 MG PO Q8H PRN for Nausea Prochlorperazine Maleate (Compazine), 10 MG PO Q6H PRN for Nausea Review of Systems Constitutional: + weight loss (10 pounds in last month - unintentional), + weakness, No fever, No chills, No sweats Eyes: No worsening of vision, No redness, No discharge ENT: No unusual epistaxis, No sore throat, No trouble swallowing Respiratory: No cough, No sputum, No wheezing, No shortness of breath, No dyspnea on exertion Cardiovascular: No chest pain, No edema, No palpitations Abdomen: + nausea, + vomiting, No pain, No diarrhea, No constipation Musculoskeletal: No muscle pain Genitourinary - Male: No hematuria, No dysuria, No urinary frequency, No urinary urgency Physical Exam Vital Signs Date Time Temp Pulse Resp B/P (MAP) Pulse Ox O2 Delivery O2 Flow Rate FiO2 01/24/18 21:29 102 18 105/59 99 Room Air 01/24/18 21:18 106 01/24/18 19:54 105 18 107/60 99 Room Air 01/24/18 18:33 109 18 131/76 99 Room Air 01/24/18 17:13 103 01/24/18 16:39 36.3 122 18 115/74 100 Room Air General - resting comfortably in bed, NAD, chronically ill appearing Skin- warm, dry, rash on back HEENT- NC/AT, PERRL, EOMI, MMM, neck supple, no JVD, dry mucus membranes, no OP lesions Heart - +S1/S2, regular, tachycardic at 102bpm which increased to 128 bpm upon sitting up for exam, no m/r/g Lungs - CTA, no rales/rhonchi or wheezes Abdomen - soft, NT/ND, colostomy in place with minimal output, healthy appearing tissue at ostomy site, no leakage/bleeding/discharge, urostomy bag in place with yellow urine with sediment present Ext -warm, well perfused, no clubbing/cyanosis or edema Neuro - nonfocal Diagnostics Laboratory Results Results Past 24 Hours Test 01/24/18 16:45 01/24/18 16:50 01/24/18 17:30 Range/Units White Blood Count 12.90 4.8-10.8 K/uL Red Blood Count 4.41 4.7-6.1 M/uL Hemoglobin 10.1 14.0-18.0 g/dL Hematocrit 32.4 42-52 % Mean Corpuscular Volume 73.5 80-100 fL Mean Corpuscular Hemoglobin 22.9 25-34 pg Mean Corpuscular Hemoglobin Concent 31.2 32-36 g/dl Platelet Count 490 130-400 K/uL Mean Platelet Volume 9.5 7.4-10.4 fL Neutrophils (%) (Auto) 82.7 % Lymphocytes (%) (Auto) 7.8 % Monocytes (%) (Auto) 8.5 % Eosinophils (%) (Auto) 0.3 % Basophils (%) (Auto) 0.2 % Neutrophils # (Auto) 10.67 1.4-6.5 K/uL Lymphocytes # (Auto) 1.01 1.2-3.4 K/uL Monocytes # (Auto) 1.10 0.11-0.59 K/uL Eosinophils # (Auto) 0.04 0-0.5 K/uL Basophils # (Auto) 0.02 0-0.2 K/uL RDW Standard Deviation 45.8 36.4-46.3 fL RDW Coefficient of Variation 17.1 11.5-14.5 % Immature Granulocyte % (Auto) 0.5 % Immature Granulocyte # (Auto) 0.06 0.00-0.02 K/uL Prothrombin Time 11.8 9.0-12.0 SECONDS Prothromb Time International Ratio 1.1 0.9-1.1 Sodium Level 130 136-145 mmol/L Potassium Level 4.9 3.5-5.1 mmol/L Chloride Level 97 98-107 mmol/L Carbon Dioxide Level 19 21-32 mmol/L Anion Gap 14.0 3-11 mmol/L Blood Urea Nitrogen 33 7-18 mg/dl Creatinine 1.77 0.60-1.40 mg/dl Est Creatinine Clear Calc Drug Dose 62.6 ml/min Estimated GFR () 51.5 Estimated GFR (Non- 44.4 BUN/Creatinine Ratio 18.5 10-20 Random Glucose 319 70-99 mg/dl Calcium Level 9.6 8.5-10.1 mg/dl Phosphorus Level 4.5 2.5-4.9 mg/dl Magnesium Level 1.8 1.8-2.4 mg/dl Total Bilirubin 1.2 0.2-1 mg/dl Direct Bilirubin 0.3 0-0.2 mg/dl Aspartate Amino Transf (AST/SGOT) 10 15-37 U/L Alanine Aminotransferase (ALT/SGPT) 13 12-78 U/L Alkaline Phosphatase 84 45-117 U/L Troponin I < 0.015 0-0.045 ng/ml Total Protein 9.1 6.4-8.2 gm/dl Albumin 2.8 3.4-5.0 gm/dl Lipase 96 73-393 U/L Beta-Hydroxybutyric Acid 4.29 0.2-2.81 mg/dL Bedside Lactic Acid Venous 2.70 0.90-1.70 mmol/L Urine Color YELLOW Urine Appearance TURBID CLEAR Urine pH >= 9.0 4.5-7.5 Urine Specific [place] 1.016 1.000-1.030 Urine Protein 1+ NEG Urine Glucose (UA) TRACE NEG Urine Ketones NEG NEG Urine Occult Blood 1+ NEG Urine Nitrite NEG NEG Urine Bilirubin NEG NEG Urine Urobilinogen NEG NEG Urine Leukocyte Esterase LARGE NEG Urine WBC (Auto) >30 0-5 /hpf Urine RBC (Auto) 5-10 0-4 /hpf Urine Hyaline Casts (Auto) 0 0-5 /lpf Urine Epithelial Cells (Auto) >30 0-5 /lpf Urine Bacteria (Auto) 2+ NEG Urine Crystals TRIPLE PHOSPHATE NONE PRSENT Urine Pathogenic Casts 0 /lpf Urine Yeast (Auto) NONE PRSENT Microbiology Results 01/24/18 Urine Culture, Received Pending Diagnostic Radiology CT SCAN OF THE CHEST, ABDOMEN, AND PELVIS WITHOUT IV CONTRAST CLINICAL HISTORY: Dyspnea. Nausea and vomiting. Rectal carcinoma. COMPARISON STUDY: CT scan of the chest, abdomen, and pelvis dated 10/23/2017. Chest CT dated 05/07/2006. TECHNIQUE: CT scan of the chest, abdomen, and pelvis was performed from the thoracic inlet to the proximal femora. Images are reviewed in the axial, sagittal, and coronal planes. IV contrast was not administered as per the referring clinician. Note that the examination was performed in significantly suboptimal fashion without IV contrast. Oral contrast was utilized. Automated dose control exposure was utilized. A dose lowering technique was utilized adhering to the principles of ALARA. CT DOSE: 981.53 mGy.cm FINDINGS: CHEST: Thyroid: Imaged portions of the thyroid gland are enlarged and heterogeneous. Numerous coarse calcifications are identified. Thoracic aorta: The thoracic aorta is normal in caliber and demonstrates standard 3-vessel arch anatomy. A left subclavian central venous infusion port is in place. Heart: The heart is normal in size and configuration, and without pericardial effusion. Lungs and pleural spaces: There are numerous (at least 15) pulmonary metastases identified. These have minimally increased in size from the 10/23/2017 examination. The largest lesions are seen at the left apex on image #62 measuring 1.4 cm, and the right upper lobe on image #101 measuring 1.6 cm, in the right lower lobe on image #177 measuring 1.6 cm. There is no airspace consolidation or pleural effusion. The trachea and central airways are clear. Mediastinum: There is no mediastinal lymphadenopathy. Viridiana: Not well assessed without IV contrast. There is a calcified left hilar node. Axillae: There is no axillary lymphadenopathy. Bony thorax: No lytic or blastic lesions are identified. ABDOMEN AND PELVIS: Liver: The unenhanced liver is normal in size, contour, and attenuation. There is no intrahepatic or ductal dilatation. Gallbladder: Unremarkable. Spleen: The spleen is enlarged, measuring 17.0 cm and length. Pancreas: The unenhanced pancreas is moderately atrophic. Coarse calcifications are seen in the region of the pancreatic head. Adrenal glands: There are calcified splenic granulomas. A right adrenal mass has modestly increased in size from 10/23/2017, now measuring 7.5 x 5.2 cm (previously measuring 7.1 x 4.8 cm). There is mild thickening of the left adrenal gland without focal lesion seen. Kidneys: There is slightly asymmetric cortical atrophy of the left kidney as compared to the right. A left ureteral stent is in place and extends 2 an ileal conduit. There is only minimal fullness of the left renal collecting system without hydronephrosis. No renal calculi are identified. There is no evidence of contour deforming mass lesion. Mild urothelial thickening of the left renal pelvis is nonspecific and likely related to the presence of an indwelling stent. Abdominal vasculature: The abdominal aorta is normal in course and caliber. Bowel: There are postoperative changes from rectosigmoid colon resection with left lower quadrant colostomy. An ileal conduit has been created and placed in the right lower quadrant. No bowel obstruction is identified. The appendix is well-visualized and normal. Peritoneum: There is no intraperitoneal free air or abdominal ascites. Lymphadenopathy: A left periaortic node on image #303 has modestly increased in size, now measuring 2.6 x 1.2 cm. A calcified right iliac chain node on image #346 has minimally increased in size measuring 1.4 cm in short axis. Calcification may be treatment related. Enlarged mesenteric node is seen on image #379 and measures 1.8 x 1.7 cm. Pelvic viscera: Presacral an posterior pelvic sidewall soft tissue thickening is nonspecific and may be treatment related. The bladder and prostate are surgically absent. Skeletal structures: There is mild lumbosacral spondylosis. No lytic or blastic lesions are seen. Sclerotic change is noted in the sacroiliac joints. IMPRESSION: 1. Significantly suboptimal examination without IV contrast 2. There is no acute cardiopulmonary abnormality. 3. There are no acute infectious or inflammatory findings in the abdomen or pelvis. 4. There has been modest progression of pulmonary metastatic disease as compared to 10/23/2017. 5. There has been modest progression of intra-abdominal metastatic disease as compared to 10/23/2017, with modest enlargement of a right adrenal mass as well as mildly increased size of retroperitoneal and mesenteric lymph nodes. 6. There are postoperative changes from rectosigmoid resection with left lower quadrant colostomy, cystectomy and prostatectomy, and right lower quadrant ileal conduit. No bowel obstruction is seen. 7. A left ureteral stent is in place. There is no left-sided hydronephrosis. 8. Mild urothelial thickening in the left renal pelvis is nonspecific and likely due to the presence of an indwelling stent. 8. Splenomegaly. 9. Additional findings as above. CT SCAN OF THE CHEST, ABDOMEN, AND PELVIS WITHOUT IV CONTRAST CLINICAL HISTORY: Dyspnea. Nausea and vomiting. Rectal carcinoma. COMPARISON STUDY: CT scan of the chest, abdomen, and pelvis dated 10/23/2017. Chest CT dated 05/07/2006. TECHNIQUE: CT scan of the chest, abdomen, and pelvis was performed from the thoracic inlet to the proximal femora. Images are reviewed in the axial, sagittal, and coronal planes. IV contrast was not administered as per the referring clinician. Note that the examination was performed in significantly suboptimal fashion without IV contrast. Oral contrast was utilized. Automated dose control exposure was utilized. A dose lowering technique was utilized adhering to the principles of ALARA. CT DOSE: 981.53 mGy.cm FINDINGS: CHEST: Thyroid: Imaged portions of the thyroid gland are enlarged and heterogeneous. Numerous coarse calcifications are identified. Thoracic aorta: The thoracic aorta is normal in caliber and demonstrates standard 3-vessel arch anatomy. A left subclavian central venous infusion port is in place. Heart: The heart is normal in size and configuration, and without pericardial effusion. Lungs and pleural spaces: There are numerous (at least 15) pulmonary metastases identified. These have minimally increased in size from the 10/23/2017 examination. The largest lesions are seen at the left apex on image #62 measuring 1.4 cm, and the right upper lobe on image #101 measuring 1.6 cm, in the right lower lobe on image #177 measuring 1.6 cm. There is no airspace consolidation or pleural effusion. The trachea and central airways are clear. Mediastinum: There is no mediastinal lymphadenopathy. Viridiana: Not well assessed without IV contrast. There is a calcified left hilar node. Axillae: There is no axillary lymphadenopathy. Bony thorax: No lytic or blastic lesions are identified. ABDOMEN AND PELVIS: Liver: The unenhanced liver is normal in size, contour, and attenuation. There is no intrahepatic or ductal dilatation. Gallbladder: Unremarkable. Spleen: The spleen is enlarged, measuring 17.0 cm and length. Pancreas: The unenhanced pancreas is moderately atrophic. Coarse calcifications are seen in the region of the pancreatic head. Adrenal glands: There are calcified splenic granulomas. A right adrenal mass has modestly increased in size from 10/23/2017, now measuring 7.5 x 5.2 cm (previously measuring 7.1 x 4.8 cm). There is mild thickening of the left adrenal gland without focal lesion seen. Kidneys: There is slightly asymmetric cortical atrophy of the left kidney as compared to the right. A left ureteral stent is in place and extends 2 an ileal conduit. There is only minimal fullness of the left renal collecting system without hydronephrosis. No renal calculi are identified. There is no evidence of contour deforming mass lesion. Mild urothelial thickening of the left renal pelvis is nonspecific and likely related to the presence of an indwelling stent. Abdominal vasculature: The abdominal aorta is normal in course and caliber. Bowel: There are postoperative changes from rectosigmoid colon resection with left lower quadrant colostomy. An ileal conduit has been created and placed in the right lower quadrant. No bowel obstruction is identified. The appendix is well-visualized and normal. Peritoneum: There is no intraperitoneal free air or abdominal ascites. Lymphadenopathy: A left periaortic node on image #303 has modestly increased in size, now measuring 2.6 x 1.2 cm. A calcified right iliac chain node on image #346 has minimally increased in size measuring 1.4 cm in short axis. Calcification may be treatment related. Enlarged mesenteric node is seen on image #379 and measures 1.8 x 1.7 cm. Pelvic viscera: Presacral an posterior pelvic sidewall soft tissue thickening is nonspecific and may be treatment related. The bladder and prostate are surgically absent. Skeletal structures: There is mild lumbosacral spondylosis. No lytic or blastic lesions are seen. Sclerotic change is noted in the sacroiliac joints. IMPRESSION: 1. Significantly suboptimal examination without IV contrast 2. There is no acute cardiopulmonary abnormality. 3. There are no acute infectious or inflammatory findings in the abdomen or pelvis. 4. There has been modest progression of pulmonary metastatic disease as compared to 10/23/2017. 5. There has been modest progression of intra-abdominal metastatic disease as compared to 10/23/2017, with modest enlargement of a right adrenal mass as well as mildly increased size of retroperitoneal and mesenteric lymph nodes. 6. There are postoperative changes from rectosigmoid resection with left lower quadrant colostomy, cystectomy and prostatectomy, and right lower quadrant ileal conduit. No bowel obstruction is seen. 7. A left ureteral stent is in place. There is no left-sided hydronephrosis. 8. Mild urothelial thickening in the left renal pelvis is nonspecific and likely due to the presence of an indwelling stent. 8. Splenomegaly. 9. Additional findings as above. SINGLE VIEW CHEST CLINICAL HISTORY: Generalized abdominal pain. FINDINGS: An AP, portable, upright chest radiograph is compared to study dated 09/09/2017 and correlated with chest CT dated 10/23/2017. The examination is degraded by portable technique and patient rotation. A left subclavian central venous infusion port is unchanged in position. The cardiomediastinal silhouette is unremarkable. A 1.5 cm nodule at the right lung bases consistent with the patient's history of metastatic disease. No airspace consolidation or pleural effusion is identified. No pneumothorax is seen. The bony thorax is grossly intact. IMPRESSION: No acute cardiopulmonary abnormality. Electronically signed by: Rfaa Coronel M.D. 01/24/2018 5:24 PM Impression Assessment and Plan 47yo C male with prolonged and complicated history of metastatic adenocarcinoma of the colon presents with dehydration, hyperglycemia and FTT 1. Hyperglycemia/DKA - patient with blood sugar presently 319. He states that he typically runs 180-220. Last AIC=9.7 in August 2017 indicating poor glycemic control. Patient does have a mild anion gap at 14 and positive beta- hydroxybutyric acid. ?True DKA vs dehydration in setting of malignancy. -Will manage with insulin gtt per protocol -Check HgAIC -Check VBG -Aggressive IVF hydration -Continue Neurontin 300mg po TID for neuropathy 2. CKD - Cr=1.77 at present. This is near patient's baseline renal function ( 2.07 and 1.69 in the past). CrCl=62.6. Continue to monitor. Renal dosing where appropriate. 3. Leukocytosis - Patient is afebrile, mildly tachycardic. No clear source of infection at this time. -Await results of blood culture and urine culture -Continue suppressive dose of Macrodantin 4. Rectal cancer - CT imaging reveals increased metastatic burden. Patient follows with Oncology [facility] in [place]. He is to have chemo on Thursday -Continue PRN Zofran and Reglan for nausea -Continue Marinol 5mg po BID -Consider consultation with Nutrition services 5. F/E/N - NSS at 150mL/hr x 2 liters, monitor electrolytes per DKA protocol and replete as needed, NPO for now 6. Ppx - Lovenox 40 7. Code - Full per discussion with patient 8. Dispo - Admit to medicine for hyperglycemia/DKA Resuscitation Status FULL VTE Prophylaxis Will order VTE Prophylaxis: Yes
[2018-01-24] MEDS ORDERED: INSULIN DETEMIR FLEXPEN/FLEX TOUCH 100 UNITS/ML 3ML SC ONE (23:30)
[2018-01-24] MEDS ORDERED: PHARMACY GLYCEMIC MGMT CONSULT PRN (23:30)
[2018-01-25] VITALS: BP 110/72; PULSE 118; TEMP 36.6; O2SAT 100; BMI 24.1
[2018-01-25] MEDS ORDERED: INSULIN HUMAN REGULAR IV BOLUS 2 UNIT in SYRINGE 0 ML IV SCH (00:20)
[2018-01-25] MEDS: INSULIN REGULAR 250 UNITS in SODIUM CHLORIDE 0.9% 250ML 250 ML IV SCH ×10 (00:31→23:41)
[2018-01-25] MEDS: PENDING D5 1/2NS+20mEq KCL IVF SCH ×4 (00:33→05:58)
[2018-01-25 00:36] LABS: CALCIUM 8.5 mg/dl (8.5-10.1); CREATININE 1.62 mg/dl (0.60-1.40); POTASSIUM 4.5 mmol/L (3.5-5.1)
[2018-01-25 00:45] LABS: PHOSPHORUS 3.6 mg/dl (2.5-4.9)
[2018-01-25] MEDS ORDERED: MAGNESIUM SULFATE 1GM / D5W 1 GM in PREMIXED IN D5W 100 ML IV ONE (01:45)
[2018-01-25 04:14] VITALS: BP 101/65; PULSE 98; TEMP 37.1; O2SAT 98
[2018-01-25 04:43] LABS: CALCIUM 8.8 mg/dl (8.5-10.1); CREATININE 1.46 mg/dl (0.60-1.40); PHOSPHORUS 3.9 mg/dl (2.5-4.9); POTASSIUM 4.5 mmol/L (3.5-5.1)
[2018-01-25] MEDS: ENOXAPARIN 40 MG/0.4 ML SYR SQ SCH (05:58)
[2018-01-25] MEDS ORDERED: INSULIN ASPART 100 UNITS/ML 3 ML PEN SC SCH ×3 (06:30→16:00)
[2018-01-25] MEDS ORDERED: NURSING VERBAL MED ORDER ONE ×3 (06:45→18:45)
[2018-01-25] MEDS ORDERED: D5W AND 1/2NSS + 20MEQ KCL 1,000 ML IV SCH (07:00)
[2018-01-25 07:19] LABS: HEMOGLOBIN A1C 8.4 % (4.5-5.6)
[2018-01-25 08:00] VITALS: O2SAT 98
[2018-01-25] MEDS ORDERED: OLANZAPINE 10 MG TAB PO SCH (08:00)
[2018-01-25] MEDS ORDERED: ACETAMINOPHEN 1000 MG/100 ML IV IV PRN (08:00)
[2018-01-25] MEDS: NITROFURANTOIN MACROCRYSTALS 50 MG CAP PO SCH ×2 (08:00→16:35)
[2018-01-25] MEDS ORDERED: DRONABINOL 2.5 MG CAP PO SCH (08:00)
[2018-01-25] MEDS ORDERED: ACETAMINOPHEN 1000 MG/100 ML IV IV SCH (08:00)
[2018-01-25] MEDS: GABAPENTIN 300 MG CAP PO SCH ×3 (08:00→20:19)
[2018-01-25 08:12] VITALS: BP 100/62; PULSE 90; TEMP 36.9; O2SAT 100
[2018-01-25 08:13] LABS: CALCIUM 8.7 mg/dl (8.5-10.1); CREATININE 1.15 mg/dl (0.60-1.40); PHOSPHORUS 3.4 mg/dl (2.5-4.9); POTASSIUM 4.1 mmol/L (3.5-5.1)
--- NOTE | 2018-01-25 08:50 | Clinical Documentation Query ---
CLINICAL DOCUMENTATION QUERY 47 year old male who presents to the Emergency Room with complaints of waxing and waning nausea. H&P states patient has a hx of CKD, without staging. Documenting the stage of CKD will improve data integrity and will help clarify vague terms such as "renal insufficiency" or "chronic renal failure." In your clinical opinion is this patient being managed for: ( x ) CKD stage 2-3 ( ) Not Agree ( ) Other explanation of clinical findings (Please Explain) ( ) Unable to determine (Please Define) ( ) Need to Discuss The medical record reflects the following clinical findings, treatment, and risk factors. Clinical Indicators: Per H&P, " CKD - Cr=1.77 at present. This is near patient's baseline renal function (2.07 and 1.69 in the past). CrCl=62.6." GFR's have ranged 44.4-56.1 during this admission. Treatment: IVF's, serial PRP's, Risk Factors: Age, Please clarify and document your clinical opinion in the progress notes and discharge summary. Terms such as "probable", "suspected", "likely", "questionable", "possible", or "still to be ruled out" are acceptable. The stages of CKD according to the [employer] are as follows: Stage I: GFR >90 Stage II: GFR 60-89 Stage III: GFR 30-59 Stage IV: GFR 15-29 Stage V: GFR <15 IF IN AGREEMENT, YOU MUST DOCUMENT ABOVE DIAGNOSTIC STATEMENT IN DAILY PROGRESS NOTES AND DISCHARGE SUMMARY. This document is not part of the patient's record. Thank You, Trent Mendez, LIANE [phone]
--- NOTE | 2018-01-25 08:53 | Clinical Documentation Query ---
CLINICAL DOCUMENTATION QUERY 47 year old male who presents to the Emergency Room with complaints of waxing and waning nausea. H&P states patient has a hx of CKD, without staging. Documenting the stage of CKD will improve data integrity and will help clarify vague terms such as "renal insufficiency" or "chronic renal failure." In your clinical opinion is this patient being managed for: ( x) CKD stage 2-3 ( ) Not Agree ( ) Other explanation of clinical findings (Please Explain) ( ) Unable to determine (Please Define) ( ) Need to Discuss The medical record reflects the following clinical findings, treatment, and risk factors. Clinical Indicators: Per H&P, " CKD - Cr=1.77 at present. This is near patient's baseline renal function (2.07 and 1.69 in the past). CrCl=62.6." GFR's have ranged 44.4-56.1 during this admission. Treatment: IVF's, serial PRP's, Risk Factors: Age, Please clarify and document your clinical opinion in the progress notes and discharge summary. Terms such as "probable", "suspected", "likely", "questionable", "possible", or "still to be ruled out" are acceptable. IF IN AGREEMENT, YOU MUST DOCUMENT ABOVE DIAGNOSTIC STATEMENT IN DAILY PROGRESS NOTES AND DISCHARGE SUMMARY. This document is not part of the patient's record. Thank You, Trent Mendez, RN [phone] The stages of CKD according to the [employer] are as follows: Stage I: GFR >90 Stage II: GFR 60-89 Stage III: GFR 30-59 Stage IV: GFR 15-29 Stage V: GFR <15
[2018-01-25] MEDS ORDERED: INSULIN GLARGINE SOLOSTAR 100 UNITS/ML 3 ML PEN SC SCH (09:00)
[2018-01-25] MEDS ORDERED: INSULIN DETEMIR FLEXPEN/FLEX TOUCH 100 UNITS/ML 3ML SC ONE ×2 (09:45→13:00)
--- NOTE | 2018-01-25 10:10 | Pharmacy Progress Note ---
Glycemic Control Intl Consult Date of Service Jan 25, 2018. Scope Glycemic Pharmacist consulted by Dr Adan on 01/24/18 for glycemic control and to write orders per formerly [facility] inpatient glycemic control protocol Objective Weight (Kilograms): 89.700 Accuchecks BSG (last 24hrs): Test 01/24/18 16:45 01/24/18 23:57 01/24/18 23:59 01/25/18 01:34 Random Glucose 319 mg/dl (70-99) 277 mg/dl (70-99) Bedside Glucose 289 mg/dl (70-99) 245 mg/dl (70-99) Test 01/25/18 02:35 01/25/18 03:35 01/25/18 04:18 01/25/18 04:44 Bedside Glucose 277 mg/dl (70-99) 281 mg/dl (70-99) 240 mg/dl (70-99) Random Glucose 242 mg/dl (70-99) Test 01/25/18 05:44 01/25/18 06:32 01/25/18 07:32 01/25/18 07:41 Bedside Glucose 184 mg/dl (70-99) 160 mg/dl (70-99) 155 mg/dl (70-99) Random Glucose 143 mg/dl (70-99) Test 01/25/18 08:41 01/25/18 09:42 Bedside Glucose 168 mg/dl (70-99) 202 mg/dl (70-99) Laboratory Data (last 24hrs) Test 01/24/18 16:45 01/24/18 23:59 01/25/18 04:18 01/25/18 07:41 Anion Gap 14.0 mmol/L 10.0 mmol/L 10.0 mmol/L 11.0 mmol/L BUN/Creatinine Ratio 18.5 17.9 18.0 20.3 Blood Urea Nitrogen 33 mg/dl 29 mg/dl 26 mg/dl 23 mg/dl Creatinine 1.77 mg/dl 1.62 mg/dl 1.46 mg/dl 1.15 mg/dl Potassium Level 4.9 mmol/L 4.5 mmol/L 4.5 mmol/L 4.1 mmol/L Sodium Level 130 mmol/L 132 mmol/L 134 mmol/L 136 mmol/L White Blood Count 12.90 K/uL Red Blood Count 4.41 M/uL Hemoglobin 10.1 g/dL Hematocrit 32.4 % Mean Corpuscular Volume 73.5 fL Mean Corpuscular Hemoglobin 22.9 pg Mean Corpuscular Hemoglobin Concent 31.2 g/dl Platelet Count 490 K/uL Mean Platelet Volume 9.5 fL Neutrophils (%) (Auto) 82.7 % Lymphocytes (%) (Auto) 7.8 % Monocytes (%) (Auto) 8.5 % Eosinophils (%) (Auto) 0.3 % Basophils (%) (Auto) 0.2 % Neutrophils # (Auto) 10.67 K/uL Lymphocytes # (Auto) 1.01 K/uL Monocytes # (Auto) 1.10 K/uL Eosinophils # (Auto) 0.04 K/uL Basophils # (Auto) 0.02 K/uL Hemoglobin A1c 8.4 % HbA1c Test 01/24/18 23:59 Hemoglobin A1c 8.4 % (4.5-5.6) H Recent Pertinent Medications Outpatient Anti-diabetic Regimen: * Levemir 100u HS, Humalog 16u AC * A1c = 8.4 % 01/24/18 The patient is currently receiving: * Insulin gtt, stable @ 3.4u/hr for the past 4 hours Risk Factors for Insulin Resistance: * Infection:r/o complicated UTI Assessment & Plan ASSESSMENT: * Mr. Rose is a 47yo M p/w hyperglycemic crises. Unlikely to be DKA or HHS given presentation and lab values. Osmolality WNL, urine ketones negative. Nil acidosis. Likely profound dehydration in setting of active malignancy. * Given the stability of Mr. Rose's insulin rate over the previous 4 hours, will attempt to transition him off of insulin gtt tonight. Rate of 3.4-4u/hr yields ~85u insulin/Day which is less than his outpatient requirements. Outpt regimen favors basal insulin. * Spoke with Dr De Guzman: change IVF to NSS + 20K @100cc/hr. PLAN FOR INPATIENT GLYCEMIC CONTROL: 01/25/18 * Basal insulin with Levemir 50units NOW x1 concurrently with insulin infsn. BSG trending up, will provide additional levemir 50units x1 this afternoon. Levemir scale HS. * Correctional Insulin with NOVOLOG per scale ACHS and 00,04 while pt ordered a diet and on insulin infsn * Goal Range: Low 140 mg/dL - High 180 mg/dL * Correction Factor: 0 mg/dL/unit * Nutritional / Prandial insulin per carb ratio of 1 unit per 4 grams CHO consumed 01/26/18 * Transitioned off of insulin infsn overnight, subsequent BSGs look good. [phone] [phone]. Updated goal range: 120-150. * Spoke with Mr. Rose, experiencing s/sx of hypoglcemia at around 100. Will loosen up CF/CR from 07/28 to 07/29 for subsequent prandial/correctional and increased goal range. * Will initiate Levemir 70units (70% of home dose) starting 01/26/18 @1800 given that Mr. Rose is now NPO. * Please note that the plan above was derived based on current level of insulin resistance and hospital stress. These recommendations are appropriate for inpatient admission only. Plan of care upon discharge will need to be reassessed to avoid potential outpatient hypo/hyperglycemia. Thank you.
[2018-01-25] MEDS: NSS + 20MEQ KCL 1000ML 1,000 ML IV SCH ×2 (10:20→20:02)
--- NOTE | 2018-01-25 10:31 | Hospitalist Progress Note ---
Hospitalist Progress Note Date of Service Jan 25, 2018. Subjective Pt evaluation today including: conversation w/ patient, physical exam, chart review, lab review, review of studies, review of inpatient medication list Objective Vital Signs Date Time Temp Pulse Resp B/P (MAP) Pulse Ox O2 Delivery O2 Flow Rate FiO2 01/25/18 08:12 36.9 90 18 100/62 (75) 100 Room Air 01/25/18 04:14 37.1 98 20 101/65 (77) 98 Room Air 01/25/18 00:00 36.6 118 20 110/72 100 Room Air 01/24/18 21:29 102 18 105/59 99 Room Air 01/24/18 21:18 106 01/24/18 19:54 105 18 107/60 99 Room Air 01/24/18 18:33 109 18 131/76 99 Room Air 01/24/18 17:13 103 01/24/18 16:39 36.3 122 18 115/74 100 Room Air Laboratory Results Last 24 Hours Test 01/24/18 16:45 01/24/18 16:50 01/24/18 17:30 01/24/18 23:57 White Blood Count 12.90 K/uL Red Blood Count 4.41 M/uL Hemoglobin 10.1 g/dL Hematocrit 32.4 % Mean Corpuscular Volume 73.5 fL Mean Corpuscular Hemoglobin 22.9 pg Mean Corpuscular Hemoglobin Concent 31.2 g/dl Platelet Count 490 K/uL Mean Platelet Volume 9.5 fL Neutrophils (%) (Auto) 82.7 % Lymphocytes (%) (Auto) 7.8 % Monocytes (%) (Auto) 8.5 % Eosinophils (%) (Auto) 0.3 % Basophils (%) (Auto) 0.2 % Neutrophils # (Auto) 10.67 K/uL Lymphocytes # (Auto) 1.01 K/uL Monocytes # (Auto) 1.10 K/uL Eosinophils # (Auto) 0.04 K/uL Basophils # (Auto) 0.02 K/uL RDW Standard Deviation 45.8 fL RDW Coefficient of Variation 17.1 % Immature Granulocyte % (Auto) 0.5 % Immature Granulocyte # (Auto) 0.06 K/uL Prothrombin Time 11.8 SECONDS Prothromb Time International Ratio 1.1 Sodium Level 130 mmol/L Potassium Level 4.9 mmol/L Chloride Level 97 mmol/L Carbon Dioxide Level 19 mmol/L Anion Gap 14.0 mmol/L Blood Urea Nitrogen 33 mg/dl Creatinine 1.77 mg/dl Est Creatinine Clear Calc Drug Dose 62.6 ml/min Estimated GFR () 51.5 Estimated GFR (Non- 44.4 BUN/Creatinine Ratio 18.5 Random Glucose 319 mg/dl Osmolality 296 mOsm/kg Calcium Level 9.6 mg/dl Phosphorus Level 4.5 mg/dl Magnesium Level 1.8 mg/dl Total Bilirubin 1.2 mg/dl Direct Bilirubin 0.3 mg/dl Aspartate Amino Transf (AST/SGOT) 10 U/L Alanine Aminotransferase (ALT/SGPT) 13 U/L Alkaline Phosphatase 84 U/L Troponin I < 0.015 ng/ml Total Protein 9.1 gm/dl Albumin 2.8 gm/dl Lipase 96 U/L Beta-Hydroxybutyric Acid 4.29 mg/dL Bedside Lactic Acid Venous 2.70 mmol/L Urine Color YELLOW Urine Appearance TURBID Urine pH >= 9.0 Urine Specific [place] 1.016 Urine Protein 1+ Urine Glucose (UA) TRACE Urine Ketones NEG Urine Occult Blood 1+ Urine Nitrite NEG Urine Bilirubin NEG Urine Urobilinogen NEG Urine Leukocyte Esterase LARGE Urine WBC (Auto) >30 /hpf Urine RBC (Auto) 5-10 /hpf Urine Hyaline Casts (Auto) 0 /lpf Urine Epithelial Cells (Auto) >30 /lpf Urine Bacteria (Auto) 2+ Urine Crystals TRIPLE PHOSPHATE Urine Pathogenic Casts /lpf Urine Yeast (Auto) Urine Osmolality 525 mOms/kg Bedside Glucose 289 mg/dl Test 01/24/18 23:59 01/25/18 01:34 01/25/18 02:35 01/25/18 03:35 Venous Blood pH 7.39 Venous Blood Partial Pressure CO2 32 mmHg Venous Blood Partial Pressure O2 36 mmHg Venous Blood HCO3 19 mmol/L Venous Blood Oxygen Saturation 65.9 % Venous Blood Base Excess -5.1 mEq/L Sodium Level 132 mmol/L Potassium Level 4.5 mmol/L Chloride Level 104 mmol/L Carbon Dioxide Level 18 mmol/L Anion Gap 10.0 mmol/L Blood Urea Nitrogen 29 mg/dl Creatinine 1.62 mg/dl Est Creatinine Clear Calc Drug Dose 68.4 ml/min Estimated GFR () 57.3 Estimated GFR (Non- 49.4 BUN/Creatinine Ratio 17.9 Random Glucose 277 mg/dl Estimated Average Glucose 194 mg/dl Hemoglobin A1c 8.4 % Lactic Acid Level 2.7 mmol/L Calcium Level 8.5 mg/dl Phosphorus Level 3.6 mg/dl Magnesium Level 1.7 mg/dl Bedside Glucose 245 mg/dl 277 mg/dl 281 mg/dl Test 01/25/18 04:18 01/25/18 04:44 01/25/18 05:44 01/25/18 06:32 Venous Blood pH 7.39 Sodium Level 134 mmol/L Potassium Level 4.5 mmol/L Chloride Level 105 mmol/L Carbon Dioxide Level 19 mmol/L Anion Gap 10.0 mmol/L Blood Urea Nitrogen 26 mg/dl Creatinine 1.46 mg/dl Est Creatinine Clear Calc Drug Dose 75.9 ml/min Estimated GFR () 65.0 Estimated GFR (Non- 56.1 BUN/Creatinine Ratio 18.0 Random Glucose 242 mg/dl Calcium Level 8.8 mg/dl Phosphorus Level 3.9 mg/dl Magnesium Level 2.3 mg/dl Bedside Glucose 240 mg/dl 184 mg/dl 160 mg/dl Test 01/25/18 07:32 01/25/18 07:41 01/25/18 08:41 Bedside Glucose 155 mg/dl 168 mg/dl Venous Blood pH 7.44 Sodium Level 136 mmol/L Potassium Level 4.1 mmol/L Chloride Level 107 mmol/L Carbon Dioxide Level 18 mmol/L Anion Gap 11.0 mmol/L Blood Urea Nitrogen 23 mg/dl Creatinine 1.15 mg/dl Est Creatinine Clear Calc Drug Dose 96.4 ml/min Estimated GFR () 86.7 Estimated GFR (Non- 74.8 BUN/Creatinine Ratio 20.3 Random Glucose 143 mg/dl Calcium Level 8.7 mg/dl Phosphorus Level 3.4 mg/dl Magnesium Level 2.0 mg/dl Assessment and Plan 47yo C male with prolonged and complicated history of metastatic adenocarcinoma of the colon presents with dehydration, hyperglycemia 1. Hyperglycemia/DKA - gap down to 11 - start to wean insulin gtt - advance diet - hgb a1c - 8.4 - continue IVF. -Continue Neurontin 300mg po TID for neuropathy 2. CKD stage 3 with dehydration - creat down to 1.15 - cont to monitor BMP 3. Leukocytosis - Patient is afebrile, mildly tachycardic. Looks like UTI - also with rectal purulent drainage -Continue suppressive dose of Macrodantin - add Rocephin - await C and S 4. Rectal drainage from previous rectal closure - looks purulent - has had abscess drainage in the past - will ask general surgery to see. Get culture 5. Rectal cancer - CT imaging reveals increased metastatic burden. Patient follows with Oncology and CR Surgery in [place]. He is to have chemo on Thursday - he is wanting to speak with oncology 5. DVT Ppx - Lovenox 7. Code - Full per discussion with patient 8. Dispo - likely one to two days yet - wean insulin gtt - await surgical consult Continued [facility] stay due to: other (still on insulin infusion) Discharge planning: uncertain
[2018-01-25] MEDS: CEFTRIAXONE SOD INJ 1 GM in DEXTROSE 5% ADD-VANTAGE 50ML 50 ML IV SCH (10:56)
[2018-01-25] MEDS: KETOROLAC TROMETHAMINE 15 MG/ML VIAL IV PRN ×2 (11:02→16:34)
--- NOTE | 2018-01-25 11:36 | Surgery Progress Note ---
Surgery Progress Note Date of Service Jan 25, 2018. Objective Vital Signs: Date Time Temp Pulse Resp B/P (MAP) Pulse Ox O2 Delivery O2 Flow Rate FiO2 01/25/18 08:12 36.9 90 18 100/62 (75) 100 Room Air 01/25/18 04:14 37.1 98 20 101/65 (77) 98 Room Air 01/25/18 00:00 36.6 118 20 110/72 100 Room Air 01/24/18 21:29 102 18 105/59 99 Room Air 01/24/18 21:18 106 01/24/18 19:54 105 18 107/60 99 Room Air 01/24/18 18:33 109 18 131/76 99 Room Air 01/24/18 17:13 103 01/24/18 16:39 36.3 122 18 115/74 100 Room Air Laboratory Results: Results Past 24 Hours Test 01/24/18 16:45 01/24/18 16:50 01/24/18 17:30 01/24/18 23:57 Range/Units White Blood Count 12.90 4.8-10.8 K/uL Red Blood Count 4.41 4.7-6.1 M/uL Hemoglobin 10.1 14.0-18.0 g/dL Hematocrit 32.4 42-52 % Mean Corpuscular Volume 73.5 80-100 fL Mean Corpuscular Hemoglobin 22.9 25-34 pg Mean Corpuscular Hemoglobin Concent 31.2 32-36 g/dl Platelet Count 490 130-400 K/uL Mean Platelet Volume 9.5 7.4-10.4 fL Neutrophils (%) (Auto) 82.7 % Lymphocytes (%) (Auto) 7.8 % Monocytes (%) (Auto) 8.5 % Eosinophils (%) (Auto) 0.3 % Basophils (%) (Auto) 0.2 % Neutrophils # (Auto) 10.67 1.4-6.5 K/uL Lymphocytes # (Auto) 1.01 1.2-3.4 K/uL Monocytes # (Auto) 1.10 0.11-0.59 K/uL Eosinophils # (Auto) 0.04 0-0.5 K/uL Basophils # (Auto) 0.02 0-0.2 K/uL RDW Standard Deviation 45.8 36.4-46.3 fL RDW Coefficient of Variation 17.1 11.5-14.5 % Immature Granulocyte % (Auto) 0.5 % Immature Granulocyte # (Auto) 0.06 0.00-0.02 K/uL Prothrombin Time 11.8 9.0-12.0 SECONDS Prothromb Time International Ratio 1.1 0.9-1.1 Sodium Level 130 136-145 mmol/L Potassium Level 4.9 3.5-5.1 mmol/L Chloride Level 97 98-107 mmol/L Carbon Dioxide Level 19 21-32 mmol/L Anion Gap 14.0 3-11 mmol/L Blood Urea Nitrogen 33 7-18 mg/dl Creatinine 1.77 0.60-1.40 mg/dl Est Creatinine Clear Calc Drug Dose 62.6 ml/min Estimated GFR () 51.5 Estimated GFR (Non- 44.4 BUN/Creatinine Ratio 18.5 10-20 Random Glucose 319 70-99 mg/dl Osmolality 296 280-300 mOsm/kg Calcium Level 9.6 8.5-10.1 mg/dl Phosphorus Level 4.5 2.5-4.9 mg/dl Magnesium Level 1.8 1.8-2.4 mg/dl Total Bilirubin 1.2 0.2-1 mg/dl Direct Bilirubin 0.3 0-0.2 mg/dl Aspartate Amino Transf (AST/SGOT) 10 15-37 U/L Alanine Aminotransferase (ALT/SGPT) 13 12-78 U/L Alkaline Phosphatase 84 45-117 U/L Troponin I < 0.015 0-0.045 ng/ml Total Protein 9.1 6.4-8.2 gm/dl Albumin 2.8 3.4-5.0 gm/dl Lipase 96 73-393 U/L Beta-Hydroxybutyric Acid 4.29 0.2-2.81 mg/dL Bedside Lactic Acid Venous 2.70 0.90-1.70 mmol/L Urine Color YELLOW Urine Appearance TURBID CLEAR Urine pH >= 9.0 4.5-7.5 Urine Specific [place] 1.016 1.000-1.030 Urine Protein 1+ NEG Urine Glucose (UA) TRACE NEG Urine Ketones NEG NEG Urine Occult Blood 1+ NEG Urine Nitrite NEG NEG Urine Bilirubin NEG NEG Urine Urobilinogen NEG NEG Urine Leukocyte Esterase LARGE NEG Urine WBC (Auto) >30 0-5 /hpf Urine RBC (Auto) 5-10 0-4 /hpf Urine Hyaline Casts (Auto) 0 0-5 /lpf Urine Epithelial Cells (Auto) >30 0-5 /lpf Urine Bacteria (Auto) 2+ NEG Urine Crystals TRIPLE PHOSPHATE NONE PRSENT Urine Pathogenic Casts 0 /lpf Urine Yeast (Auto) NONE PRSENT Urine Osmolality 525 500-800 mOms/kg Bedside Glucose 289 70-99 mg/dl Test 01/24/18 23:59 01/25/18 01:34 01/25/18 02:35 01/25/18 03:35 Range/Units Venous Blood pH 7.39 7.36-7.41 Venous Blood Partial Pressure CO2 32 38.0-50.0 mmHg Venous Blood Partial Pressure O2 36 mmHg Venous Blood HCO3 19 mmol/L Venous Blood Oxygen Saturation 65.9 % Venous Blood Base Excess -5.1 mEq/L Sodium Level 132 136-145 mmol/L Potassium Level 4.5 3.5-5.1 mmol/L Chloride Level 104 98-107 mmol/L Carbon Dioxide Level 18 21-32 mmol/L Anion Gap 10.0 3-11 mmol/L Blood Urea Nitrogen 29 7-18 mg/dl Creatinine 1.62 0.60-1.40 mg/dl Est Creatinine Clear Calc Drug Dose 68.4 ml/min Estimated GFR () 57.3 Estimated GFR (Non- 49.4 BUN/Creatinine Ratio 17.9 10-20 Random Glucose 277 70-99 mg/dl Estimated Average Glucose 194 mg/dl Hemoglobin A1c 8.4 4.5-5.6 % Lactic Acid Level 2.7 0.4-2.0 mmol/L Calcium Level 8.5 8.5-10.1 mg/dl Phosphorus Level 3.6 2.5-4.9 mg/dl Magnesium Level 1.7 1.8-2.4 mg/dl Bedside Glucose 245 277 281 70-99 mg/dl Test 01/25/18 04:18 01/25/18 04:44 01/25/18 05:44 01/25/18 06:32 Range/Units Venous Blood pH 7.39 7.36-7.41 Sodium Level 134 136-145 mmol/L Potassium Level 4.5 3.5-5.1 mmol/L Chloride Level 105 98-107 mmol/L Carbon Dioxide Level 19 21-32 mmol/L Anion Gap 10.0 3-11 mmol/L Blood Urea Nitrogen 26 7-18 mg/dl Creatinine 1.46 0.60-1.40 mg/dl Est Creatinine Clear Calc Drug Dose 75.9 ml/min Estimated GFR () 65.0 Estimated GFR (Non- 56.1 BUN/Creatinine Ratio 18.0 10-20 Random Glucose 242 70-99 mg/dl Calcium Level 8.8 8.5-10.1 mg/dl Phosphorus Level 3.9 2.5-4.9 mg/dl Magnesium Level 2.3 1.8-2.4 mg/dl Bedside Glucose 240 184 160 70-99 mg/dl Test 01/25/18 07:32 01/25/18 07:41 01/25/18 08:41 01/25/18 09:42 Range/Units Bedside Glucose 155 168 202 70-99 mg/dl Venous Blood pH 7.44 7.36-7.41 Sodium Level 136 136-145 mmol/L Potassium Level 4.1 3.5-5.1 mmol/L Chloride Level 107 98-107 mmol/L Carbon Dioxide Level 18 21-32 mmol/L Anion Gap 11.0 3-11 mmol/L Blood Urea Nitrogen 23 7-18 mg/dl Creatinine 1.15 0.60-1.40 mg/dl Est Creatinine Clear Calc Drug Dose 96.4 ml/min Estimated GFR () 86.7 Estimated GFR (Non- 74.8 BUN/Creatinine Ratio 20.3 10-20 Random Glucose 143 70-99 mg/dl Calcium Level 8.7 8.5-10.1 mg/dl Phosphorus Level 3.4 2.5-4.9 mg/dl Magnesium Level 2.0 1.8-2.4 mg/dl Test 01/25/18 10:40 Range/Units Bedside Glucose 209 70-99 mg/dl Microbiology Results 01/24/18 Urine Culture - Preliminary, Resulted Gram Negative Bacilli Gram Negative Bacilli#2 Assessment & Plan spontaneous drainage from incision anal resection recurrent drained césar 3 years ago and healed with local wound care no pain area area of interest q tipped to césar 3 cm depth serous drainage packed no cellulitis will rx with packing and daily changes for now to be seen at [facility] next 48 hours for nephrostomy tube placement will be glad to follow pt in office if he so desires See Joey Azul's consultation
[2018-01-25] MEDS ORDERED: INSULIN ASPART 100 UNITS/ML 3 ML PEN SC STA (12:19)
[2018-01-25 12:50] LABS: CALCIUM 8.7 mg/dl (8.5-10.1); CREATININE 1.26 mg/dl (0.60-1.40); POTASSIUM 4.3 mmol/L (3.5-5.1)
[2018-01-25 12:51] LABS: PHOSPHORUS 3.3 mg/dl (2.5-4.9)
[2018-01-25 13:09] VITALS: BMI 24.1
[2018-01-25 15:21] VITALS: BMI 24.1
[2018-01-25 16:00] VITALS: O2SAT 96
[2018-01-25] MEDS ORDERED: DC IV INSULIN INFUSION SCH (16:00)
[2018-01-25] MEDS ORDERED: DC IV INSULIN INFUSION ONE (16:00)
--- NOTE | 2018-01-25 16:45 | Oncology Consultation ---
Oncology/Heme Consultation Date of Consultation: Jan 25, 2018. Attending Physician: Shahbaz De Guzman MD, PhD Reason for Consultation: Metastatic colorectal cancer History of Present Illness Mr. Rose is a 47 year old man with heavily pretreated metastatic colorectal cancer. He started irinotecan and cetuximab on 12/29/17. His first cycle was complicated by a very severe cetuximab-induced acneiform rash. His treatment has been on hold since then and he was due for his next dose tomorrow. He presented yesterday with several weeks of dizziness, weakness, and orthostasis. He has been eating poorly and his blood sugars have been suboptimally controlled. He was found on admission to be modestly hyperglycemic with a anion- gap acidosis, consistent with DKA. He's been treated with insulin and IV fluids and is feeling better, though he still feels weak. He tried some appetite stimulants given to him by his PCP, but did not feel they were making a large difference. He denies any diarrhea and his rash seems to be improving. Past Medical/Surgical History Medical Problems: (1) Dehydration Status: Acute (2) Elevated lactic acid level Status: Acute (3) Pyelonephritis Status: Acute Family History Cancer Diabetes mellitus Social History Smoking Status: Never Smoker Smokeless Tobacco Use: Yes Alcohol Use: occasionally Drug Use: none Marital Status: single Housing Status: lives with family Occupation Status: employed Allergies Coded Allergies: No Known Allergies (Verified , 01/24/18) Home Medications Scheduled Atorvastatin (Lipitor), 20 MG PO HS Dronabinol (Marinol), 5 MG PO BID Gabapentin (Neurontin), 300 MG PO TID Insulin Detemir (Levemir), 100 UNITS SC HS Insulin Lispro (Human) (Humalog), 16 SC AC Nitrofurantoin Macrocrystals (Macrodantin), 100 MG PO DAILY Olanzapine (Zyprexa), 10 MG PO DAILY Scheduled PRN Haloperidol (Haldol), 0.5 MG PO DAILY PRN for Nausea Lorazepam (Ativan), 0.5 MG PO DAILY PRN for Anxiety Ondansetron (Ondansetron HCl), 8 MG PO Q8H PRN for Nausea Prochlorperazine Maleate (Compazine), 10 MG PO Q6H PRN for Nausea Current Inpatient Medications Current Inpatient Medications Medications (Trade) Dose Ordered Sig/Rosie Route Start Time Stop Time Status Last Admin Dose Admin Atorvastatin Calcium (Lipitor Tab) 20 mg HS PO 01/25/18 21:00 02/24/18 20:59 Gabapentin (Neurontin Cap) 300 mg TID PO 01/25/18 08:00 02/24/18 08:59 Haloperidol (Haldol Tab) 0.5 mg DAILY PRN PO 01/24/18 21:45 02/23/18 21:44 Lorazepam (Ativan Tab) 0.5 mg DAILY PRN PO 01/24/18 21:45 02/23/18 21:44 Nitrofurantoin Macrocrystals (Macrodantin Cap) 100 mg DAILY PO 01/25/18 08:00 02/04/18 08:59 Ondansetron HCl (Zofran Tab) 8 mg Q8H PRN PO 01/24/18 21:45 02/23/18 21:44 Prochlorperazine Maleate (Compazine Tab) 10 mg Q6H PRN PO 01/24/18 21:45 02/23/18 21:44 01/25/18 00:32 10 MG Enoxaparin Sodium (Lovenox Inj) 40 mg Q24H SQ 01/25/18 06:00 02/24/18 05:59 01/25/18 05:58 40 MG Acetaminophen (Tylenol Tab) 650 mg Q4H PRN PO 01/24/18 22:30 02/23/18 22:29 Al Hydrox/Mg Hydrox/Simethicone (Maalox Max Susp) 15 ml Q4H PRN PO 01/24/18 22:30 02/23/18 22:29 Glucose (Glucose 40% Gel) 15-30 GRAMS 15 GRAMS... UD PRN PO 01/24/18 22:30 02/23/18 22:29 Glucose (Glucose Chew Tab) 4-8 Tablets 4 Tabl... UD PRN PO 01/24/18 22:30 02/23/18 22:29 Dextrose (Dextrose 50% 50ML Syringe) 25-50ML OF 50% DW IV FOR... UD PRN IV 01/24/18 22:30 02/23/18 22:29 Glucagon (Glucagon Inj) 1 mg UD PRN SQ 01/24/18 22:30 02/23/18 22:29 Miscellaneous Information (Consult Glycemic Management Pharmacy) 1 ea UD PRN N/A 01/24/18 23:30 02/23/18 23:29 Insulin Human Regular 250 units/ Sodium Chloride 252.5 ml @ 0 mls/hr Q24H IV 01/25/18 00:30 02/24/18 00:29 01/25/18 13:23 7.1 MLS/HR Acetaminophen (Ofirmev Iv) 1,000 mg Q8H PRN IV 01/25/18 08:00 02/24/18 07:59 Potassium Chloride/Sodium Chloride 1,000 ml @ 100 mls/hr Q10H IV 01/25/18 09:45 02/24/18 09:44 01/25/18 10:20 100 MLS/HR Ketorolac Tromethamine (Toradol Inj) 15 mg Q6H PRN IV 01/25/18 10:15 01/30/18 10:14 01/25/18 11:02 15 MG Ceftriaxone Sodium 1 gm/ Dextrose 50 ml @ 100 mls/hr Q24H IV 01/25/18 10:30 02/04/18 10:29 01/25/18 10:56 100 MLS/HR Insulin Aspart (novoLOG ASPART) SLIDING SCALE ACHS MA 01/25/18 16:30 02/24/18 16:29 Insulin Aspart (novoLOG ASPART) SLIDING SCALE TODAY@0000,0400 MA 01/26/18 00:00 01/26/18 04:01 Insulin Detemir (Levemir Flexpen/ FlexTouch) HS MA 01/25/18 21:00 02/24/18 20:59 Miscellaneous Information (Dc Iv Insulin Infusion) 1 ea QS N/A 01/25/18 16:00 02/24/18 15:59 Review of Systems Constitutional: + weakness, + fatigue Eyes: No worsening of vision Respiratory: No cough, No shortness of breath Cardiovascular: No chest pain Abdomen: No pain, No nausea, No vomiting Musculoskeletal: No joint pain, No muscle pain Hematologic / Lymphatic: No abnormal bleeding/bruising Physical Exam Date Time Temp Pulse Resp B/P (MAP) Pulse Ox O2 Delivery O2 Flow Rate FiO2 01/25/18 08:12 36.9 90 18 100/62 (75) 100 Room Air 01/25/18 08:00 98 Room Air 01/25/18 04:14 37.1 98 20 101/65 (77) 98 Room Air 01/25/18 00:00 36.6 118 20 110/72 100 Room Air 01/24/18 21:29 102 18 105/59 99 Room Air 01/24/18 21:18 106 01/24/18 19:54 105 18 107/60 99 Room Air 01/24/18 18:33 109 18 131/76 99 Room Air 01/24/18 17:13 103 01/24/18 16:39 36.3 122 18 115/74 100 Room Air General Appearance: WD/WN, no apparent distress Respiratory/Chest: lungs clear Cardiovascular: regular rate, rhythm Abdomen/GI: non tender, soft Extremities/Musculoskelatal: no pedal edema Neurologic/Psych: alert, oriented x 3 Skin: no rash Laboratory Results Last 24 Hours Test 01/24/18 16:45 01/24/18 16:50 01/24/18 17:30 01/24/18 23:57 White Blood Count 12.90 K/uL Red Blood Count 4.41 M/uL Hemoglobin 10.1 g/dL Hematocrit 32.4 % Mean Corpuscular Volume 73.5 fL Mean Corpuscular Hemoglobin 22.9 pg Mean Corpuscular Hemoglobin Concent 31.2 g/dl Platelet Count 490 K/uL Mean Platelet Volume 9.5 fL Neutrophils (%) (Auto) 82.7 % Lymphocytes (%) (Auto) 7.8 % Monocytes (%) (Auto) 8.5 % Eosinophils (%) (Auto) 0.3 % Basophils (%) (Auto) 0.2 % Neutrophils # (Auto) 10.67 K/uL Lymphocytes # (Auto) 1.01 K/uL Monocytes # (Auto) 1.10 K/uL Eosinophils # (Auto) 0.04 K/uL Basophils # (Auto) 0.02 K/uL RDW Standard Deviation 45.8 fL RDW Coefficient of Variation 17.1 % Immature Granulocyte % (Auto) 0.5 % Immature Granulocyte # (Auto) 0.06 K/uL Prothrombin Time 11.8 SECONDS Prothromb Time International Ratio 1.1 Sodium Level 130 mmol/L Potassium Level 4.9 mmol/L Chloride Level 97 mmol/L Carbon Dioxide Level 19 mmol/L Anion Gap 14.0 mmol/L Blood Urea Nitrogen 33 mg/dl Creatinine 1.77 mg/dl Est Creatinine Clear Calc Drug Dose 62.6 ml/min Estimated GFR () 51.5 Estimated GFR (Non- 44.4 BUN/Creatinine Ratio 18.5 Random Glucose 319 mg/dl Osmolality 296 mOsm/kg Calcium Level 9.6 mg/dl Phosphorus Level 4.5 mg/dl Magnesium Level 1.8 mg/dl Total Bilirubin 1.2 mg/dl Direct Bilirubin 0.3 mg/dl Aspartate Amino Transf (AST/SGOT) 10 U/L Alanine Aminotransferase (ALT/SGPT) 13 U/L Alkaline Phosphatase 84 U/L Troponin I < 0.015 ng/ml Total Protein 9.1 gm/dl Albumin 2.8 gm/dl Lipase 96 U/L Beta-Hydroxybutyric Acid 4.29 mg/dL Bedside Lactic Acid Venous 2.70 mmol/L Urine Color YELLOW Urine Appearance TURBID Urine pH >= 9.0 Urine Specific [place] 1.016 Urine Protein 1+ Urine Glucose (UA) TRACE Urine Ketones NEG Urine Occult Blood 1+ Urine Nitrite NEG Urine Bilirubin NEG Urine Urobilinogen NEG Urine Leukocyte Esterase LARGE Urine WBC (Auto) >30 /hpf Urine RBC (Auto) 5-10 /hpf Urine Hyaline Casts (Auto) 0 /lpf Urine Epithelial Cells (Auto) >30 /lpf Urine Bacteria (Auto) 2+ Urine Crystals TRIPLE PHOSPHATE Urine Pathogenic Casts /lpf Urine Yeast (Auto) Urine Osmolality 525 mOms/kg Bedside Glucose 289 mg/dl Test 01/24/18 23:59 01/25/18 01:34 01/25/18 02:35 01/25/18 03:35 Venous Blood pH 7.39 Venous Blood Partial Pressure CO2 32 mmHg Venous Blood Partial Pressure O2 36 mmHg Venous Blood HCO3 19 mmol/L Venous Blood Oxygen Saturation 65.9 % Venous Blood Base Excess -5.1 mEq/L Sodium Level 132 mmol/L Potassium Level 4.5 mmol/L Chloride Level 104 mmol/L Carbon Dioxide Level 18 mmol/L Anion Gap 10.0 mmol/L Blood Urea Nitrogen 29 mg/dl Creatinine 1.62 mg/dl Est Creatinine Clear Calc Drug Dose 68.4 ml/min Estimated GFR () 57.3 Estimated GFR (Non- 49.4 BUN/Creatinine Ratio 17.9 Random Glucose 277 mg/dl Estimated Average Glucose 194 mg/dl Hemoglobin A1c 8.4 % Lactic Acid Level 2.7 mmol/L Calcium Level 8.5 mg/dl Phosphorus Level 3.6 mg/dl Magnesium Level 1.7 mg/dl Bedside Glucose 245 mg/dl 277 mg/dl 281 mg/dl Test 01/25/18 04:18 01/25/18 04:44 01/25/18 05:44 01/25/18 06:32 Venous Blood pH 7.39 Sodium Level 134 mmol/L Potassium Level 4.5 mmol/L Chloride Level 105 mmol/L Carbon Dioxide Level 19 mmol/L Anion Gap 10.0 mmol/L Blood Urea Nitrogen 26 mg/dl Creatinine 1.46 mg/dl Est Creatinine Clear Calc Drug Dose 75.9 ml/min Estimated GFR () 65.0 Estimated GFR (Non- 56.1 BUN/Creatinine Ratio 18.0 Random Glucose 242 mg/dl Calcium Level 8.8 mg/dl Phosphorus Level 3.9 mg/dl Magnesium Level 2.3 mg/dl Bedside Glucose 240 mg/dl 184 mg/dl 160 mg/dl Test 01/25/18 07:32 01/25/18 07:41 01/25/18 08:41 01/25/18 09:42 Bedside Glucose 155 mg/dl 168 mg/dl 202 mg/dl Venous Blood pH 7.44 Sodium Level 136 mmol/L Potassium Level 4.1 mmol/L Chloride Level 107 mmol/L Carbon Dioxide Level 18 mmol/L Anion Gap 11.0 mmol/L Blood Urea Nitrogen 23 mg/dl Creatinine 1.15 mg/dl Est Creatinine Clear Calc Drug Dose 96.4 ml/min Estimated GFR () 86.7 Estimated GFR (Non- 74.8 BUN/Creatinine Ratio 20.3 Random Glucose 143 mg/dl Calcium Level 8.7 mg/dl Phosphorus Level 3.4 mg/dl Magnesium Level 2.0 mg/dl Test 01/25/18 10:40 01/25/18 12:00 01/25/18 12:02 01/25/18 13:14 Bedside Glucose 209 mg/dl 234 mg/dl 230 mg/dl Venous Blood pH 7.38 Sodium Level 134 mmol/L Potassium Level 4.3 mmol/L Chloride Level 104 mmol/L Carbon Dioxide Level 20 mmol/L Anion Gap 10.0 mmol/L Blood Urea Nitrogen 22 mg/dl Creatinine 1.26 mg/dl Est Creatinine Clear Calc Drug Dose 88.0 ml/min Estimated GFR () 77.7 Estimated GFR (Non- 67.0 BUN/Creatinine Ratio 17.5 Random Glucose 227 mg/dl Calcium Level 8.7 mg/dl Phosphorus Level 3.3 mg/dl Magnesium Level 2.0 mg/dl Test 01/25/18 14:18 01/25/18 15:12 01/25/18 16:17 01/25/18 16:20 Bedside Glucose 184 mg/dl 153 mg/dl 120 mg/dl Assessment & Plan I agree with his admitting provider that his overall picture is more consistent with dehydration secondary to poor PO intake related to his cancer and chemotherapy, though he did have a gapped acidosis that merits treatment. I discussed with Mr. Rose the importance of maintaining his oral intake and improving his nutrition and hydration. We will hold off on his treatment tomorrow and he can regather with Dr. Mueller next week to discuss further treatment. He had a very severe rash from Cetuximab and may not be able to tolerate further treatment, though I am not sure about the degree to which he took supportive therapies, such as prophylactic antibiotics and topical therapies. He should address this with Dr. Mueller at their visit. Otherwise, I would continue with supportive care for now and we can arrange for him to be seen in our clinic next week.
[2018-01-25 16:52] LABS: CALCIUM 8.9 mg/dl (8.5-10.1); CREATININE 1.55 mg/dl (0.60-1.40); PHOSPHORUS 3.3 mg/dl (2.5-4.9); POTASSIUM 4.1 mmol/L (3.5-5.1)
--- NOTE | 2018-01-25 17:05 | CONSULTATION REPORT ---
DATE OF CONSULTATION: 01/24/2018 SURGERY CONSULTATION ATTENDING: Dr. White. REASON FOR CONSULTATION: Wound drainage. HISTORY OF PRESENT ILLNESS: The patient is a 46-year-old male with a history of rectal cancer diagnosed 8 years ago. He had a low resection at that time with a temporary colostomy which was later reversed. He had recurrent disease about a year later and had APR at that time. He went on to have a bladder resection for recurrent disease. About 4 years ago, he had drainage from his perineal incision which was opened and packed. He declined a wound VAC treatment at that time. He was admitted yesterday to the hospitalist service for 1 month of dizziness which has increased recently. His appetite has been less over the past week. He has lost about 10 pounds in the last several months. No fevers or chills. He was scheduled to see oncology tomorrow for additional chemotherapy. He is scheduled to have a nephrostomy tube exchanged in [place] on . Yesterday he began having drainage from his perineal yesterday. He was concerned at the amount and purulent nature. Today, there is a little less drainage. PAST MEDICAL HISTORY: 1. Rectal cancer. 2. Chronic kidney disease. 3. Type 2 diabetes. 4. Osteomyelitis and diabetic foot ulcer. 5. Recurrent UTIs. PAST SURGICAL HISTORY: Low anterior resection followed by APR, cystectomy. He has had resection of liver mets, and toe amputation. SOCIAL HISTORY: Occasional alcohol use. Denies tobacco use. His family has helped in the past with wound care and packing. CURRENT MEDICATIONS: Inpatient medications include sliding scale NovoLog, Lipitor 20 mg daily, Levemir FlexPen at bedtime, Rocephin 1 gram IV daily, Toradol 50 mg IV q. 6 hours as needed, Neurontin 300 mg p.o. t.i.d., Macrodantin 100 mg daily, Lovenox 40 mg daily, insulin drip, Tylenol 650 mg as needed, Zofran 8 mg as needed, Ativan 0.5 mg as needed and Haldol 0.5 mg as needed. ALLERGIES: NKDA. REVIEW OF SYSTEMS: GENERAL: No fevers or chills. A 10-pound weight loss in the last few months. He was recently prescribed Marinol, which seems to be helping with his appetite, although it has been less over the last week. ABDOMEN: He has had some nausea recently. No abdominal pain. OBJECTIVE: GENERAL: He appears in no acute distress. VITAL SIGNS: Temperature 36.9, pulse 90, respirations 18, blood pressure 100/62, pulse ox 100% on room air. HEENT: Unremarkable. ABDOMEN: Soft, nontender, has a left colostomy and right urostomy. His perineal incision is intact. Along the lower sacral area, there is a small, opening with purulent yellow drainage. The opening was just large enough to be probed with a Q-tip, extended about an inch superiorly along the length of the incision. There is no erythema or tenderness. LABORATORY DATA: White count is 12,900 with a left shift, hemoglobin 10.1, hematocrit 32.4, and platelets 490,000 on admission. IMAGING DATA: CT of the abdomen and pelvis shows progression of pulmonary metastatic disease compared to September 2017. There is also enlargement of right adrenal mass and increased size of retroperitoneal and mesenteric lymph nodes. No acute infectious or inflammatory findings were noted in the abdomen or pelvis. IMPRESSION: Spontaneously draining abscess. PLAN: The wound was packed with approximately 2 inches of a quarter-inch packing. Continue to change this daily. No further I&D is needed at this time. Can continue home packing changes at discharge. He would like to start with a home nurse, if possible. He can follow up with us in the office after discharge if he wishes. He also mentioned going back to the [place] department of surgery as he is already scheduled for nephrostomy exchange. Will continue to follow along while he is in the hospital. EDELMIRA
[2018-01-25] MEDS: INSULIN ASPART 100 UNITS/ML 3 ML PEN SC SCH ×4 (17:42→23:44)
[2018-01-25 19:53] VITALS: BP 118/70; PULSE 78; TEMP 36.8; O2SAT 100
[2018-01-25 20:43] LABS: CALCIUM 8.7 mg/dl (8.5-10.1); CREATININE 1.69 mg/dl (0.60-1.40); POTASSIUM 4.5 mmol/L (3.5-5.1)
[2018-01-25 20:44] LABS: PHOSPHORUS 3.6 mg/dl (2.5-4.9)
[2018-01-25] MEDS ORDERED: INSULIN DETEMIR FLEXPEN/FLEX TOUCH 100 UNITS/ML 3ML SC SCH (21:00)
[2018-01-25] MEDS ORDERED: ATORVASTATIN 20 MG TAB PO SCH (21:00)
[2018-01-25] MEDS ORDERED: ONDANSETRON 4MG OD TAB PO PRN (21:15)
[2018-01-25] MEDS ORDERED: PROCHLORPERAZINE INJ 5 MG in SYRINGE 4 ML IV ONE (21:30)
[2018-01-26] VITALS (9 sets, daily range): BP systolic 121–134; BP diastolic 73–80; PULSE 75–93; TEMP 36.5–36.9; O2SAT 98–100; Ht 193 cm; Wt 91.8 kg
[2018-01-26] MEDS: DEXTROSE 50% 50 ML SYR IV PRN ×2 (01:15→04:32)
[2018-01-26] MEDS: INSULIN REGULAR 250 UNITS in SODIUM CHLORIDE 0.9% 250ML 250 ML IV SCH (02:24)
[2018-01-26] MEDS: INSULIN ASPART 100 UNITS/ML 3 ML PEN SC SCH ×2 (03:51→08:52)
[2018-01-26] MEDS: KETOROLAC TROMETHAMINE 15 MG/ML VIAL IV PRN (04:36)
[2018-01-26 06:12] LABS: BASO % 0.4 %; BASO ABS # 0.02 K/uL (0-0.2); EOS ABS # 0.11 K/uL (0-0.5); HEMOGLOBIN 7.3 g/dL (14.0-18.0); IG# 0.01 K/uL (0.00-0.02); LYMPH % 14.9 %; LYMPH ABS # 0.81 K/uL (1.2-3.4); MEAN CELL VOLUME 73.6 fL (80-100); MEAN CORPUSCULAR HEMOGLOBIN 22.4 pg (25-34); MEAN CORPUSCULAR HGB CONC 30.4 g/dl (32-36); MEAN PLATELET VOLUME 8.6 fL (7.4-10.4); MONO % 11.2 %; MONO ABS # 0.61 K/uL (0.11-0.59); NEUT % 71.3 %; NEUT ABS # 3.87 K/uL (1.4-6.5); PLATELET COUNT 289 K/uL (130-400); RED CELL DISTRIBUTION WIDTH CV 16.8 % (11.5-14.5); RED CELL DISTRIBUTION WIDTH SD 45.9 fL (36.4-46.3); WHITE BLOOD COUNT 5.43 K/uL (4.8-10.8)
[2018-01-26] MEDS: NSS + 20MEQ KCL 1000ML 1,000 ML IV SCH (06:12)
[2018-01-26 06:43] LABS: CALCIUM 8.6 mg/dl (8.5-10.1); CREATININE 1.3 mg/dl (0.60-1.40); PHOSPHORUS 3.9 mg/dl (2.5-4.9); POTASSIUM 4.3 mmol/L (3.5-5.1)
[2018-01-26] MEDS: GABAPENTIN 300 MG CAP PO SCH ×3 (08:30→14:15)
[2018-01-26] MEDS: ENOXAPARIN 40 MG/0.4 ML SYR SQ SCH (08:30)
[2018-01-26] MEDS: ONDANSETRON INJ 8 MG in DEXTROSE 5% 50ML 50 ML IV PRN ×2 (09:47→19:05)
[2018-01-26] MEDS ORDERED: NURSING VERBAL MED ORDER ONE (10:00)
[2018-01-26] MEDS ORDERED: HYDROmorphone INJ 0.5 MG/0.5 ML SYR ONE (10:03)
[2018-01-26] MEDS: CEFTRIAXONE SOD INJ 1 GM in DEXTROSE 5% ADD-VANTAGE 50ML 50 ML IV SCH (10:07)
[2018-01-26] MEDS ORDERED: HYDROmorphone INJ 0.5 MG/0.5 ML SYR IV STA (10:31)
[2018-01-26] MEDS ORDERED: HYDROmorphone INJ 0.5 MG/0.5 ML SYR IV PRN ×2 (10:45)
[2018-01-26] MEDS ORDERED: PROCHLORPERAZINE INJ 5 MG in SYRINGE 4 ML IV ONE (11:00)
--- NOTE | 2018-01-26 12:02 | DIAGNOSTIC IMAGING REPORT ---
ABDOMEN 2 VIEWS CLINICAL HISTORY: Generalized abdominal pain. FINDINGS: Supine and decubitus abdominal radiographs are correlated with abdominal CT dated 01/24/2018. There is a nonobstructed abdominal bowel gas pattern. A left ureteral stent is unchanged in position and extends to a urostomy in the right lower quadrant. A colostomy is seen in the left lower quadrant. Suture material is present in the left lower quadrant and pelvis. No evidence of intraperitoneal free air is seen on the decubitus views. Mild to moderate colonic fecal retention is observed. The skeletal structures are osteopenic. Lumbosacral spondylosis is noted. IMPRESSION: Nonobstructed abdominal bowel gas pattern. Electronically signed by: Rafa Coronel M.D. 01/26/2018 12:01 PM Dictated Date/Time: 01/26/2018 11:58 AM
[2018-01-26] MEDS ORDERED: PROCHLORPERAZINE INJ 5 MG in SYRINGE 4 ML IV PRN (14:45)
[2018-01-26] MEDS ORDERED: OPTIRAY 320 IV PRN (15:30)
--- NOTE | 2018-01-26 15:40 | Progress Note ---
Progress Note Date of Service Jan 26, 2018. Progress Note Patient in radiology for CT head due to headache, N/V similar amount of drainage today per nursing continue daily packing changes, will follow-up in AM
--- NOTE | 2018-01-26 15:42 | DIAGNOSTIC IMAGING REPORT ---
CT SCAN OF THE BRAIN COMBO CLINICAL HISTORY: Colorectal carcinoma. Metastatic survey. COMPARISON STUDY: No priors. TECHNIQUE: Axial CT scan of the brain is performed from the vertex to the skull base before and following the IV administration of 91 cc of Optiray 320. IV contrast was administered without complication. A dose lowering technique was utilized adhering to the principles of ALARA. CT DOSE: 1228.53 mGy.cm FINDINGS: Brain parenchyma: There is a 3.3 x 3.2 cm heterogeneously hyperdense mass lesion in the left cerebellar hemisphere seen on axial image #10. There is significant surrounding edema which effaces the fourth ventricle. The appearance is consistent with a hemorrhagic mass. Enhancement within this lesion is difficult to assess due to the presence of hemorrhage. No additional intracranial lesions identified throughout the brain on the postcontrast series. No additional focus of hemorrhage is seen. There is no evidence of acute territorial ischemia by CT criteria. Perez-white matter is preserved. No extra-axial fluid collection is seen. Ventricles, sulci, cisterns: As noted above there is near complete effacement of the fourth ventricle and the left quadrigeminal plate cistern. There is minimal dilatation of the third ventricle which measures up to 11 mm in diameter. The lateral ventricles are normal in caliber. Intracranial vasculature: The visualized intracranial vasculature at the skull base is normal in appearance. Calvarium: Unremarkable. Sinuses and mastoids: There is trace fluid within the left maxillary antrum. The remaining visualized paranasal sinuses are clear. The mastoid air cells are well pneumatized. Orbits: The bony orbits are grossly intact. IMPRESSION: 1. There is a 3.3 x 3.2 cm hyperdense lesion in the left cerebellar hemisphere with significant surrounding edema. The appearance is most consistent with a hemorrhagic metastasis given the cancer history. Other etiologies such as a benign hemorrhage or hemorrhagic glial neoplasm are considered much less likely. Short-term follow-up is suggested. 2. Cerebellar edema causes near complete effacement of the fourth ventricle and the left quadrigeminal plate cisterns as well as mild dilatation of the third ventricle. The lateral ventricles are normal in caliber. 3. No additional foci of hemorrhage or additional enhancing lesion are identified on the postcontrast series. Electronically signed by: Rafa Coronel M.D. 01/26/2018 3:41 PM Dictated Date/Time: 01/26/2018 3:32 PM
[2018-01-26] MEDS ORDERED: NVLGIPEN SC (17:47)
--- NOTE | 2018-01-26 17:50 | Discharge Instructions ---
Discharge Instructions Date of Service Jan 26, 2018. Admission Reason for Admission: Failure To Thrive Discharge Discharge Diagnosis / Problem: hemorrhagic 3x3 cm left cerebellar lesion with h /o adeno ca Discharge Goals Goal(s): Diagnostic testing, Therapeutic intervention Activity Recommendations Activity Limitations: as noted below Lifting Limitations: until after follow-up appointment .ct head with contrast:IMPRESSION: 1. There is a 3.3 x 3.2 cm hyperdense lesion in the left cerebellar hemisphere with significant surrounding edema. The appearance is most consistent with a hemorrhagic metastasis given the cancer history. Other etiologies such as a benign hemorrhage or hemorrhagic glial neoplasm are considered much less likely. Short-term follow-up is suggested. 2. Cerebellar edema causes near complete effacement of the fourth ventricle and the left quadrigeminal plate cisterns as well as mild dilatation of the third ventricle. The lateral ventricles are normal in caliber. 3. No additional foci of hemorrhage or additional enhancing lesion are identified on the postcontrast series. Current Hospital Diet Patient's current hospital diet: Diabetes Type 2 Diet Discharge Diet Recommended Diet: N/A Pending Studies Studies pending at discharge: no Laboratory Results Hemoglobin A1c Test 01/24/18 23:59 Range/Units Estimated Average Glucose 194 mg/dl Hemoglobin A1c 8.4 H 4.5-5.6 % Medical Emergencies . Who to Call and When: Medical Emergencies: If at any time you feel your situation is an emergency, please call 911 immediately. . Non-Emergent Contact Non-Emergency issues call your: Oncologist, Surgeon . . "Provider Documentation" section prepared by Mello Schultz. .
[2018-01-26] MEDS ORDERED: INSULIN DETEMIR FLEXPEN/FLEX TOUCH 100 UNITS/ML 3ML SC SCH ×3 (18:00→21:00)
[2018-01-26] MEDS ORDERED: INSULIN ASPART 100 UNITS/ML 3 ML PEN SC SCH (18:00)
[2018-01-26] MEDS ORDERED: DEXAMETHASONE INJ 4 MG in SYRINGE 0 ML IV SCH (18:00)
--- NOTE | 2018-01-26 19:04 | Discharge Summary ---
Discharge Summary Date of Service Jan 26, 2018. Discharge Summary Admission Date: Jan 24, 2018 at 21:50 Discharge Date: Jan 26, 2018 Discharge Disposition: Acute care facility Principal Diagnosis: hemorrhagic cerebellar mass lesion, adenocarcinoma of colon Immunizations: Have You Had Influenza Vaccine: Yes Influenza Vaccine Date: Jul 26, 2013 History of Tetanus Vaccine?: utd History of Pneumococcal: Unknown History of Hepatitis B Vaccine: No Procedures: CT head with 3x3 cm cerebellar lesion Medication Reconciliation New Medications: Insulin Aspart (Novolog Flexpen) 100 Units/Ml Inj 0 UNITS SC Q6, #1 PEN Continued Medications: Dronabinol (Marinol) 5 Mg Cap 5 MG PO BID Gabapentin (Neurontin) 300 Mg Cap 300 MG PO TID, CAP Haloperidol (Haldol) 0.5 Mg Tab 0.5 MG PO DAILY PRN for Nausea, TAB Insulin Detemir (Levemir) 100 Units/Ml Inj 50 UNITS SC HS Lorazepam (Ativan) 0.5 Mg Tab 0.5 MG PO DAILY PRN for Anxiety, TAB Olanzapine (Zyprexa) 10 Mg Tab 10 MG PO DAILY, TAB Ondansetron (Ondansetron HCl) 8 Mg Tab 8 MG PO Q8H PRN for Nausea Prochlorperazine Maleate (Compazine) 10 Mg Tab 10 MG PO Q6H PRN for Nausea, TAB Discontinued Medications: Atorvastatin (Lipitor) 20 Mg Tab 20 MG PO HS, TAB Insulin Lispro (Human) (Humalog) 100 Unit/Ml Inj 16 SC AC Nitrofurantoin Macrocrystals (Macrodantin) 100 Mg Cap 100 MG PO DAILY, CAP Discharge Exam Review of Systems: Constitutional: + weakness, No fever, No chills Eyes: No diplopia Cardiovascular: No chest pain, No edema Abdomen: + nausea, + vomiting, No pain, No diarrhea Musculoskeletal: No joint pain, No muscle pain, No swelling Neurologic: No memory loss, No paralysis Psychiatric: + depression symptoms, No anhedonism Endocrine: No fatigue, No excessive thirst Physical Exam: General Appearance: + moderate distress, + thin Eyes: normal inspection, sclerae normal Respiratory/Chest: chest non-tender, lungs clear, normal breath sounds Cardiovascular: regular rate, rhythm, no murmur Abdomen / GI: normal bowel sounds, non tender, soft Hospital Course 47 yo male admitted because of dehydration and hyperglycemia on January 24, 2018 with recent complicated history of metastatic adenocarcinoma of the colon INtractable vomiting and nausea, some dysmetria. Ct head with contrast was chosen due to persistent vomiting and showed 3x3 cm lesion in cerebellum with mass affect and vasogenic edema Severe hyperglycemia, resolved DKA - gap down to 11 basal bolus insulin Uncontrolled diabetic with Hgb a1c - 8.4 - continue IVF. Spot diabetic neuropathy, will continue Neurontin 300mg po TID for neuropathy CKD stage 3 with dehydration Rectal drainage from previous rectal closure associated with leukocytosis , culture sent, continue Rocephin Rectal cancer is evident on CT imaging increased metastatic burden, pulmonary mets are also seen I spoke to Dr Dale neurosurgery, will accept to [facility] and consider revaluation for staging and treatment options, I briefly spoke to the pt about aggressive vs non aggressive care and he wants to go to [facility] Total Time Spent: Greater than 30 minutes This includes examination of the patient, discharge planning, medication reconciliation, and communication with other providers. Discharge Instructions Please refer to the electronic Patient Visit Report (Discharge Instructions) for additional information.
[2018-01-26] MEDS ORDERED: NITROFURANTOIN MACROCRYSTALS 50 MG CAP PO SCH (21:00)
== END 2018-01-26 19:45 | disposition short-term general hospital (02) | DRG 637 ==
LOC: EDBD 16:32 → C.EDB 16:35 → C.4E 21:50 → ENRESERV 22:02
PROVIDERS: ADMIT Internal Medicine; ATTEND Internal Medicine
PROC: 2Y43X5Z Packing of Anorectal Region using Packing Material (ICD-10-PCS; principal; 2018-01-24)
DX: E10.10 Type 1 diabetes mellitus with ketoacidosis without coma (principal); G93.6 Cerebral edema; I61.4 Nontraumatic intracerebral hemorrhage in cerebellum; L02.215 Cutaneous abscess of perineum; C20 Malignant neoplasm of rectum; C78.00 Secondary malignant neoplasm of unspecified lung; E86.0 Dehydration; R27.8 Other lack of coordination; D72.829 Elevated white blood cell count, unspecified; R22.0 Localized swelling, mass and lump, head; R62.7 Adult failure to thrive; N18.3 Chronic kidney disease, stage 3 (moderate); E10.42 Type 1 diabetes mellitus with diabetic polyneuropathy; Z79.899 Other long term (current) drug therapy; Z93.3 Colostomy status; Z93.6 Other artificial openings of urinary tract status; Z87.440 Personal history of urinary (tract) infections; Z85.05 Personal history of malignant neoplasm of liver; Z83.3 Family history of diabetes mellitus

== ENCOUNTER 2018-03-05 19:23 | Inpatient (IN) | payer OTHER ==
[~2018-03-05] VITALS: Ht 193 cm; Wt 48.0 kg
[~2018-03-05 19:23] MED LIST changes: -ATOR-22 PO; -INSU100I SC; -METF-384 PO; +NVLGIPEN SC; +PROC10TA PO; -PROC1TAB5 PO; -TRIF0.27 PO
[2018-03-05] MEDS ORDERED: SODIUM CHLORIDE 0.9% 1000ML 2,000 ML IV STA (19:30)
[2018-03-05] MEDS ORDERED: HYDROmorphone INJ 1 MG/ML SYR IV STA ×2 (19:34→21:12)
--- NOTE | 2018-03-05 19:40 | EMERGENCY ROOM VISIT NOTE ---
History Report prepared by Kita: Jeanette Olguin Under the Supervision of: Dr. Ne Aguiar M.D. First contact with patient: 19:26 Chief Complaint: DEHYDRATION Stated Complaint: DEHYDRATION History of Present Illness The patient is a 47 year old male who presents to the Emergency Room with complaints of worsening dehydration beginning yesterday. He reports the last thing he ate was granola bars yesterday and he "does not feel the greatest." His stepmother reports that he had a fever of 99.6 earlier but it has resolved and his current temperature is 98.0. He denies passing any blood, vomiting or new pain. His sister notes he was admitted to [facility] because he had a mass interfering with the urostomy catheter which needed to be replaced. Patient also recently had gamma knife radiation to a brain mass. He has a history of stage IV colon cancer and is being treated for it actively by [facility]. Patient's family states he has had several treatments postponed recently due to debilitated state. He also has a history of diabetes and as per nursing staff, it was around 306. Family states patient has hospice coming in 4 days for consultation. Source of History: patient, family Onset: yesterday Position: other (global) Quality: other (dehydration) Timing: worsening Associated Symptoms: + fevers (99.6 but currently 98.0), No vomiting Note: Denies passing any blood or any new pain. Review of Systems See HPI for pertinent positives & negatives. A total of 10 systems reviewed and were otherwise negative. 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 Family History Cancer Diabetes mellitus Social History Smoking Status: Never Smoker Alcohol Use: occasionally Drug Use: none Marital Status: single, in relationship Housing Status: lives alone Occupation Status: disabled Current/Historical Medications Scheduled Diphenoxylate/Atropine (Lomotil), 1 TAB PO DIRECTED Dronabinol (Marinol), 5 MG PO BID Enoxaparin (Enoxaparin Sodium), 40 MG INJ DIRECTED Gabapentin (Neurontin), 300 MG PO TID Insulin Aspart (Novolog Flexpen), 0 UNITS SC Q6 Insulin Detemir (Levemir), 125 UNITS SC HS Olanzapine (Zyprexa), 10 MG PO DAILY Prednisone (Prednisone), 10 MG PO DIRECTED Scheduled PRN Albuterol Hfa (Ventolin Hfa), 1-2 PUFFS INH DIRECTED PRN for Shortness of Breath Haloperidol (Haldol), 0.5 MG PO DAILY PRN for Nausea Lorazepam (Ativan), 0.5 MG PO DAILY PRN for Anxiety Ondansetron (Ondansetron HCl), 8 MG PO Q8H PRN for Nausea Prochlorperazine Maleate (Compazine), 10 MG PO Q6H PRN for Nausea Tramadol HCl (Tramadol HCl), 50 MG PO DIRECTED PRN for Pain Allergies Coded Allergies: No Known Allergies (Verified , 03/05/18) Physical Exam Vital Signs Date Time Temp Pulse Resp B/P (MAP) Pulse Ox O2 Delivery O2 Flow Rate FiO2 03/05/18 22:34 148 21 104/68 97 Room Air 03/05/18 21:11 140 20 108/69 03/05/18 19:37 140 03/05/18 19:35 37.0 142 18 107/70 100 Room Air Physical Exam Vital signs reviewed. General: Chronically ill appearing, cachetic male, in some discomfort. HEENT: No scleral icterus, PERRLA. Atraumatic. Dry mucous membranes. Cardiovascular: Tachycardic rate and rhythm, no extra sounds. Pulmonary: Clear to auscultation bilaterally, normal work of breathing. Abdomen: Soft, nontender, nondistended, positive bowel sounds. Ileostomy to the right upper abdomen. Urostomy with a Ramirez catheter. Musculoskeletal: Atraumatic, no peripheral edema. Neurologic: Patient patient is awake and somnolent. He has periods of lucency but falls asleep or zones out in the middle of conversation. He is able to follow commands periodically. He moves all extremities equally. Skin: Warm, dry, no rash Medical Decision & Procedures ER Provider Diagnostic Interpretation: Radiology results as stated below per my review and radiologist interpretation: CHEST ONE VIEW PORTABLE HISTORY: dehydration, colon CA COMPARISON: Chest 01/24/2018. FINDINGS: There is again noted a right lower lobe metastatic nodule. No new focal lung consolidations to suggest pneumonia. No pleural effusions. No pneumothorax. Patient is slightly rotated on this study. The heart remains stable in size. Left subclavian Port-A-Cath terminates in the SVC. IMPRESSION: No significant change compared to the prior study. No acute process. Electronically signed by: Hao Maya M.D. 03/05/2018 8:38 PM Dictated Date/Time: 03/05/2018 8:37 PM Laboratory Results 03/05/18 20:19 Red Blood Count 3.50, Mean Corpuscular Volume 74.6, Mean Corpuscular Hemoglobin 23.4, Mean Corpuscular Hemoglobin Concent 31.4, Mean Platelet Volume 9.4, Neutrophils (%) (Auto) 91.8, Lymphocytes (%) (Auto) 2.5, Monocytes (%) (Auto) 4.4, Eosinophils (%) (Auto) 0.1, Basophils (%) (Auto) 0.1, Neutrophils # (Auto) 15.29, Lymphocytes # (Auto) 0.41, Monocytes # (Auto) 0.74, Eosinophils # (Auto) 0.01, Basophils # (Auto) 0.01 03/05/18 20:19 Test 03/05/18 20:19 03/05/18 21:10 White Blood Count 16.65 K/uL (4.8-10.8) Red Blood Count 3.50 M/uL (4.7-6.1) Hemoglobin 8.2 g/dL (14.0-18.0) Hematocrit 26.1 % (42-52) Mean Corpuscular Volume 74.6 fL (80-100) Mean Corpuscular Hemoglobin 23.4 pg (25-34) Mean Corpuscular Hemoglobin Concent 31.4 g/dl (32-36) Platelet Count 335 K/uL (130-400) Mean Platelet Volume 9.4 fL (7.4-10.4) Neutrophils (%) (Auto) 91.8 % Lymphocytes (%) (Auto) 2.5 % Monocytes (%) (Auto) 4.4 % Eosinophils (%) (Auto) 0.1 % Basophils (%) (Auto) 0.1 % Neutrophils # (Auto) 15.29 K/uL (1.4-6.5) Lymphocytes # (Auto) 0.41 K/uL (1.2-3.4) Monocytes # (Auto) 0.74 K/uL (0.11-0.59) Eosinophils # (Auto) 0.01 K/uL (0-0.5) Basophils # (Auto) 0.01 K/uL (0-0.2) RDW Standard Deviation 48.8 fL (36.4-46.3) RDW Coefficient of Variation 17.9 % (11.5-14.5) Immature Granulocyte % (Auto) 1.1 % Immature Granulocyte # (Auto) 0.19 K/uL (0.00-0.02) Toxic Granulation 1+ Schistocytes 1+ Anion Gap 15.0 mmol/L (3-11) Est Creatinine Clear Calc Drug Dose 51.7 ml/min Estimated GFR () 43.6 Estimated GFR (Non- 37.6 BUN/Creatinine Ratio 23.7 (10-20) Calcium Level 9.0 mg/dl (8.5-10.1) Phosphorus Level 4.5 mg/dl (2.5-4.9) Magnesium Level 1.3 mg/dl (1.8-2.4) Total Bilirubin 0.9 mg/dl (0.2-1) Direct Bilirubin 0.5 mg/dl (0-0.2) Aspartate Amino Transf (AST/SGOT) 18 U/L (15-37) Alanine Aminotransferase (ALT/SGPT) 15 U/L (12-78) Alkaline Phosphatase 105 U/L (45-117) Total Protein 7.5 gm/dl (6.4-8.2) Albumin 1.6 gm/dl (3.4-5.0) Lipase 105 U/L (73-393) Urine Color DK YELLOW Urine Appearance CLOUDY (CLEAR) Urine pH 5.0 (4.5-7.5) Urine Specific [place] 1.017 (1.000-1.030) Urine Protein 2+ (NEG) Urine Glucose (UA) NEG (NEG) Urine Ketones NEG (NEG) Urine Occult Blood 3+ (NEG) Urine Nitrite NEG (NEG) Urine Bilirubin NEG (NEG) Urine Urobilinogen NEG (NEG) Urine Leukocyte Esterase LARGE (NEG) Urine WBC (Auto) >30 /hpf (0-5) Urine RBC (Auto) 10-30 /hpf (0-4) Urine Hyaline Casts (Auto) 1-5 /lpf (0-5) Urine Epithelial Cells (Auto) 0-5 /lpf (0-5) Urine Bacteria (Auto) 2+ (NEG) Laboratory results per my review. Medications Administered Medications (Trade) Dose Ordered Sig/Rosie Route Start Time Stop Time Status Last Admin Dose Admin Sodium Chloride 2,000 ml @ 999 mls/hr Q2H1M STAT IV 03/05/18 19:30 03/05/18 21:30 DC 03/05/18 19:53 999 MLS/HR Hydromorphone HCl (Dilaudid Inj) 1 mg NOW STAT IV 03/05/18 19:34 03/05/18 19:35 DC 03/05/18 19:53 1 MG Magnesium Sulfate (Magnesium Sulfate 1gm / D5W) 2 gm NOW STAT IV 03/05/18 21:02 03/05/18 21:03 DC 03/05/18 21:37 2 GM Sodium Polystyrene Sulfonate (Kayexalate Susp) 60 gm NOW STAT PO 03/05/18 21:03 03/05/18 21:04 DC 03/05/18 21:37 60 GM Hydromorphone HCl (Dilaudid Inj) 1 mg NOW STAT IV 03/05/18 21:12 03/05/18 21:13 DC 03/05/18 21:38 1 MG Calcium Gluconate (Calcium Gluconate 10%) 1,000 mg NOW STAT IV 03/05/18 21:17 03/05/18 21:20 DC 03/05/18 21:39 1,000 MG Insulin Human Regular (novoLIN-R U-100 PER UNIT) 10 units NOW STAT IV 03/05/18 21:17 03/05/18 21:20 DC 03/05/18 21:40 10 UNITS Dextrose (Dextrose 50% 50ML Syringe) 25 ml NOW STAT IV 03/05/18 21:17 03/05/18 21:20 DC 03/05/18 21:39 25 ML ECG Per My Interpretation Indication: weakness Rate (beats per minute): 139 Rhythm: sinus tachycardia Findings: peaked T-waves, no acute ischemic change, left axis deviation, no ectopy ED Course 1926: Past medical records reviewed. The patient was evaluated in room C9. A complete history and physical examination was performed. 1929: Ordered Sodium Chloride 2000 ml @ 999 mls/hr IV 1933: Ordered Dilaudid Inj 1 mg IV 2101: Ordered Magnesium Sulfate 2 gm IV 2102: Ordered Sodium Polystyrene Sulfonate 60 gm 2111: Ordered Dilaudid Inj 1 mg IV 2116: Ordered Dextrose 25 ml I, Insulin Human Regular 10 units IV, Calcium Gluconate 1000 mg IV 2158 I reviewed the patient's case with Dr. Lisa Adan, [facility] Hospitalist . She will evaluate the patient for further management. Medical Decision Differential diagnosis: Etiologies such as metabolic, infection, hypo/hyperglycemia, electrolyte abnormalities, cardiac sources, intracerebral event, toxicologic, neurologic, as well as others were entertained. This patient was evaluated and appeared to be chronically ill. Patient is found to be tachycardic at 140 bpm. He was hydrated with normal saline solution 2 L IV. Patient was given IV Dilaudid 1 mg IV. Magnesium is depleted at 1.3, patient was ordered 2 g IV magnesium sulfate. Patient's tachycardia persisted. He is found to be in an acute renal insufficiency with a potassium of 7.0. EKG reveals peaked T waves and a sinus tachycardia. Patient was given 1 g of calcium gluconate IV, one half amp of D50 and 10 units of IV insulin. He has a known diabetic with a glucose of 252. Patient was given 60 g of p.o. Kayexalate. He did resist taking the medication due to taste but with encouragement from his family, he eventually did. CT scan of the head was performed due to his periodic encephalopathy. The brain mass with surrounding edema was identified decrease in size and edema. The patient's hyperkalemia may be secondary to tumor lysis. At this time, after prolonged discussions with both the patient and his family members at the bedside, the patient will be evaluated by the hospitalist for hydration, electrolyte repletion, hopefully stabilization of his potassium without invasive treatments and palliative care consultation. It was felt by family members that the patient would not be able to tolerate dialysis. Discussions regarding resuscitation status were had on several occasions with the patient. His goals are not clear at this time. Discussions with the patient's mother indicate they are leaning to a DNR. The patient does not have a clear power of deputy prosecuting attorney however is next of kin would be his mother as he is not and has no children. Medication Reconcilliation Current Medication List: was personally reviewed by me Blood Pressure Screening Patient's blood pressure: Elevated blood pressure Blood pressure disposition: Referred to PCP Consults Time Called: 2157 Consulting Physician: Dr. Lisa Adan, [facility] Hospitalist Returned Call: 2158 I reviewed the patient's case with Dr. Lisa Adan [facility] Hospitalist . She will evaluate the patient for further management. Impression Primary Impression: Hyperkalemia Additional Impressions: Dehydration Tachycardia History of colon cancer, stage IV UTI (urinary tract infection) Critical Care I have personally spent greater than 90 minutes of critical care time in the direct management of this patient. This includes bedside care, interpretation of diagnostic studies, and testing, discussion with consultants, patient, and family members, and other required patient management activities. This 90 minutes is in excess of all separately billable procedures. Scribe Attestation The scribe's documentation has been prepared under my direction and personally reviewed by me in its entirety. I confirm that the note above accurately reflects all work, treatment, procedures, and medical decision making performed by me. Departure Information Dispostion Being Evaluated By Hospitalist (Dr. Lisa Adan, [facility] Hospitalist) Referrals Ozzie Cohen M.D. (PCP) Patient Instructions My [facility] Problem Qualifiers
[2018-03-05] MEDS ORDERED: VNTHFA/IN INH (20:22)
[2018-03-05] MEDS ORDERED: PRED10TA PO (20:22)
[2018-03-05] MEDS ORDERED: ULT50 PO (20:22)
[2018-03-05] MEDS ORDERED: LVNIS40 INJ (20:22)
[2018-03-05] MEDS ORDERED: DIPH-416 PO (20:22)
[2018-03-05 20:38] LABS: HEMATOCRIT 26.1 % (42-52); HEMOGLOBIN 8.2 g/dL (14.0-18.0); MEAN CELL VOLUME 74.6 fL (80-100); MEAN CORPUSCULAR HEMOGLOBIN 23.4 pg (25-34); MEAN CORPUSCULAR HGB CONC 31.4 g/dl (32-36); MEAN PLATELET VOLUME 9.4 fL (7.4-10.4); PLATELET COUNT 335 K/uL (130-400); RED CELL DISTRIBUTION WIDTH CV 17.9 % (11.5-14.5); RED CELL DISTRIBUTION WIDTH SD 48.8 fL (36.4-46.3); WHITE BLOOD COUNT 16.65 K/uL (4.8-10.8)
--- NOTE | 2018-03-05 20:40 | DIAGNOSTIC IMAGING REPORT ---
CHEST ONE VIEW PORTABLE HISTORY: dehydration, colon CA COMPARISON: Chest 01/24/2018. FINDINGS: There is again noted a right lower lobe metastatic nodule. No new focal lung consolidations to suggest pneumonia. No pleural effusions. No pneumothorax. Patient is slightly rotated on this study. The heart remains stable in size. Left subclavian Port-A-Cath terminates in the SVC. IMPRESSION: No significant change compared to the prior study. No acute process. Electronically signed by: Hao Maya M.D. 03/05/2018 8:38 PM Dictated Date/Time: 03/05/2018 8:37 PM
[2018-03-05 21:01] LABS: CREATININE 2.03 mg/dl (0.60-1.40)
[2018-03-05] MEDS ORDERED: MAGNESIUM SULFATE 1GM / D5W 1 GM BAG IV STA (21:02)
[2018-03-05 21:03] LABS: PHOSPHORUS 4.5 mg/dl (2.5-4.9); TOTAL PROTEIN 7.5 gm/dl (6.4-8.2)
[2018-03-05] MEDS ORDERED: SODIUM POLYST. SULF SUSP 15G/60ML PO STA (21:03)
[2018-03-05 21:04] LABS: BASO % 0.1 %; BASO ABS # 0.01 K/uL (0-0.2); EOS % 0.1 %; EOS ABS # 0.01 K/uL (0-0.5); IG# 0.19 K/uL (0.00-0.02); LYMPH % 2.5 %; LYMPH ABS # 0.41 K/uL (1.2-3.4); MONO % 4.4 %; MONO ABS # 0.74 K/uL (0.11-0.59); NEUT % 91.8 %; NEUT ABS # 15.29 K/uL (1.4-6.5)
[2018-03-05] MEDS ORDERED: DEXTROSE 50% 50 ML SYR IV STA (21:17)
[2018-03-05] MEDS ORDERED: CALCIUM GLUCONATE 10% 10 ML VIAL IV STA (21:17)
[2018-03-05] MEDS ORDERED: NovoLIN-R INSULIN PER UNIT CHARGE IV STA (21:17)
[2018-03-05 21:42] LABS: ALBUMIN 1.6 gm/dl (3.4-5.0)
--- NOTE | 2018-03-05 22:46 | DIAGNOSTIC IMAGING REPORT ---
HEAD CT NONCONTRAST CT DOSE: 1228.53 mGy.cm HISTORY: Altered mental status, mets colon CA TECHNIQUE: Multiaxial CT images of the head were performed without the use of intravenous contrast. Automated exposure control was utilized for this study. A dose lowering technique was utilized adhering to the principles of ALARA. Comparison: Head CT 01/26/2018. Findings: Mild mucosal thickening within the left max a sinus and partial opacification of the left ethmoid air cells. The mastoid air cells are clear. Small fluid level within the left maxillary sinus. The calvarium and skull base are intact. No acute infarct or midline shift. Decrease in size in the 2.5 x 2.0 cm left cerebellar hyperdense/hemorrhagic metastatic lesion. The surrounding vasogenic edema within the left cerebellar hemisphere has also improved. There is 50-75% effacement of the fourth ventricle. This has also improved in the interval. No new metastatic lesions identified the brain on this noncontrast study. Mild left cerebellar tonsillar herniation is stable to improved. Mild mass effect along the owen has also improved. The lateral ventricles are normal in size which has improved. Impression: Decrease in size in the 2.5 x 2.0 cm left cerebellar hemorrhagic metastatic lesion and improvement in the surrounding vasogenic edema. This results in improvement in the effacement of the fourth ventricle, decreased size of the lateral ventricles, and improved mass effect along the brainstem and left cerebellar tonsillar herniation. Electronically signed by: Hao Maya M.D. 03/05/2018 10:44 PM Dictated Date/Time: 03/05/2018 10:39 PM
--- NOTE | 2018-03-05 23:07 | DIAGNOSTIC IMAGING REPORT ---
ABDOMEN AND PELVIS CT WITHOUT CONTRAST CT DOSE: 635.69 mGy.cm HISTORY: acute renal failure, ? obstruction kidney, urostomy, ileostomy TECHNIQUE: Multiaxial CT images of the abdomen and pelvis were performed without contrast. A dose lowering technique was utilized adhering to the principles of ALARA. COMPARISON STUDY: Abdomen and pelvis CT 01/24/2018. FINDINGS: Multiple bilateral metastatic pulmonary nodules are again noted. These are similar to the prior study. Dominant right lower lobe lesion measures 1.4 cm. No suspicious lytic or blastic osseous lesions. No definite hepatic or splenic lesions on this noncontrast study. There are few small gallstones. Normal left adrenal gland and pancreas. Stable splenomegaly. No significant change in the 7.5 cm right adrenal gland metastasis. Mild fullness within the right renal collecting system without vitaly hydronephrosis. There is a left ureteral stent which appears to be in good position. This extends into the urostomy bag. Patient is status post cystoprostatectomy with ileal loop diversion. Left lower quadrant colostomy site is again noted. Retroperitoneal and right common iliac lymphadenopathy remains unchanged. Dominant left retroperitoneal lymph node measures 2.3 x 1.3 cm. No evidence for bowel obstruction. There is an abnormal fluid collection inferior to the coccyx which contains a small amount of gas. This measures 4.1 x 2.6 cm. There is partial erosion of the coccyx, unchanged. This fluid collection has slightly increased in size. There is an additional gas and fluid collection within the lower pelvis/perineum some of which abuts the anastomotic suture of the adjacent bowel. This is best seen on image 519 and measures 3.9 x 3.9 cm. Therefore, this is concerning for an anastomotic leak/abscess. There is an additional cluster of gas bubbles seen within the left perineal soft tissues. This is not completely imaged on this study. This is best in image 561. At the ileostomy site there or multiple gas bubbles seen along the right peristomal location which measure 6.7 cm in length. This resides within the subcutaneous fat and is consistent with a fistula. This is best seen on images 238 through 286. A developing abscess could also have a similar appearance. Mild bilateral perinephric fat stranding. IMPRESSION: 1. No significant change in the metastatic disease as described above. 2. Mild bilateral perinephric fat stranding. This raises the possibility of a pyelonephritis. 3. Mild fullness within the right renal collecting system without hydronephrosis. The right ureter is normal in caliber. A left ureteral stent is in good position. 4. Linear foci of gas seen within the right peristomal subcutaneous fat likely representing a fistula extending from the ileostomy. A developing abscess could also have a similar appearance. 5. There is a 3.9 x 3.9 cm gas and fluid collection within the deep perineum which abuts the anastomotic suture material of the adjacent bowel. Therefore, this is concerning for an anastomotic leak/abscess. 6. There is also an adjacent 4.1 x 2.6 cm fluid collection within the posterior perineum which abuts the distal sacrum. This is also worrisome for an abscess. This results in erosion of the coccyx which remains unchanged. 7. Focus of gas within the subcutaneous fat at the deep perineum which is only partially visualized. This could represent a fistula from the suspected abscesses. A necrotizing fasciitis could also have a similar appearance. Electronically signed by: Hao Maya M.D. 03/05/2018 11:05 PM Dictated Date/Time: 03/05/2018 10:44 PM
[2018-03-05] MEDS ORDERED: CARBOHYDRATES FOR HYPOGLYCEMIA PO PRN (23:45)
[2018-03-05] MEDS ORDERED: LORAZEPAM 0.5 MG TAB PO PRN (23:45)
[2018-03-05] MEDS ORDERED: GLUCAGON FOR INJ 1 MG VIAL SQ PRN (23:45)
[2018-03-05] MEDS ORDERED: ONDANSETRON 8 MG TAB PO PRN (23:45)
[2018-03-05] MEDS ORDERED: GLUCOSE 40% GEL 15 GM TUBE PO PRN (23:45)
[2018-03-05] MEDS ORDERED: GLUCOSE 10 TABS/TUBE PO PRN (23:45)
[2018-03-05] MEDS ORDERED: PROCHLORPERAZINE MALEATE 10 MG TAB PO PRN (23:45)
[2018-03-05] MEDS ORDERED: ALBUTEROL HFA 8 GM INHALER INH PRN (23:45)
[2018-03-05] MEDS ORDERED: DEXTROSE 50% 50 ML SYR IV PRN (23:45)
[2018-03-05] MEDS ORDERED: HALOPERIDOL 0.5 MG TAB PO PRN (23:45)
--- NOTE | 2018-03-05 23:54 | History and Physical ---
History & Physical Date & Time of Service: March 05, 2018 at 22:59 Chief Complaint: Dehydration Primary Care Physician: Ozzie Cohen M.D. History of Present Illness Mr. Rose is a 47yo C male with prolonged and complicated history of metastatic colon adenocarcinoma. He was diagnosed in May 2010 and was treated with chemotherapy, XRT x 6 weeks and 5-FU. He had a LAR performed on and was treated with FOLFOX from 11/2010-02/2011. He had recurrent metastatic disease and underwent resection of liver metastases and colonic resection. He has a colostomy and urostomy bag in place. 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 He had gamma knife surgery performed in [place] 4 weeks ago. Patient is brought to the ER tonight by his family. He has had no oral intake of food/liquid or medications for the last 5-6 days. His family reports that he has been very weak, unable to ambulate by himself. He is also more sleepy and less responsive. In the ER he was tachycardic with HR in 140's sustained, BP 108/69. His labs reveal K of 7, BUN of 48 and Cr of 2.03. EKG with peaked T -waves present. He was administered Calcium gluconate/Insulin and D50. He has refused to take Kayexelate stating that it tastes too bad. Family at bedside to include mother, stepmother and sister Past Medical/Surgical History Medical Problems: 1. Colon cancer with metastases to the liver, brain 2. Colostomy 3. VERONICA 4. Anemia 5. Complicated UTI 6. DM Past Surgical History 1. LAR 2. Colostomy x 2 3. Urostomy 4. Resection of liver mets 5. Amputation of right 4th toe Family History Cancer Diabetes mellitus Social History Smoking Status: Never Smoker Alcohol Use: occasionally Drug Use: none Marital Status: single Housing status: lives alone Occupational Status: employed Immunizations History of Influenza Vaccine: Yes Influenza Vaccine Date: Jul 26, 2013 History of Tetanus Vaccine?: utd History of Pneumococcal: Unknown History of Hepatitis B Vaccine: No Allergies Coded Allergies: No Known Allergies (Verified , 03/05/18) Home Medications Scheduled Diphenoxylate/Atropine (Lomotil), 1 TAB PO DIRECTED Dronabinol (Marinol), 5 MG PO BID Enoxaparin (Enoxaparin Sodium), 40 MG INJ DIRECTED Gabapentin (Neurontin), 300 MG PO TID Insulin Aspart (Novolog Flexpen), 0 UNITS SC Q6 Insulin Detemir (Levemir), 125 UNITS SC HS Olanzapine (Zyprexa), 10 MG PO DAILY Prednisone (Prednisone), 10 MG PO DIRECTED Scheduled PRN Albuterol Hfa (Ventolin Hfa), 1-2 PUFFS INH DIRECTED PRN for Shortness of Breath Haloperidol (Haldol), 0.5 MG PO DAILY PRN for Nausea Lorazepam (Ativan), 0.5 MG PO DAILY PRN for Anxiety Ondansetron (Ondansetron HCl), 8 MG PO Q8H PRN for Nausea Prochlorperazine Maleate (Compazine), 10 MG PO Q6H PRN for Nausea Tramadol HCl (Tramadol HCl), 50 MG PO DIRECTED PRN for Pain Review of Systems Patient not answering questions. ROS obtained from family. Constitutional: + fatigue, No fever, No chills Eyes: No worsening of vision ENT: No hearing loss Respiratory: No cough, No sputum, No wheezing, No shortness of breath Cardiovascular: No chest pain, No palpitations Abdomen: No pain, No nausea, No vomiting, No diarrhea, No constipation, No GI bleeding Genitourinary - Male: No hematuria, No dysuria Neurologic: + weakness Endocrine: + fatigue Hematologic / Lymphatic: No abnormal bleeding/bruising, No clotting problems Integumentary: No rash, No itch Physical Exam Vital Signs Date Time Temp Pulse Resp B/P (MAP) Pulse Ox O2 Delivery O2 Flow Rate FiO2 03/05/18 22:34 148 21 104/68 97 Room Air 03/05/18 21:11 140 20 108/69 03/05/18 19:37 140 03/05/18 19:35 37.0 142 18 107/70 100 Room Air General: patient chronically ill appearing, somnolent, arousable, oriented to person and place Skin: no rashes/bruises/lesions HEENT: PERRL, anicteric sclera, dry mucus membranes, neck supple, no JVD, no thyromegaly Heart: +S1/S2, regular, tachycardic, no m/r/g Lungs: equal air entry bilaterally, no rales/rhonchi or wheezes Abdomen: +BS, soft, colostomy/ileostomy in place with output, urostomy in place with urine +sediment Ext: no edema Neuro: exam limited, PERRL, moving 4 extremities with equal strength Diagnostics Laboratory Results Results Past 24 Hours Test 03/05/18 20:19 03/05/18 21:10 Range/Units White Blood Count 16.65 4.8-10.8 K/uL Red Blood Count 3.50 4.7-6.1 M/uL Hemoglobin 8.2 14.0-18.0 g/dL Hematocrit 26.1 42-52 % Mean Corpuscular Volume 74.6 80-100 fL Mean Corpuscular Hemoglobin 23.4 25-34 pg Mean Corpuscular Hemoglobin Concent 31.4 32-36 g/dl Platelet Count 335 130-400 K/uL Mean Platelet Volume 9.4 7.4-10.4 fL Neutrophils (%) (Auto) 91.8 % Lymphocytes (%) (Auto) 2.5 % Monocytes (%) (Auto) 4.4 % Eosinophils (%) (Auto) 0.1 % Basophils (%) (Auto) 0.1 % Neutrophils # (Auto) 15.29 1.4-6.5 K/uL Lymphocytes # (Auto) 0.41 1.2-3.4 K/uL Monocytes # (Auto) 0.74 0.11-0.59 K/uL Eosinophils # (Auto) 0.01 0-0.5 K/uL Basophils # (Auto) 0.01 0-0.2 K/uL RDW Standard Deviation 48.8 36.4-46.3 fL RDW Coefficient of Variation 17.9 11.5-14.5 % Immature Granulocyte % (Auto) 1.1 % Immature Granulocyte # (Auto) 0.19 0.00-0.02 K/uL Toxic Granulation 1+ Schistocytes 1+ Sodium Level 127 136-145 mmol/L Potassium Level 7.0 3.5-5.1 mmol/L Chloride Level 101 98-107 mmol/L Carbon Dioxide Level 11 21-32 mmol/L Anion Gap 15.0 3-11 mmol/L Blood Urea Nitrogen 48 7-18 mg/dl Creatinine 2.03 0.60-1.40 mg/dl Est Creatinine Clear Calc Drug Dose 51.7 ml/min Estimated GFR () 43.6 Estimated GFR (Non- 37.6 BUN/Creatinine Ratio 23.7 10-20 Random Glucose 252 70-99 mg/dl Calcium Level 9.0 8.5-10.1 mg/dl Phosphorus Level 4.5 2.5-4.9 mg/dl Magnesium Level 1.3 1.8-2.4 mg/dl Total Bilirubin 0.9 0.2-1 mg/dl Direct Bilirubin 0.5 0-0.2 mg/dl Aspartate Amino Transf (AST/SGOT) 18 15-37 U/L Alanine Aminotransferase (ALT/SGPT) 15 12-78 U/L Alkaline Phosphatase 105 45-117 U/L Total Protein 7.5 6.4-8.2 gm/dl Albumin 1.6 3.4-5.0 gm/dl Lipase 105 73-393 U/L Urine Color DK YELLOW Urine Appearance CLOUDY CLEAR Urine pH 5.0 4.5-7.5 Urine Specific [place] 1.017 1.000-1.030 Urine Protein 2+ NEG Urine Glucose (UA) NEG NEG Urine Ketones NEG NEG Urine Occult Blood 3+ NEG Urine Nitrite NEG NEG Urine Bilirubin NEG NEG Urine Urobilinogen NEG NEG Urine Leukocyte Esterase LARGE NEG Urine WBC (Auto) >30 0-5 /hpf Urine RBC (Auto) 10-30 0-4 /hpf Urine Hyaline Casts (Auto) 1-5 0-5 /lpf Urine Epithelial Cells (Auto) 0-5 0-5 /lpf Urine Bacteria (Auto) 2+ NEG Microbiology Results 03/05/18 Blood Culture, Received Pending 03/05/18 Blood Culture, Received Pending 03/05/18 Urine Culture, Received Pending Diagnostic Radiology HEAD CT NONCONTRAST CT DOSE: 1228.53 mGy.cm HISTORY: Altered mental status, mets colon CA TECHNIQUE: Multiaxial CT images of the head were performed without the use of intravenous contrast. Automated exposure control was utilized for this study. A dose lowering technique was utilized adhering to the principles of ALARA. Comparison: Head CT 01/26/2018. Findings: Mild mucosal thickening within the left max a sinus and partial opacification of the left ethmoid air cells. The mastoid air cells are clear. Small fluid level within the left maxillary sinus. The calvarium and skull base are intact. No acute infarct or midline shift. Decrease in size in the 2.5 x 2.0 cm left cerebellar hyperdense/hemorrhagic metastatic lesion. The surrounding vasogenic edema within the left cerebellar hemisphere has also improved. There is 50-75% effacement of the fourth ventricle. This has also improved in the interval. No new metastatic lesions identified the brain on this noncontrast study. Mild left cerebellar tonsillar herniation is stable to improved. Mild mass effect along the owen has also improved. The lateral ventricles are normal in size which has improved. Impression: Decrease in size in the 2.5 x 2.0 cm left cerebellar hemorrhagic metastatic lesion and improvement in the surrounding vasogenic edema. This results in improvement in the effacement of the fourth ventricle, decreased size of the lateral ventricles, and improved mass effect along the brainstem and left cerebellar tonsillar herniation. CHEST ONE VIEW PORTABLE HISTORY: dehydration, colon CA COMPARISON: Chest 01/24/2018. FINDINGS: There is again noted a right lower lobe metastatic nodule. No new focal lung consolidations to suggest pneumonia. No pleural effusions. No pneumothorax. Patient is slightly rotated on this study. The heart remains stable in size. Left subclavian Port-A-Cath terminates in the SVC. IMPRESSION: No significant change compared to the prior study. No acute process. Electronically signed by: Hao Maya M.D. 03/05/2018 8:38 PM Dictated Date/Time: 03/05/2018 8:37 PM Impression Assessment and Plan 47yo C male with adenocarcinoma of the colon with metastases to the liver and brain presenting with failure to thrive, VERONICA with severe hyperkalemia K=7 with EKG changes 1. Hyperkalemia - K=7, EKG changes present. Patient has been treated with Calcium gluconate, Insulin/D50 for temporary mitigation. He was given Kayexelate but refuses to drink it stating that it tastes terrible. I had a lengthy discussion with the patient and family stating that his present level of potassium will most likely kill him if not properly treated. He still refuses to drink the kayexelate. His mother feels that he is giving up and wanting to at this time. -check PO4, Uric Acid -encourage patient to take Kayexelate -IVF NSS at 150mL/hr -Repeat labs q 8 hours 2. Tachycardia - sinus tachycardia at 140bpm, most likely secondary to volume contraction, also consider anemia (Hg=8.2 which is near baseline but may also be hemoconcentrated). No active bleeding. No evidence of hemolysis -Repeat CBC in AM -No transfusion at this time 3. Leukocytosis - patient denies fevers but has had some chills. Source unclear. Blood cultures and urine cultures have been sent from the ER -Repeat CBC in AM -Will hold empiric antibiotics at this time 4. VERONICA - patient with elevated BUN=48, Cr=2.03. Most likely secondary to volume contraction, poor po intake -IVF, NSS at 150mL/hr -Monitor UOP -Repeat labs q 8 hours 5. Hyponatremia - Rz=038, most likely hypovolemic hyponatremia secondary to poor po intake -NSS as above -Repeat labs as above 6. Diabetes - BS presently 252 -Continue home insulin -Fingersticks q6 hours 7. Metastatic colon cancer - patient is followed by Dr. Santillan here and primarily seen at [place]. He was scheduled to be evaluated by Hospice on Thursday for home hospice. Will control pain and nausea for now -Palliative care consultation 8. F/E/N - NSS at 150mL/hr, monitor electrolytes and correct as able, regular diet as tolerated 9. Ppx - Lovenox for DVT ppx 10. Code - patient states that he wishes to be full code at this time. Given the extent of patient's medical illness as well as his progressive decline I feel that he would most benefit from comfort care measures at this time. We will treat with fluids and electrolyte management as above for overnight. Hopefully the patient's mental status will improve with these therapies so he can be a more active participant in Code discussion and care plan tomorrow. We will consult Palliative care in the morning to help facilitate this process. Patient and family are well aware that his current medical condition of hyperkalemia is fatal if left untreated. Resuscitation Status FULL VTE Prophylaxis Will order VTE Prophylaxis: Yes
[2018-03-06] MEDS ORDERED: PHARMACY GLYCEMIC MGMT CONSULT PRN (00:15)
[2018-03-06 00:40] VITALS: BP 98/68; PULSE 145; TEMP 36.8; O2SAT 99; Ht 193 cm; Wt 48.0 kg
[2018-03-06] MEDS ORDERED: SODIUM CHLORIDE 0.9% 1000ML 1,000 ML IV SCH (00:45)
[2018-03-06 00:49] LABS: PHOSPHORUS 4.3 mg/dl (2.5-4.9); URIC ACID 6.7 mg/dl (2.6-7.2)
[2018-03-06] MEDS: INSULIN ASPART 100 UNITS/ML 3 ML PEN SC SCH ×2 (00:58→03:08)
[2018-03-06] MEDS ORDERED: INSULIN DETEMIR SC SCH (01:00)
[2018-03-06 01:02] LABS: INR 1.2 (0.9-1.1)
[2018-03-06] MEDS ORDERED: MoRPHine SULFATE 4 MG/ML 1 ML CARP\\VIAL IV PRN ×2 (01:30→03:00)
[2018-03-06] MEDS ORDERED: SODIUM CHLORIDE 0.9% 500ML 500 ML IV ONE (01:30)
[2018-03-06] MEDS ORDERED: SODIUM CHLORIDE 0.9% 500ML 500 ML IV SCH (01:30)
[2018-03-06 03:00] VITALS: BP 98/63; PULSE 145; TEMP 36.9; O2SAT 98
[2018-03-06] MEDS ORDERED: LIDODERM (LIDOCAINE) PATCH 5% TD SCH ×2 (03:15→09:00)
[2018-03-06] MEDS ORDERED: VANCOMYCIN CONSULT ACTIVE PRN (03:30)
[2018-03-06] MEDS ORDERED: PIPERACILL/TAZOBAC CONSULT ACTIVE PRN (03:30)
[2018-03-06] MEDS ORDERED: VANCOMYCIN IV 2,000 MG in SODIUM CHLORIDE 0.9% 500ML 500 ML IV ONE (04:00)
[2018-03-06] MEDS ORDERED: PIPERACILL/TAZOBAC IV 3.375 GM in DEXTROSE 5% 100ML 100 ML IV ONE (04:00)
[2018-03-06] MEDS ORDERED: HYDROmorphone INJ 0.5 MG/0.5 ML SYR IV ONE (04:00)
[2018-03-06 04:34] LABS: CALCIUM 8.9 mg/dl (8.5-10.1); CREATININE 1.76 mg/dl (0.60-1.40); POTASSIUM 6.2 mmol/L (3.5-5.1)
[2018-03-06 06:15] VITALS: BP 86/51; PULSE 144; TEMP 37; O2SAT 97
[2018-03-06] MEDS ORDERED: INSULIN ASPART 100 UNITS/ML 3 ML PEN SC SCH (07:00)
--- NOTE | 2018-03-06 07:32 | Family Medicine Progress Note ---
Progress Note Date of Service March 06, 2018. Subjective sister and step mother at bedside patient restless and confused Objective Physical Exam General Appearance: + moderate distress, + cachetic Eyes: PERRL ENT: hearing grossly normal Respiratory/Chest: lungs clear, no respiratory distress Cardiovascular: regular rate, rhythm (tachycardic) Abdomen: soft (with mutliple ostomies) Neurologic/Psychiatric: alert (confused) Skin: warm/dry Assessment and Plan 47yo C male with adenocarcinoma of the colon with metastases to the liver and brain presenting with failure to thrive, VERONICA with severe hyperkalemia K=7 with EKG changes 1. Hyperkalemia - K - continued to be elevated despite being treated with Calcium gluconate, Insulin/D50 for temporary mitigation. Refused Kayexelate. Aware of poor prognosis and imminent reviewed. IVF continued. 2. Tachycardia - sinus tachycardia at 140bpm, most likely secondary to volume contraction, also consider anemia (Hg=8.2 which is near baseline but may also be hemoconcentrated). No active bleeding. No evidence of hemolysis -Repeat CBC in AM -No transfusion at this time 3. Leukocytosis - patient denies fevers but has had some chills. Source unclear. Blood cultures and urine cultures have been sent from the ER. 4. VERONICA - patient with elevated BUN=48, Cr=2.03. Most likely secondary to volume contraction, poor po intake -IVF, NSS at 150mL/hr -Monitor UOP -Repeat labs q 8 hours 5. Hyponatremia - Rr=153, most likely hypovolemic hyponatremia secondary to poor po intake -NSS as above -Repeat labs as above 6. Diabetes - BS presently 252 -Continue home insulin -Fingersticks q6 hours 7. Metastatic colon cancer - patient is followed by Dr. Santillan here and primarily seen at [place]. He was scheduled to be evaluated by Hospice on Thursday for home hospice. Will control pain and nausea for now 8. F/E/N - NSS at 150mL/hr, monitor electrolytes and correct as able, regular diet as tolerated 9. Ppx - Lovenox for DVT ppx 10. Code - Discussed code status and overall prognosis further. Patient and family agreable to be DNR and pursuing comfort care. Patient transferred to medical floor Reviewed: Pt Seen/Exam by Me Assessment/Plan Resident Physician Supervision Note: I independently interviewed and examined the patient and verified the claros history and physical, reviewed labs and image studies, discussed the case with the resident Dr. Ortiz and agree with the findings and care plan Reviewed poor prognosis with patient, sister and step mother - resuscitation level reviewed - switched to DNR and moved to medical floor for comfort care
--- NOTE | 2018-03-06 08:52 | Pharmacy Progress Note ---
Pharmacy Abx Dose Short Note Date of Service March 06, 2018. Assessment & Plan Assessment * 47 year old male with complicated past medical hx admitted for failure to thrive, decreased PO intake x5-6 days, dehydration, VERONICA, hyperkalemia * PMH significant for colon CA w/ mets, h/o colon resections x 2, h/o liver resection, h/o gamma knife for brain mets ~4wks ago * Empiric abx therapy initiated for possible intraabd infxn (possible abscesses , necrotizing fasciitis on CT abd read) * NS IV hydration initiated * BP's trending down, tachycardia continues * SCr trending down slightly, 775cc U.O. documented thus far today Plan Vancomycin * 2000mg (~25mg/kg) load x 1 given @0455 this AM * estimated half-life ~13+ hours * labs are being checked Q 8 hours, will add random vanco level to 2200 labs and redose if level 15-20mcg/mL * hesitant to prescribe a maintenance dose at this time given changing renal fxn and potential nephrotoxic risks associated vanco + zosyn combo Zosyn * 3.375gm IV load over 30min then begin 3.375gm over 4 hours Q 8 hrs for eCrcl > 20cc/min, BMI < 35 Other considerations: * If necrotizing fasciitis is a possibility, one should consider adding clindamycin IV for anti-toxin effect Pharmacy will continue to follow and will adjust dose/frequency as necessary. Thank you.
[2018-03-06] MEDS ORDERED: GABAPENTIN 300 MG CAP PO SCH (09:00)
[2018-03-06] MEDS ORDERED: OLANZAPINE 10 MG TAB PO SCH (09:00)
[2018-03-06] MEDS ORDERED: ENOXAPARIN 40 MG/0.4 ML SYR SC SCH (09:00)
[2018-03-06] MEDS ORDERED: PIPERACILL/TAZOBAC IV 3.375 GM in DEXTROSE 5% 100ML 100 ML IV SCH (10:00)
--- NOTE | 2018-03-06 10:21 | Surgery Consultation ---
Consultation Date of Consultation: March 06, 2018. Attending Physician: Paola Horta M.D. History of Present Illness pt and his history known to me. end stage metastatic adenocarcinoma. pt has recently had gamma knife surgery to brain mets as well as a new diverting stoma for some sort of "leak". he is brought in dehydrated with UTI and hyperkalemia. family has hospice consult arranged already for this Thursday. Past Medical/Surgical History Medical Problems: (1) Dehydration Status: Acute (2) Elevated lactic acid level Status: Acute (3) History of colon cancer, stage IV Status: Acute (4) Hyperkalemia Status: Acute (5) Pyelonephritis Status: Acute (6) Tachycardia Status: Acute (7) UTI (urinary tract infection) Status: Acute Family History Cancer Diabetes mellitus Social History Smoking Status: Never Smoker Alcohol Use: occasionally Drug Use: none Marital Status: single, in relationship Housing Status: lives alone Occupation Status: disabled Allergies Coded Allergies: No Known Allergies (Verified , 03/05/18) Home Medications Scheduled Diphenoxylate/Atropine (Lomotil), 1 TAB PO DIRECTED Dronabinol (Marinol), 5 MG PO BID Enoxaparin (Enoxaparin Sodium), 40 MG INJ DIRECTED Gabapentin (Neurontin), 300 MG PO TID Insulin Aspart (Novolog Flexpen), 0 UNITS SC Q6 Insulin Detemir (Levemir), 125 UNITS SC HS Olanzapine (Zyprexa), 10 MG PO DAILY Prednisone (Prednisone), 10 MG PO DIRECTED Scheduled PRN Albuterol Hfa (Ventolin Hfa), 1-2 PUFFS INH DIRECTED PRN for Shortness of Breath Haloperidol (Haldol), 0.5 MG PO DAILY PRN for Nausea Lorazepam (Ativan), 0.5 MG PO DAILY PRN for Anxiety Ondansetron (Ondansetron HCl), 8 MG PO Q8H PRN for Nausea Prochlorperazine Maleate (Compazine), 10 MG PO Q6H PRN for Nausea Tramadol HCl (Tramadol HCl), 50 MG PO DIRECTED PRN for Pain Current Inpatient Medications Current Inpatient Medications Medications (Trade) Dose Ordered Sig/Rosie Route Start Time Stop Time Status Last Admin Dose Admin Albuterol (Ventolin Hfa Inhaler) 2 puffs Q4 PRN INH 03/05/18 23:45 04/04/18 23:44 Enoxaparin Sodium (Lovenox Inj) 40 mg DAILY SC 03/06/18 09:00 04/05/18 08:59 03/06/18 07:47 40 MG Gabapentin (Neurontin Cap) 300 mg TID PO 03/06/18 09:00 04/05/18 08:59 Haloperidol (Haldol Tab) 0.5 mg DAILY PRN PO 03/05/18 23:45 04/04/18 23:44 Lorazepam (Ativan Tab) 0.5 mg DAILY PRN PO 03/05/18 23:45 04/04/18 23:44 Olanzapine (Zyprexa Tab) 10 mg DAILY PO 03/06/18 09:00 04/05/18 08:59 Ondansetron HCl (Zofran Tab) 8 mg Q8H PRN PO 03/05/18 23:45 04/04/18 23:44 Prednisone (PredniSONE TAB) 10 mg DAILY PO 03/06/18 09:00 04/05/18 08:59 Prochlorperazine Maleate (Compazine Tab) 10 mg Q6H PRN PO 03/05/18 23:45 04/04/18 23:44 Insulin Detemir (Levemir Insulin) 125 units HS SC 03/06/18 01:00 04/05/18 00:59 03/06/18 01:02 125 UNITS Sodium Chloride 1,000 ml @ 150 mls/hr Q6H40M IV 03/06/18 00:45 03/06/18 20:44 03/06/18 00:56 150 MLS/HR Insulin Aspart (novoLOG ASPART) SLIDING SCALE If C... ACHS SC 03/06/18 07:00 04/05/18 06:59 03/06/18 07:57 5 UNITS Glucose (Glucose 40% Gel) 15-30 GRAMS 15 GRAMS... UD PRN PO 03/05/18 23:45 04/04/18 23:44 Glucose (Glucose Chew Tab) 4-8 Tablets 4 Tabl... UD PRN PO 03/05/18 23:45 04/04/18 23:44 Dextrose (Dextrose 50% 50ML Syringe) 25-50ML 25ML FOR ... UD PRN IV 03/05/18 23:45 04/04/18 23:44 Glucagon (Glucagon Inj) 1 mg UD PRN SQ 03/05/18 23:45 04/04/18 23:44 Carbohydrates (Carbohydrates For Hypoglycemia) 15-30 GRAMS 15 grams if BSG 54-69... UD PRN PO 03/05/18 23:45 04/04/18 23:44 Miscellaneous Information (Consult Glycemic Management Pharmacy) 1 ea UD PRN N/A 03/06/18 00:15 04/05/18 00:14 Miscellaneous (Remove Lidoderm Patch) 1 ea DAILY@21 N/A 03/06/18 21:00 04/05/18 20:59 Lidocaine (Lidoderm Patch 5%) 1 patch QAM TD 03/06/18 03:15 04/05/18 03:14 03/06/18 03:25 1 PATCH Morphine Sulfate (MoRPHine SULFATE INJ) 2 mg Q2HWA PRN IV 03/06/18 03:00 03/20/18 01:29 03/06/18 03:12 2 MG Piperacillin Sod/ Tazobactam Sod 3.375 gm/Dextrose 115 ml @ 28.75 mls/ hr Q8H IV 03/06/18 10:00 03/16/18 09:59 Miscellaneous Information (Consult) 1 ea UD PRN N/A 03/06/18 03:30 04/05/18 03:29 Miscellaneous Information (Consult) 1 ea UD PRN N/A 03/06/18 03:30 04/05/18 03:29 Review of Systems Constitutional: + weight loss, + weakness, + fatigue Abdomen: + problem reported (leaking at stoma) Physical Exam Date Time Temp Pulse Resp B/P (MAP) Pulse Ox O2 Delivery O2 Flow Rate FiO2 03/06/18 08:00 Room Air 03/06/18 06:15 37.0 144 18 86/51 (63) 97 Room Air 03/06/18 04:00 Room Air 03/06/18 03:00 36.9 145 20 98/63 (75) 98 Room Air 03/06/18 00:40 36.8 145 22 98/68 99 Room Air 03/06/18 00:20 142 24 114/75 96 03/05/18 22:34 148 21 104/68 97 Room Air 03/05/18 21:11 140 20 108/69 03/05/18 19:37 140 03/05/18 19:35 37.0 142 18 107/70 100 Room Air General Appearance: + cachetic, + pertinent finding (somnolent. arousable but not coherent. ) Neck: no JVD Respiratory/Chest: no respiratory distress Skin: warm/dry Laboratory Results Last 24 Hours Test 03/05/18 20:19 03/05/18 21:10 03/06/18 00:20 03/06/18 00:48 White Blood Count 16.65 K/uL Red Blood Count 3.50 M/uL Hemoglobin 8.2 g/dL Hematocrit 26.1 % Mean Corpuscular Volume 74.6 fL Mean Corpuscular Hemoglobin 23.4 pg Mean Corpuscular Hemoglobin Concent 31.4 g/dl Platelet Count 335 K/uL Mean Platelet Volume 9.4 fL Neutrophils (%) (Auto) 91.8 % Lymphocytes (%) (Auto) 2.5 % Monocytes (%) (Auto) 4.4 % Eosinophils (%) (Auto) 0.1 % Basophils (%) (Auto) 0.1 % Neutrophils # (Auto) 15.29 K/uL Lymphocytes # (Auto) 0.41 K/uL Monocytes # (Auto) 0.74 K/uL Eosinophils # (Auto) 0.01 K/uL Basophils # (Auto) 0.01 K/uL RDW Standard Deviation 48.8 fL RDW Coefficient of Variation 17.9 % Immature Granulocyte % (Auto) 1.1 % Immature Granulocyte # (Auto) 0.19 K/uL Toxic Granulation 1+ Schistocytes 1+ Prothrombin Time 13.0 SECONDS Prothromb Time International Ratio 1.2 Sodium Level 127 mmol/L Potassium Level 7.0 mmol/L Chloride Level 101 mmol/L Carbon Dioxide Level 11 mmol/L Anion Gap 15.0 mmol/L Blood Urea Nitrogen 48 mg/dl Creatinine 2.03 mg/dl Est Creatinine Clear Calc Drug Dose 51.7 ml/min Estimated GFR () 43.6 Estimated GFR (Non- 37.6 BUN/Creatinine Ratio 23.7 Random Glucose 252 mg/dl Calcium Level 9.0 mg/dl Phosphorus Level 4.5 mg/dl 4.3 mg/dl Magnesium Level 1.3 mg/dl Total Bilirubin 0.9 mg/dl Direct Bilirubin 0.5 mg/dl Aspartate Amino Transf (AST/SGOT) 18 U/L Alanine Aminotransferase (ALT/SGPT) 15 U/L Alkaline Phosphatase 105 U/L Total Protein 7.5 gm/dl Albumin 1.6 gm/dl Lipase 105 U/L Urine Color DK YELLOW Urine Appearance CLOUDY Urine pH 5.0 Urine Specific [place] 1.017 Urine Protein 2+ Urine Glucose (UA) NEG Urine Ketones NEG Urine Occult Blood 3+ Urine Nitrite NEG Urine Bilirubin NEG Urine Urobilinogen NEG Urine Leukocyte Esterase LARGE Urine WBC (Auto) >30 /hpf Urine RBC (Auto) 10-30 /hpf Urine Hyaline Casts (Auto) 1-5 /lpf Urine Epithelial Cells (Auto) 0-5 /lpf Urine Bacteria (Auto) 2+ Uric Acid 6.7 mg/dl Bedside Glucose 240 mg/dl Test 03/06/18 03:53 03/06/18 07:09 Venous Blood pH 7.29 Venous Blood Partial Pressure CO2 27 mmHg Venous Blood Partial Pressure O2 23 mmHg Venous Blood HCO3 13 mmol/L Venous Blood Oxygen Saturation < 60.0 % Venous Blood Base Excess -12.1 mEq/L Sodium Level 130 mmol/L Potassium Level 6.2 mmol/L Chloride Level 108 mmol/L Carbon Dioxide Level 13 mmol/L Anion Gap 9.0 mmol/L Blood Urea Nitrogen 42 mg/dl Creatinine 1.76 mg/dl Est Creatinine Clear Calc Drug Dose 60.5 ml/min Estimated GFR () 51.8 Estimated GFR (Non- 44.7 BUN/Creatinine Ratio 23.6 Random Glucose 247 mg/dl Lactic Acid Level 2.4 mmol/L Calcium Level 8.9 mg/dl Total Creatine Kinase 110 U/L Bedside Glucose 243 mg/dl Assessment & Plan 03/06/18 discussed care with father at bedside certainly not any sort of surgical candidate patient really does not want to keep coming back to the hospital agree with comfort /palliative care. Hospice consult scheduled for this Thursday will sign off/ call if we can help in any way .
[2018-03-06 11:53] VITALS: BP 84/57; PULSE 152; PULSE 155; TEMP 36.6; O2SAT 96
[2018-03-06 11:56] VITALS: BP 84/57; PULSE 155; TEMP 36.6; O2SAT 96
[2018-03-06] MEDS ORDERED: MoRPHine SULFATE 5 MG/0.25 ML UDP PO PRN (12:00)
[2018-03-06] MEDS ORDERED: LORAZEPAM INJ 0.5 MG in SYRINGE 0.75 ML IV PRN (12:00)
[2018-03-06] MEDS ORDERED: LORAZEPAM 2 MG/ML 1 ML VIAL IV PRN (12:00)
--- NOTE | 2018-03-06 12:50 | Death Pronouncement Note ---
Pronouncement Note Date & Time of March 06, 2018. 1225 Pronouncement At time of pronouncement the patients pupils were fixed and dilated, there was no spontaneous respiratory effort, no palpable pulse, no audible heart tones, and no response to pain or voice.
--- NOTE | 2018-03-06 14:35 | Death Summary ---
Summary of Admission Date March 05, 2018 at 23:52 Date & Time of March 06, 2018. 1225 Cause of Hyperkalemia Secondary Diagnoses Acute renal failure Metastatic colon cancer Hospital Course HPI per admitting provider: Mr. Rose is a 47yo C male with prolonged and complicated history of metastatic colon adenocarcinoma. He was diagnosed in May 2010 and was treated with chemotherapy, XRT x 6 weeks and 5-FU. He had a LAR performed on and was treated with FOLFOX from 11/2010-02/2011. He had recurrent metastatic disease and underwent resection of liver metastases and colonic resection. He has a colostomy and urostomy bag in place. 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 He had gamma knife surgery performed in [place] 4 weeks ago. Patient is brought to the ER tonight by his family. He has had no oral intake of food/liquid or medications for the last 5-6 days. His family reports that he has been very weak, unable to ambulate by himself. He is also more sleepy and less responsive. In the ER he was tachycardic with HR in 140's sustained, BP 108/69. His labs reveal K of 7, BUN of 48 and Cr of 2.03. EKG with peaked T -waves present. He was administered Calcium gluconate/Insulin and D50. He has refused to take Kayexelate stating that it tastes too bad. Family at bedside to include mother, stepmother and sister HOSPITAL COURSE: In the morning, the patient was slightly more awake and alert, not speaking but nodding his head. Arrangements were being made for him to have hospice at home sooner than already arranged for Thursday. The account liaison hospice nurse was going to come this afternoon. Family requested he become a DNR and be kept comfortable. The patient quickly declined throughout the day with regards to his mentation and respiratory status. He at 1225 with his family present. Problem list as below: 1. Hyperkalemia, K+ 7 on arrival with EKG changes. Despite treatment his potassium remained elevate at 6.2. He declined further kayexelate therapy. he was given IV fluids overnight. 2. Acute kidney injury, Cr to 1.7 overnight after IV fluids, likely prerenal VERONICA 3. Metastatic colon cancer, was going to be transitioned to hospice on Thursday Copy To Ozzie Cohen M.D.
--- NOTE | 2018-03-09 07:54 | EDITING REQUIRED CODING QUERY ---
CODING QUERY To promote full compliance with coding requirements relating to patient care, provider participation is requested in all cases of first sampler uncertainty. Please assist us with the question(s) below: Coding Question(s): 1. There is documentation in the ER H&P that the patient's hyperkalemia may be secondary to tumor lysis. There is no further documentation regarding possible tumor lysis or ruling it out. Please clarify below, in your clinical opinion. (x ) Possible Tumor Lysis Syndrome ( ) Tumor Lysis Syndrome is ruled-out 2. There is documentation on the ER H&P regarding CT scan of the head being performed due to periodic encephalopathy and documentation of brain edema. There was no further documentation. Please clarify below, in your clinical opinion, regarding the significance of these diagnosis. ( x ) The periodic Encephalopathy and Brain Edema were significant diagnosis ( ) The periodic Encephalopathy and Brain Edema were not significant diagnosis Physician's Response(s): Thank you Kylee Hayes Principal Diagnosis: "_that condition established after study, to be chiefly responsible for occasioning the admission of the patient to the hospital for care." Co-Existing Principal Diagnosis: "_when two or more diagnoses equally meet the criteria for principal diagnosis as determined by the circumstances of admission, diagnostic work up, and/or therapy provided, and the Alphabetic Index, Tabular List, or another coding guideline does not provide sequencing direction, any one of the diagnoses may be sequenced first." "When the physician has documented what appears to be a current diagnosis in the body of the record, but has not included the diagnosis in the final diagnostic statement, the physician should be asked whether the diagnosis should be added." (Source [facility] 2 QTR90. p3-4)
== END 2018-03-06 14:18 | disposition expired | DRG 682 ==
LOC: C.EDC 19:23 → EDBD 19:23 → C.2T 23:52 → ENRESERV 03-06 00:04 → EDBEDREQ 03-06 12:00 → CANRESERV 03-06 12:01 → ENRESERV 03-06 12:01 → CANBEDREQ 03-06 13:36
PROVIDERS: ADMIT Internal Medicine; ATTEND Family Medicine
DX: E88.3 Tumor lysis syndrome (principal); G93.6 Cerebral edema; C18.9 Malignant neoplasm of colon, unspecified; C79.31 Secondary malignant neoplasm of brain; C78.7 Secondary malignant neoplasm of liver and intrahepatic bile duct; Z51.5 Encounter for palliative care; N39.0 Urinary tract infection, site not specified; E87.1 Hypo-osmolality and hyponatremia; R64 Cachexia; Z68.1 Body mass index [BMI] 19.9 or less, adult; N17.9 Acute kidney failure, unspecified; E87.5 Hyperkalemia; G13.1 Other systemic atrophy primarily affecting central nervous system in neoplastic disease; D72.829 Elevated white blood cell count, unspecified; R00.0 Tachycardia, unspecified; R62.7 Adult failure to thrive; E10.9 Type 1 diabetes mellitus without complications; Z51.81 Encounter for therapeutic drug level monitoring; Z79.899 Other long term (current) drug therapy; Z79.4 Long term (current) use of insulin; Z66 Do not resuscitate; Z93.6 Other artificial openings of urinary tract status; Z93.3 Colostomy status; Z83.3 Family history of diabetes mellitus